=== PATIENT | female | born 2000 | race Caucasian/White ===

== ENCOUNTER 2024-11-22 21:50 | Emergency (ER) | payer OTHER, SELFPAY ==
[2024-11-22 21:51] VITALS: BP 110/65; PULSE 138; TEMP 36.4; O2SAT 99; BMI 17.8
--- NOTE | 2024-11-22 22:15 | ED.NAVMDI1 ---
HPI - Nausea/Vomiting/Diarrhea General Chief complaint: Nausea/Vomiting/Diarrhea Stated complaint: nausea, vomiting Time Seen by Provider: 11/22/24 21:52 Source: patient Mode of arrival: walk-in History of Present Illness HPI Narrative: 24-year-old female presents for nausea and vomiting. She apparently has issues with chronic nausea and has seen specialist but no specific diagnosis has been made. The nausea got much worse this morning and she has been vomiting. No hematemesis or fever. Her significant other answers most of the questions for her because she is so uncomfortable. Related Data Previous Rx's ?Medication ?Instructions ?Recorded ondansetron 4 mg disintegrating 4 mg PO Q6H PRN nausea and 11/22/24 tablet vomiting #20 tabs Allergies Allergy/AdvReac Type Severity Reaction Status Date / Time No Known Drug Allergies Allergy Verified 11/22/24 21:55 Review of Systems ROS Narrative A ten point review of systems is negative except as noted above. PFSH PFSH Social History Little interest or pleasure in doing things: not at all Feeling down, depressed, or hopeless: not at all Exam Narrative Exam Narrative: Nurses note and vital signs reviewed and patient is not hypoxic. General: The patient appears uncomfortable and Skin: Warm, dry, pallor noted. There is no rash noted. Head: Normocephalic, atraumatic Eye: Normal conjunctiva, no drainage Ears, Nose, Mouth, and Throat: oral mucosa is slightly dry. Nares patent. Cardiovascular: Regular Rate and Rhythm Respiratory: Patient is in no distress, no accessory muscle use, lungs are clear to auscultation, no wheezing, rales or rhonchi Back: non-tender GI: Soft and nondistended Musculoskeletal: The patient has no evidence of calf tenderness, no pitting edema, symmetrical pulses noted bilaterally Neurological: Awake and alert Psychiatric: Cooperative, appears anxious Constitutional Vital Signs, click to edit/add: Last Vital Signs Temp 97.6 F 11/22/24 21:51 Pulse 138 H 11/22/24 21:51 Resp 20 11/22/24 21:51 BP 110/65 11/22/24 21:51 Pulse Ox 99 11/22/24 21:51 O2 Del Method Room Air 11/22/24 21:51 Course Vital Signs Vital signs: Vital Signs Temperature 97.6 F 11/22/24 21:51 Pulse Rate 138 H 11/22/24 21:51 Respiratory Rate 20 11/22/24 21:51 Blood Pressure 110/65 11/22/24 21:51 Pulse Oximetry 99 11/22/24 21:51 Oxygen Delivery Method Room Air 11/22/24 21:51 Temperature 97.6 F 11/22/24 21:51 Pulse Rate 138 H 11/22/24 21:51 Respiratory Rate 20 11/22/24 21:51 Blood Pressure 110/65 11/22/24 21:51 Pulse Oximetry 99 11/22/24 21:51 Oxygen Delivery Method Room Air 11/22/24 21:51 MDM - Nausea/Vomiting/Diarrhea MDM Narrative Medical decision making narrative: CAT scan shows enterocolitis. She seems to be feeling improved and is drinking some liquids now after being given IV fluids and IV Zofran. Blood work nonspecific, WBC is 18,000. Treatment diagnosis and follow-up were discussed with the patient and her significant other. Differential Diagnosis Differential diagnosis: Likely food poisoning, gastroenteritis and dehydration Lab Data Attestation: I reviewed the patient's lab results. Labs: Lab Results 11/22/24 Range/Units 22:00 WBC 18.7 H (4.0-11.0) 10^3/uL RBC 4.39 (4.20-5.40) 10^6/uL Hgb 12.9 (12.0-16.0) g/dL Hct 38.4 (36.0-48.0) % MCV 87.5 (81.0-99.0) fL MCH 29.4 (26.7-34.0) pg MCHC 33.6 (29.9-35.2) g/dL RDW 12.5 (11.0-15.0) % Plt Count 332 (150-450) 10^3/uL MPV 10.6 (9.5-13.5) fL Neut % (Auto) 94.7 H (43.0-75.0) % Lymph % (Auto) 3.4 L (20.5-60.0) % [place] % (Auto) 1.3 L (1.7-12.0) % Eos % (Auto) 0.1 L (0.9-7.0) % Baso % (Auto) 0.1 L (0.2-2.0) % Neut # (Auto) 17.7 H (1.4-6.5) 10^3/uL Lymph # (Auto) 0.6 L (1.2-3.8) 10^3/uL [place] # (Auto) 0.2 L (0.3-0.8) 10^3/uL Eos # (Auto) 0.0 (0.0-0.7) 10^3/uL Baso # (Auto) 0.0 (0.0-0.1) 10^3/uL Abs Immat Gran (auto) 0.08 H (0.00-0.03) 10^3/uL Imm/Tot Granulo (auto) 0.4 (0.0-0.5) % Sodium 141 (136-145) mmol/L Potassium 3.1 L (3.5-5.1) mmol/L Chloride 104 (98-107) mmol/L Carbon Dioxide 25.7 (21.0-32.0) mmol/L Anion Gap 14.4 BUN 14.0 (7.0-18.0) mg/dL Creatinine 0.92 (0.55-1.02) mg/dL Est GFR ( Amer) >60 (>=60 mL/min/1.73m^2) Est GFR (Non-Af Amer) >60 (>=60 mL/min/1.73m^2) BUN/Creatinine Ratio 15.2 Glucose 186 H (74-106) mg/dL Calcium 8.8 (8.5-10.1) mg/dL Serum HCG, Qual Negative (NEGATIVE) Imaging Data CT scan - abdomen: Radiologist's impression: ITS Impressions Abdomen/Pelvis CT 11/22/24 22:29 IMPRESSION: 1. Normal appendix. No inflammatory changes within the abdomen or the pelvis. 2. Scattered air-fluid levels present within prominent nondilated small and large bowel which may be secondary to an underlying mild enterocolitis. Electronically authenticated by: PATY PINEDA Date: 11/22/2024 23:35 Discharge Plan Discharge Chief Complaint: Nausea/Vomiting/Diarrhea Clinical Impression: Enterocolitis Patient Disposition: Home, Self-Care Time of Disposition Decision: 23:49 Condition: Good Mode of Transportation: Private Vehicle Prescriptions / Home Meds: New ondansetron 4 mg tablet,disintegrating 4 mg PO Q6H PRN (Reason: nausea and vomiting) Qty: 20 0RF Print Language: Ukrainian Instructions: Colitis (ED), Enteritis (ED) Referrals: MICHAEL CACERES [Primary Care Provider] - 1 week
[2024-11-22] MEDS: ONDANSETRON PF 4 MG/2 ML VIAL IV (22:19)
[2024-11-22] MEDS: 0.9 % SODIUM CHLORIDE 1,000 ML 1000 ML IV (22:19)
[2024-11-22 22:20] LABS: Basophils Percent Auto 0.1 % (0.2-2.0); Eosinophils Percent Auto 0.1 % (0.9-7.0); Hematocrit 38.4 % (36.0-48.0); Hemoglobin 12.9 g/dL (12.0-16.0); Immature Granulocytes Abs Auto 0.08 10^3/uL (0.00-0.03); Immature Granulocytes Pct Auto 0.4 % (0.0-0.5); Lymphocytes Absolute Auto 0.6 10^3/uL (1.2-3.8); Lymphocytes Percent Auto 3.4 % (20.5-60.0); Mean Corpuscular HGB Conc 33.6 g/dL (29.9-35.2); Mean Corpuscular Hemoglobin 29.4 pg (26.7-34.0); Mean Corpuscular Volume 87.5 fL (81.0-99.0); Mean Platelet Volume 10.6 fL (9.5-13.5); Monocytes Absolute Auto 0.2 10^3/uL (0.3-0.8); Monocytes Percent Auto 1.3 % (1.7-12.0); Neutrophils Absolute Auto 17.7 10^3/uL (1.4-6.5); Neutrophils Percent Auto 94.7 % (43.0-75.0); Platelet Count 332 10^3/uL (150-450); Red Blood Count 4.39 10^6/uL (4.20-5.40); Red Cell Distribution Width 12.5 % (11.0-15.0); White Blood Count 18.7 10^3/uL (4.0-11.0)
[2024-11-22 22:25] LABS: HCG Qualitative NEGATIVE (NEGATIVE); Internal Control Within Normal Limits
[2024-11-22 22:26] LABS: Anion Gap 14.4; BUN Creatinine Ratio 15.2; Calcium 8.8 mg/dL (8.5-10.1); Carbon Dioxide 25.7 mmol/L (21.0-32.0); Chloride 104 mmol/L (98-107); Estimated GFR (African America >60 (>=60 mL/min/1.73m^2); Estimated GFR (Non-African Ame >60 (>=60 mL/min/1.73m^2); Glucose 186 mg/dL (74-106); Potassium 3.1 mmol/L (3.5-5.1); Sodium 141 mmol/L (136-145)
--- NOTE | 2024-11-22 22:29 | CT_ITS ---
The [address] [address] Patient Name: ELISEO MURCIA MRN: [id number] date: 2000 Sex: F Assigned Patient Location: ER Current Patient Location: ER Accession/Order Number: [id number] Exam Date: 11/22/2024 22:45 Report Date: 11/22/2024 23:35 At the request of: TED VARMA Procedure: CT abdomen pelvis w con EXAM: CT abdomen pelvis w con HISTORY: Vomiting, WBC 18,000. COMPARISON: None. TECHNIQUE: Enhanced helical acquisition obtained through the abdomen and the pelvis. Dose reduction techniques were achieved by using automated exposure control and/or adjustment of mA and/or kV according to patient size and/or use of iterative reconstruction technique. FINDINGS: The visualized lung bases and the pleural spaces are clear. Unremarkable gallbladder. No significant biliary ductal dilatation. The liver, spleen, pancreas, adrenal glands and the kidneys are unremarkable. No enlarged lymph nodes within the abdomen or the pelvis. Normal appendix. IUD is present. No ascites or focal intraperitoneal fluid collections. Moderate stool burden. Scattered air-fluid levels within small and large bowel which may be secondary to an underlying mild enterocolitis. CT/CT abdomen pelvis w con IMPRESSION: 1. Normal appendix. No inflammatory changes within the abdomen or the pelvis. 2. Scattered air-fluid levels present within prominent nondilated small and large bowel which may be secondary to an underlying mild enterocolitis. Electronically authenticated by: PATY PINEDA Date: 11/22/2024 23:35
[2024-11-23 00:10] VITALS: BP 101/49; PULSE 117; O2SAT 97
== END 2024-11-23 00:10 | disposition home or self-care (01) ==
PROVIDERS: Emergency Provider Emergency Medicine; PCP Nurse Practitioner
DX: K52.9 Noninfective gastroenteritis and colitis, unspecified (principal)
CPT/HCPCS: 36415; 74177; 80048; 84703; 85025; 96361; 96374; 99285; J2405; Q9967

== ENCOUNTER 2025-03-01 17:02 | Emergency (ER) | payer OTHER, SELFPAY ==
[2025-03-01 17:12] VITALS: BP 132/64; PULSE 96; TEMP 36.8; O2SAT 100; BMI 17.8
--- OUTSIDE RECORDS SUMMARY | 2025-03-01 17:13 | XMS_ITS | CCD ---
Author Organization [facility] Care Team Providers Care Sleeve Separator Name Role Phone FABIEN BUSTOS JR Unavailable Unavailable FABIEN BUSTOS JR Unavailable Unavailable FABIEN BUSTOS JR Unavailable Unavailable FABIEN BUSTOS JR Unavailable Unavailable FABIEN BUSTOS JR Unavailable Unavailable Fabien Reyes Primary Care Provider FABIEN REYES JR Primary Care Unavailabl e Unknown, Referring Provider Unavailable Unav ailable Unavailable Unavailable SARAN GOMEZ Primary Care Physician [phone] Angeline Durbin Unavailable Zak Lorenz Unavailable Tammi Pulido Primary Care Physician [phone] Unallocated, [place] Provider Primary Care Provider FLAVIA WU Attending Unavailable AVERY MCLAIN Attending Unavailable OLIVA FIGUEROA Attending Unavailable NON STAFF Primary Care Provider Unavailabl e DO Thien Olea Emergency Provider NON STAFF Primary Care Unavailable Thien Olea Attending Unavailable Thien Olea Admitting Unavailable Nicki Anglin Admitting Unavailable Nicki Anglin Attending Unavailable Nicki Anglin Attending Unavailable GABE ALBARRAN Attending Unavailabl e Tammi Pulido Attending Unavailable Tammi Pulido Attending Unavailable Tammi Pulido Attending Unavailable Tammi Pulido Attending Unavailable Tammi Pulido Attending Unavailable Brigette Murcia Attending Unavailable Brigette Murcia Attending Unavailable Unallocated , Noms Provider Primary Care Provi lexus Ashok, PILOT CONTROL OPERATOR Tammi Herr Attending Unavailable Ashok, PILOT CONTROL OPERATOR Tammi Herr Admitting Unavailable Ashok, Tammi Herr Attending Unavailable Ashok, Tammi Herr Attending Unavailable Ashok, Tammi L Attending Unavailable Ashok, Tammi L Attending Unavailable Ashok, Tammi L Admitting Unavailable GABE ALBARRAN Attending Unavailabl e GABE ALBARRAN Attending Unavailabl e Allergies Allergy Classification Reported Allergen(s) Allergy Type Date of Onset Reaction(s) Facility (5 sources) Lactase Drug Allergy GI intolerance [facility] Medications Current Medications Medication Drug Class(es) Dates Sig (Normalized) Sig (Original) albuterol 0.83 mg/ml inhalation solution (7 sources) beta2-Adrenergic Agonist Start: 08-27-2024 take 2.5 mg by inhalation every six hours for wheezing albuterol 0.083% Inh Ingrid 3 mL 2.5 mg, 3 mL, Inhalation, q6hr for wheezing, 25 EA, Refill(s) 0 Start Date: 08/27/24 Status: Ordered Quantity: 25.0 Unit: EA Repeat number: 1 amoxicillin 875 mg oral tablet (2 sources) Penicillin-class Antibacterial Start: 09-14-2024 End: 09-19-2024 take 1 tablet by mouth twice daily amoxicillin 875 mg Tab 875 mg = 1 tab(s), Oral, BID, X 5 day(s), # 10 tab(s), Refills(s) 0, Pharmacy: [facility]/pharmacy #[id number], 165.5, cm, 09/14/24 12:45:00 EST, Height/Length Dosing, 49.9, kg, 09/14/24 12:45:00 EST, Weight Dosing Start Date: 09/14/24 Stop Date: 09/19/24 Status: Ordered azithromycin 250 mg oral tablet (2 sources) Macrolide Antimicrobial Start: 05-16-2024 End: 05-21-2024 Zithromax 250 mg Tab = 1 packet(s), Oral, As Directed, as directed on package labeling, X 5 day(s), # 6 tab(s), Refills(s) 0, [id number] 165.5, cm, 05/16/24 10:46:00 EDT, Height/Length Dosing, 50, kg, 05/16/24 10:46:00 EDT, Weight Dosing Start Date: 05/16/24 Stop Date: 05/21/24 Status: Ordered Start: 10-20-2023 End: 10-25-2023 azithromycin 250 mg Tab = 1 packet(s), Oral, As Directed, as directed on package labeling, X 5 day(s), # 6 tab(s), Refills(s) 0, Pharmacy: [facility]/pharmacy #[id number], 167, cm, 10/20/23 10:18:00 EST, Height/Length Dosing, 46.9, kg, 10/20/23 10:18:00 EST, Weight Dosing Start Date: 10/20/23 Stop Date: 10/25/23 Status: Ordered benzonatate 200 mg oral capsule (1 source) Non-narcotic Antitussive Start: 10-20-2023 End: 10-27-2023 take 1 capsule by mouth three times daily benzonatate 200 mg oral capsule 200 mg = 1 cap(s), Oral, TID, X 7 day(s), # 21 cap(s), Refills(s) 0, [id number] 167, cm, 10/20/23 10:18:00 EST, Height/Length Dosing, 46.9, kg, 10/20/23 10:18:00 EST, Weight Dosing Start Date: 10/20/23 Stop Date: 10/27/23 Status: Ordered docusate sodium 100 mg oral capsule (1 source) Start: 08-24-2019 End: 09-07-2019 take 1 capsule by mouth twice daily docusate sodium (COLACE) 100 MG capsule Take 1 capsule by mouth 2 times daily for 14 days 28 capsule 0 08/24/2019 09/07/2019 Active doxycycline monohydrate 50 mg oral tablet (2 sources) Tetracycline-class Drug Start: 06-12-2024 take 1 tablet by mouth in the morning doxycycline (Adoxa) 50 MG tablet Indications: Acne vulgaris Take 1 tablet (50 mg) by mouth in the morning and 1 tablet (50 mg) before bedtime. 60 tablet 11 06/12/2024 Active loratadine 10 mg oral tablet (2 sources) Start: 07-06-2023 take 1 tablet by mouth every twenty-four hours Claritin 10 MG 1 tablet Orally Once a day for 30 days Jun, Active methylPREDNISolone 4 mg oral tablet (4 sources) Corticosteroid Start: 05-16-2024 End: 05-22-2024 Medrol 4 mg Tab = 1 packet(s), Oral, As Directed, as directed on package labeling, X 6 day(s), # 21 tab(s), Refills(s) 0, Pharmacy: [facility]/pharmacy #[id number], 165.5, cm, 05/16/24 10:46:00 EDT, Height/Length Dosing, 50, kg, 05/16/24 10:46:00 EDT, Weight Dosing Start Date: 05/16/24 Stop Date: 05/22/24 Status: Ordered Start: 10-20-2023 End: 10-26-2023 Medrol 4 mg Tab = 1 packet(s ), Oral, As Directed, as directed on package labeling, X 6 day(s), # 21 tab(s), Refills(s) 0, Pharmacy: [facility]/pharmacy #[id number], 167, cm, 10/20/23 10:18:00 EST, Height/Length Dosing, 46.9, kg, 10/20/23 10:18:00 EST, Weight Dosing Start Date: 10/20/23 Stop Date: 10/26/23 Status: Ordered Start: 07-06-2023 Medrol (Kwaku) 4 MG as directed Orally for daily dose take half with breakfast half with dinner for 6 days Jun, Active nitrofurantoin, macrocrystals 25 mg / nitrofurantoin, monohydrate 75 mg oral capsule (1 source) Nitrofuran Antibacterial Start: 08-24-2019 End: 08-31-2019 take 1 capsule by mouth twice daily nitrofurantoin, macrocrystal-monohydrate, (MACROBID) 100 MG capsule Take 1 capsule by mouth 2 times daily for 7 days 14 capsule 0 08/24/2019 08/31/2019 Active omeprazole 40 mg delayed release oral capsule (4 sources) Proton Pump Inhibitor Start: 08-24-2023 take 1 capsule by mouth once daily omeprazole 40 mg Cap-DR 40 mg = 1 cap(s), Oral, Daily, # 90 cap(s), Refills(s) 3, Pharmacy: [facility]/pharmacy #[id number], 167, cm, 08/24/23 9:42:00 EDT, Height/Length Dosing, 48.7, kg, 08/24/23 9:42:00 EDT, Weight Dosing Start Date: 08/24/23 Status: Ordered Start: 07-27-2023 take 1 capsule by [facility] once daily omeprazole 40 mg Cap-DR 40 mg = 1 cap(s), Oral, Daily, # 30 cap(s), Refills(s) 0, Pharmacy: [facility]/pharmacy #[id number], 167, cm, 07/27/23 10:36:00 EDT, Height/Length Dosing, 47.2, kg, 07/27/23 10:36:00 EDT, Weight Dosing Start Date: 07/27/23 Status: Ordered Start: 02-23-2022 take 1 capsule by [facility] once daily Omeprazole 20 MG Oral Capsule Delayed Release TAKE 1 CAPSULE BY MOUTH EVERY DAY Quantity: 30 Refills: 2 Ordered: 24-Mar-2022 Ashly JOHNSTONNDiamondTEXTILE CONSERVATORSarah Start : 23-Feb-2022 Active ondansetron 4 mg disintegrating oral tablet (14 sources) Serotonin-3 Receptor Antagonist Start: 11-05-2024 take 1 tablet by mouth three times daily as needed for nausea and vomiting ondansetron 4 mg Dis Tab See Instructions, DISSOLVE 1 TABLET IN MOUTH 3 TIMES A DAY NEEDED FOR NAUSEA AND VOMITING, # 10 tab(s), Refills(s) 1, Pharmacy: [facility] STORE [id number], 165.5, cm, 09/14/24 12:45:00 EST, Height/Length Dosing, 49.9, kg, 09/14/24 12:45:00 EST, Weight Dosing Start Date: 11/05/24 Status: Ordered Quantity: 10.0 Unit: tab(s) Repeat number: 1 Start: 08-08-2024 take 1 tablet by [facility] three times daily as needed for nausea and vomiting ondansetron 4 mg Dis Tab See Instructions, DISSOLVE 1 TABLET IN MOUTH 3 TIMES A DAY NEEDED FOR NAUSEA AND VOMITING, # 10 tab(s), Refills(s) 1, Pharmacy: [facility] STORE [id number], 165.5, cm, 05/16/24 10:46:00 EDT, Height/Length Dosing, 50, kg, 05/16/24 10:46:00 EDT, Weight Dosing Start Date: 08/08/24 Status: Ordered Start: 10-20-2023 take 1 tablet by maryjane th every six hours as needed for nausea ondansetron 4 mg Tab 4 mg = 1 tab(s), Oral, q6hr, PRN Nausea/Vomiting, # 12 tab(s), Refills(s) 1, Pharmacy: [facility]/pharmacy #[id number], 167, cm, 10/20/23 10:18:00 EST, Height/Length Dosing, 46.9, kg, 10/20/23 10:18:00 EST, Weight Dosing Start Date: 11/17/23 Status: Ordered polyethylene glycol 3350 07571 mg powder for oral solution (1 source) Osmotic Laxative Start: 08-24-2019 End: 09-23-2019 take 17 g by mouth once daily polyethylene glycol (MIRALAX) powder Take 17 g by mouth daily 510 g 0 08/24/2019 09/23/2019 Active promethazine hydrochloride 1.25 mg/ml oral solution (1 source) Phenothiazine Start: 03-07-2023 take 6.25 mg by mouth every six hours as needed for nausea promethazine 6.25 mg/5 mL Oral Syrup 6.25 mg = 5 mL, Oral, q6hr, PRN for nausea/vomiting, # 120 mL, Refills(s) 0 Start Date: 03/07/23 Status: Ordered 3 ml sodium chloride 9 mg/ml injection (1 source) Start: 08-24-2019 sodium chloride flush 0.9 % injection 10 mL tretinoin 0.25 mg/ml topical cream (2 sources) Retinoid Start: 06-12-2024 tretinoin (Retin-A) 0.025 % cream Indications: Acne vulgaris Apply thin layer to face at bedtime 45 g 11 06/12/2024 Active 24 hr venlafaxine 37.5 mg extended release oral capsule (20 sources) Serotonin and Norepinephrine Reuptake Inhibitor Start: 01-21-2025 take 1 capsule by mouth once daily venlafaxine 37.5 mg Cap-ER See Instructions, TAKE 1 CAPSULE BY MOUTH EVERY DAY, # 90 cap(s), Refills(s) 0, Pharmacy: [facility] STORE [id number], 165, cm, 11/26/24 12:35:00 EST, Height/Length Dosing, 47.8, kg, 11/26/24 12:35:00 EST, Weight Dosing Start Date: 01/21/25 Status: Ordered Quantity: 90.0 Unit: cap(s) Repeat number: 1 Start: 10-25-2024 take 1 capsule by mo ut once daily venlafaxine 37.5 mg Cap-ER See Instructions, TAKE 1 CAPSULE BY MOUTH EVERY DAY, # 90 cap(s), Refills(s) 0, Pharmacy: [facility] ST[facility] [id number], 165.5, cm, 09/14/24 12:45:00 EST, Height/Length Dosing, 49.9, kg, 09/14/24 12:45:00 EST, Weight Dosing Start Date: 10/25/24 Status: Ordered Start: 07-25-2024 take 37.5 mg by mout once daily Venlafaxine Active 37.5 MG PO Daily August 15, 2024 12:00am Start: 07-22-2021 take 1 capsule by [facility] once daily Effexor XR 37.5 mg Cap-ER 37.5 mg = 1 cap(s), Oral, Daily, # 90 cap(s), Refills(s) 0, [id number] 167, cm, 01/04/24 8:51:00 EDT, Height/Length Dosing, 50, kg, 01/04/24 8:51:00 EDT, Weight Dosing Start Date: 04/27/24 Status: Ordered take 1 tablet by [facility] once daily at mealtime Effexor 50 MG 1 tablet with food Orally Once a day Active Effexor 37.5 MG TABS Quantity: 0 Refills: 0 Ordered: 23-Feb-2022 DO Active Zofran ODT 4 mg Tab-Dis (8 sources) Start: 01-18-2025 take 1 tablet by mouth every eight hours as needed for nausea Zofran ODT 4 mg Tab-Dis 4 mg = 1 tab(s), Oral, q8hr, PRN Nausea/Vomiting, # 30 tab(s), Refills(s) 1, Pharmacy: [facility]/pharmacy #[id number], 165, cm, 11/26/24 12:35:00 EST, Height/Length Dosing, 47.8, kg, 11/26/24 12:35:00 EST, Weight Dosing Start Date: 01/18/25 Status: Ordered Quantity: 30.0 Unit: tab(s) Repeat number: 2 Indication: Nausea Start: 11-26-2024 take 1 tablet by maryjane th every eight hours as needed for nausea Zofran ODT 4 mg Tab-Dis 4 mg = 1 tab(s), Oral, q8hr, PRN Nausea/Vomiting, # 30 tab(s), Refills(s) 1, Pharmacy: [facility]/pharmacy #[id number], 165, cm, 11/26/24 12:35:00 EST, Height/Length Dosing, 47.8, kg, 11/26/24 12:35:00 EST, Weight Dosing Start Date: 11/26/24 Status: Ordered Start: 04-27-2024 take 1 tablet by maryjane th three times daily as needed for nausea Zofran ODT 4 mg Tab-Dis 4 mg = 1 tab(s), Oral, TID, PRN Nausea/Vomiting, # 10 tab(s), Refills(s) 1, Pharmacy: [facility]/pharmacy #[id number], 167, cm, 01/04/24 8:51:00 EDT, Height/Length Dosing, 50, kg, 01/04/24 8:51:00 EDT, Weight Dosing Start Date: 04/27/24 Status: Ordered Start: 08-24-2023 take 1 tablet by maryjane th three times daily as needed for nausea Zofran ODT 4 mg Tab-Dis 4 mg = 1 tab(s), Oral, TID, PRN Nausea/Vomiting, # 10 tab(s), Refills(s) 1, Pharmacy: [facility]/pharmacy #[id number], 167, cm, 08/24/23 16:01:00 EDT, Height/Length Dosing, 47, kg, 08/24/23 16:01:00 EDT, Weight Dosing Start Date: 08/24/23 Status: Ordered Completed/Discontinued Medications Medication Drug Class(es) Dates Sig (Normalized) Sig (Original) hydrOXYzine hydrochloride 25 mg oral tablet (1 source) Antihistamine Start: 03-07-2023 take 8 tablets by mouth once daily as needed hydrOXYzine hydrochloride 25 mg Tab 25 mg = 1 tab(s), Oral, QID, PRN Nausea, Can take up to 2 tabs in a single dose. Do not exceed 8 tabs per day., # 120 tab(s), Refills(s) 1, Pharmacy: [facility]/pharmacy #[id number], 167, cm, 03/07/23 13:34:00 EDT, Height/Length Dosing, 48.1, kg, 03/07/23 13:43:00... Start Date: 03/07/23 Status: Ordered iohexol (OMNIPAQUE 240) injection 50 mL (1 source) Start: 08-24-2019 End: 08-24-2019 iohexol (OMNIPAQUE 240) injection 50 mL Iopamidol (1 source) Radiographic Contrast Agent Start: 08-24-2019 End: 08-24-2019 iopamidol (ISOVUE-370) 76 % injection 110 mL linaclotide 0.072 mg oral capsule (2 sources) Guanylate Cyclase-C Agonist Start: 02-23-2022 take 1 capsule by mouth once daily Linzess 72 MCG Oral Capsule TAKE 1 CAPSULE Daily Quantity: 90 Refills: 3 Ordered: 23-Feb-2022 Pepple RECOVERY MANAGER-TEXTILE CONSERVATOR, Sarah Start : 23-Feb-2022 Active Prior auth, prior failed attempts of benefiber and Miralax, IBS-C oseltamivir 75 mg oral capsule (2 sources) Neuraminidase Inhibitor Start: 11-29-2023 End: 12-04-2023 take 1 capsule by mouth in the morning oseltamivir (Tamiflu) 75 MG capsule Indications: Influenza A Take 1 capsule (75 mg) by mouth in the morning and 1 capsule (75 mg) before bedtime. Do all this for 5 days. 10 capsule 0 11/29/2023 12/04/2023 Problems Active Problems Problem Classification Problem Date Documented Da te Episodic/Chronic Abdominal pain (20 sources) Unspecified abdominal pain; Translations: [Abdominal pain] Onset: 8 07-27-2023 Episodic Anxiety disorders (1 source) Anxiety disorder; Translations: [Anxiety disorder, unspecified] Onset: Chronic Chronic obstructive pulmonary disease and bronchiectasis (10 sources) Bronchitis 10-20-2023 Episodic Esophageal disorders (2 sources) Gastroesophageal reflux disease; Translations: [Esophageal reflux] Chronic Genitourinary symptoms and ill-defined conditions (1 source) Dysuria; Translations: [Dysuria] Episodic Influenza (2 sources) Influenza due to Influenza A virus; Translations: [Influenza due to other identified influenza virus with other respiratory manifestations] 11-29-2023 Episodic Malaise and fatigue (1 source) Fatigue 02-13-2025 Episodic Mood disorders (11 sources) Depression 08-24-2023 Chronic Nausea and vomiting (20 sources) Nausea; Translations: [Nausea] Onset: 3 Episodic Other gastrointestinal disorders (2 sources) Irritable bowel syndrome characterized by constipation; Translations: [Irritable bowel syndrome] Chronic Other gastrointestinal disorders (1 source) Constipation; Translations: [Constipation, unspecified constipation type] Episodic Other gastrointestinal disorders (1 source) Constipation, unspecified; Translations: [Constipation, unspecified] Onset: 3 Episodic Other gastrointestinal disorders (12 sources) Heartburn 07-27-2023 Episodic Other gastrointestinal disorders (12 sources) History of irritable bowel syndrome 07-27-2023 Episodic Other lower respiratory disease (1 source) Other forms of dyspnea; Translations: [Chronic dyspnea] 08-15-2024 Episodic Other lower respiratory disease (1 source) Shortness of breath; Translations: [Shortness of breath] Onset: 4 Episodic Other lower respiratory disease (7 sources) Dyspnea 08-27-2024 Episodic Other nutritional; endocrine; and metabolic disorders (15 sources) Body mass index less than 20; Translations: [Body mass index (BMI) 19.9 or less, adult] Onset: Episodic Other nutritional; endocrine; and metabolic disorders (12 sources) Underweight; Translations: [Underweight] Onset: 4 08-17-2023 Episodic Other nutritional; endocrine; and metabolic disorders (1 source) Loss of appetite 02-13-2025 Episodic Other upper respiratory disease (1 source) Seasonal allergy 02-13-2025 Chronic Other upper respiratory infections (10 sources) Sinusitis 10-20-2023 Chronic Other upper respiratory infections (6 sources) Acute pharyngitis, unspecified; Translations: [Acute sinusitis, unspecified] Onset: Episodic Otitis media and related conditions (10 sources) Otitis media; Translations: [Otitis media, unspecified, unspecified ear] Onset: 4 Episodic Suicide and intentional self-inflicted injury (1 source) Suicidal thoughts; Translations: [Suicidal ideations] Onset: 3 Episodic Unclassified (2 sources) Unknown / UNK(Unknown) Onset: 8 Unclassified (20 sources) Patient encounter status 12-21-2022 Past or Other Problems Problem Classification Problem Date Documented Da te Episodic/Chronic Other skin disorders (2 sources) Acne vulgaris; Translations: [Acne vulgaris] 06-12-2024 Episodic Unclassified (1 source) R10.9/R14.0/K22. 4/LINDEN OFF/DR Onset: 11-17-2017 Unclassified (1 source) Cough R05.9 Results Test Name Value Interpretation Reference Range Facility T3 Freeon 02-15-2025 Free T3 [Mass/Vol] 3.0 pg/mL Invalid Interpretation Code 2.0-4.4 [facility] Comment on above: Result Comment: Perf ormed at: [facility] [address] [id number] PhD Clementine Diego Performed By: #### 2 [id number] #### [facility] [address] [place] [address] Ambulatory Visit Summaryon 0 02-13-2025 Ambulatory Visit Summary Ambulatory Visit Summary TOO HANSA J :2000 Visit Date:02/13/2025 Ambulatory Visit Instructions Your Diagnosis Fatigue No appetite Underweight Seasonal allergies BMI less than 19,adult Non-smoker Your Care Team Attending Physician - Tammi Braun Primary Care Physician - Tammi Braun This Is Your Medications List albuterol (albuterol 0.083% Inh Ingrid 3 mL) ondansetron (ondansetron 4 mg Dis Tab) venlafaxine (venlafaxine 37.5 mg Cap-ER) Procedures Performed Surgery. Discharge Vitals Heart Rate (Peripheral) 98 Respiratory Rate 18 Blood Pressure 94/60 Height 165.0 cm Height 65 in Weight 48.8 kg Weight 107.585 lb BMI 17.92 Medications What How Much When Instructions Unchanged albuterol (albuterol 0.083% Inh Ingrid 3 mL) 3 Milliliter Inhalation Every 6 hours as needed for for wheezing Unchanged ondansetron (ondansetron 4 mg Dis Tab) See instructions DISSOLVE 1 TABLET IN MOUTH 3 TIMES A DAY NEEDED FOR NAUSEA AND VOMITING Unchanged venlafaxine (venlafaxine 37.5 mg Cap-ER) See instructions TAKE 1 CAPSULE BY MOUTH EVERY DAY Allergies No Known Allergies Problems Ongoing - Any problem that you are currently receiving treatment for. BMI less than 19,adult Bronchitis Chronic nausea Fatigue Heart burn History of IBS Left upper quadrant pain Nausea No appetite Otitis media Pelvic pain Pre-op exam Pre-op testing Seasonal allergies Shortness of breath Sinusitis Underweight Historical - Any problem that you are no longer receiving treatment for. Depression Patient Survey You may receive a survey via text or e-mail asking about your office visit. Please share your experience with us by completing your survey. We appreciate your feedback and thank you for choosing us for your care. Normal [facility] CBC w/ Auto Diffon 5 Basophils/100 WBC (Bld) 0.6 % Normal 0.0-2.0 [facility] Comment on above: Performed By: #### 2 [id number] #### [facility] [address] [place] [address] Basophils/Leukocytes Auto (Bld) [Pure # fraction] 0.0 E9/L Normal 0.0-0.2 [facility] Comment on above: Performed By: #### 2 [id number] #### [facility] [address] [place] [address] Eosinophils (Bld) [#/Vol] 0.1 E9/L Normal 0.0-0.5 [facility] Comment on above: Performed By: #### 2 [id number] #### [facility] [address] [place] [address] Eosinophils/100 WBC (Bld) 1.0 % Normal 0.0-8.0 [facility] Comment on above: Performed By: #### 2 [id number] #### [facility] [address] [place] [address] Erythrocyte distribution width (RBC) [Ratio] 14.0 % Normal 10.9-14.2 [facility] Comment on above: Performed By: #### 2 [id number] #### [facility] [address] [place] [address] Hematocrit (Bld) [Volume fraction] 39.9 % Normal 34.0-46.0 [facility] Comment on above: Performed By: #### 2 [id number] #### [facility] [address] [place] [address] Hemoglobin (Bld) [Mass/Vol] 13.3 g/dL Normal 12.0-16.0 [facility] Comment on above: Performed By: #### 2 [id number] #### [facility] [address] [place] [address] Lymphocytes (Bld) [#/Vol] 1.8 E9/L Normal 1.0-4.0 [facility] Comment on above: Performed By: #### 2 [id number] #### [facility] [address] [place] [address] Lymphocytes/100 WBC (Bld) 22.5 % Normal 14.0-50.0 [facility] Comment on above: Performed By: #### 2 [id number] #### [facility] [address] [place] [address] MCH (RBC) [Entitic mass] 29.7 pg Normal 27.0-34.0 [facility] Comment on above: Performed By: #### 2 [id number] #### [facility] [address] [place] [address] MCHC (RBC) [Mass/Vol] 33.3 g/dL Normal 31.4-36.0 [facility] Comment on above: Performed By: #### 2 [id number] #### [facility] [address] [place] [address] MCV (RBC) [Entitic vol] 89.2 fL Normal 80.0-100.0 [facility] Comment on above: Performed By: #### 2 [id number] #### [facility] [address] [place] [address] Monocytes (Bld) [#/Vol] 0.4 E9/L Normal 0.2-1.0 [facility] Comment on above: Performed By: #### 2 [id number] #### [facility] [address] [place] [address] Neutrophils (Bld) [#/Vol] 5.6 E9/L Normal 2.0-7.5 [facility] Comment on above: Performed By: #### 2 [id number] #### [facility] [address] [place] [address] Neutrophils/100 WBC (Bld) 70.4 % Normal 36.0-75.0 [facility] Comment on above: Performed By: #### 2 [id number] #### [facility] [address] [place] [address] Platelet mean volume (Bld) [Entitic vol] 9.4 fL Normal 6.4-10.8 [facility] Comment on above: Performed By: #### 2 [id number] #### [facility] [address] [place] [id number] Platelets (Bld) [#/Vol] 323.0 E9/L Normal 150.0-500. 0 [facility] Comment on above: Performed By: #### 2 [id number] #### [facility] [address] [place] [address] RBC (Bld) [#/Vol] 4.5 E12/L Normal 4.3-5.9 [facility] Comment on above: Performed By: #### 2 [id number] #### [facility] [address] [place] [address] WBC corrected for nucl RBC Auto (Bld) [#/Vol] 7.9 E9/L Normal 4.0-11.[address] [facility] [facility] Comment on above: Performed By: #### [id number] #### [facility] [address] [place] [id number] CHEMISTRYOrdered By: SYSTEM SYSTEM on 02-13-2025 25-hydroxyvitamin D3 [Mass/Vol] 13.8 ng/mL Low 30.0 - 100.0 ng/mL Remisol Chem Albumin [Mass/Vol] 4.2 g/dL Normal 3.3 - 5.0 gm/dL Remisol Chem Albumin/Globulin [Mass ratio] 1.4 {ratio} Normal 1.1 - 2.2 Remisol Chem ALP [Catalytic activity/Vol] 63 [iU]/d Normal 21 - 98 Int._Unit/ L Remisol Chem ALT No additional P-5'-P [Catalytic activity/Vol] 11 [iU]/d Normal 6 - 46 Int._Unit/ L Remisol Chem Anion gap [Moles/Vol] 11 mmol/L Normal 6 - 16 mEq/L Remisol Chem AST [Catalytic activity/Vol] 14 [iU]/d Normal 5 - 43 Int._Unit/ L Remisol Chem Bilirubin [Mass/Vol] 0.7 mg/dL Normal 0.0 - 1 .1 mg/dL Remisol Chem Calcium [Mass/Vol] 9.0 mg/dL Normal 8.9 - 11. 1 mg/dL Remisol Chem Chloride [Moles/Vol] 106 mmol/L Normal 101 - 1 11 mmol/L Remisol Chem CO2 [Moles/Vol] 26 mmol/L Normal 21 - 31 mmol/L Remisol Chem Cobalamin (Vitamin B12) [Mass/Vol] 465 pg/mL Normal 50 - 1500 pg/mL Remisol Chem Creatinine [Mass/Vol] 0.6 mg/dL Normal 0.5 - 1.3 mg/dL Remisol Chem eGFR 128 mL/min/1.73 m2 Normal >=59mL/mi n /1.73 m2 Remisol Chem Ferritin [Mass/Vol] 7 ng/mL Low 11 - 307 ng/mL Remisol Chem Free T4 [Mass/Vol] 0.77 ng/dL Normal 0.58 - 1.64 ng/dL Remisol Chem Globulin (S) [Mass/Vol] 2.9 g/dL Normal 1.4 - 4.0 gm/dL Remisol Chem Glucose [Mass/Vol] 69 mg/dL Normal 55 - 199 mg/dL Remisol Chem Iron [Mass/Vol] 116 ug/dL Normal 35 - 153 mcg/dL Remisol Chem Potassium [Moles/Vol] 4.1 mmol/L Normal 3.5 - 5.3 mmol/L Remisol Chem Protein [Mass/Vol] 7.1 g/dL Normal 6.0 - 7.8 gm/dL Remisol Chem Sodium [Moles/Vol] 139 mmol/L Normal 135 - 145 mmol/L Remisol Chem TSH Qn 1.91 m[IU]/L Normal 0.34 - 5.60 mcIU/mL Remisol Chem Urea nitrogen [Mass/Vol] 12 mg/dL Normal 5 - 21 mg/dL Remisol Chem Urea nitrogen/Creatinine [Mass ratio] 20 mg/mg Normal 10 - 20 Remisol Chem CMPon 02-13-2025 Albumin [Mass/Vol] 4.2 g/dL Normal 3.3-5.0 [facility] Comment on above: Order Comment: offic e called only got one sst, office to put cmp label on sst tube and place other labels in bag to share. [id number] 02/13/2025 10:04:13 EDT Performed By: #### 2 [id number] #### [facility] [address] [place] [address] Albumin/Globulin (S) [Mass conc ratio] 1.4 Normal 1.1-2.2 [facility] Comment on above: Order Comment: offic e called only got one sst, office to put cmp label on sst tube and place other labels in bag to share. [id number] 02/13/2025 10:04:13 EDT Performed By: #### 2 [id number] #### [facility] [address] [place] [address] ALP [Catalytic activity/Vol] 63 Int._Unit/L Normal 21-98 [facility] Comment on above: Order Comment: offic e called only got one sst, office to put cmp label on sst tube and place other labels in bag to share. [id number] 02/13/2025 10:04:13 EDT Performed By: #### 2 [id number] #### [facility] [address] [place] [address] ALT No additional P-5'-P [Catalytic activity/Vol] 11 Int._Unit/L Normal 6-46 [facility] Comment on above: Order Comment: offic e called only got one sst, office to put cmp label on sst tube and place other labels in bag to share. [id number] 02/13/2025 10:04:13 EDT Performed By: #### 2 [id number] #### [facility] [address] [place] [address] Anion gap [Moles/Vol] 11 mmol/L Normal 6-16 [facility] Comment on above: Order Comment: offic e called only got one sst, office to put cmp label on sst tube and place other labels in bag to share. [id number] 02/13/2025 10:04:13 EDT Performed By: #### 2 [id number] #### [facility] [address] [place] [address] AST [Catalytic activity/Vol] 14 Int._Unit/L Normal 5-43 [facility] Comment on above: Order Comment: offic e called only got one sst, office to put cmp label on sst tube and place other labels in bag to share. [id number] 02/13/2025 10:04:13 EDT Performed By: #### 2 [id number] #### [facility] [address] [place] [address] Bilirubin [Mass/Vol] 0.7 mg/dL Normal 0.0-1.1 [facility] Comment on above: Order Comment: offic e called only got one sst, office to put cmp label on sst tube and place other labels in bag to share. [id number] 02/13/2025 10:04:13 EDT Performed By: #### 2 [id number] #### [facility] [address] [place] [address] Calcium [Mass/Vol] 9.0 mg/dL Normal 8.9-11.1 [facility] Comment on above: Order Comment: offic e called only got one sst, office to put cmp label on sst tube and place other labels in bag to share. [id number] 02/13/2025 10:04:13 EDT Performed By: #### 2 [id number] #### [facility] [address] [place] [address] Chloride [Moles/Vol] 106 mmol/L Normal 101-111 [facility] Comment on above: Order Comment: offic e called only got one sst, office to put cmp label on sst tube and place other labels in bag to share. [id number] 02/13/2025 10:04:13 EDT Performed By: #### 2 [id number] #### [facility] [address] [place] [address] CO2 [Moles/Vol] 26 mmol/L Normal 21-[address] [facility] Comment on above: Order Comment: offic e called only got one sst, office to put cmp label on sst tube and place other labels in bag to share. [id number] 02/13/2025 10:04:13 EDT Performed By: #### 2 [id number] #### [facility] [address] [place] [address] Creatinine [Mass/Vol] 0.6 mg/dL Normal 0.5-1.3 [facility] Comment on above: Order Comment: offic e called only got one sst, office to put cmp label on sst tube and place other labels in bag to share. [id number] 02/13/2025 10:04:13 EDT Performed By: #### 2 [id number] #### [facility] [address] [place] [address] Globulin (S) [Mass/Vol] 2.9 g/dL Normal 1.4-4.0 [facility] Comment on above: Order Comment: offic e called only got one sst, office to put cmp label on sst tube and place other labels in bag to share. [id number] 02/13/2025 10:04:13 EDT Performed By: #### 2 [id number] #### [facility] [address] [place] [address] Glucose [Mass/Vol] 69 mg/dL Normal 55-199 [facility] Comment on above: Order Comment: offic e called only got one sst, office to put cmp label on sst tube and place other labels in bag to share. [id number] 02/13/2025 10:04:13 EDT Performed By: #### 2 [id number] #### [facility] [address] [place] [address] Potassium [Moles/Vol] 4.1 mmol/L Normal 3.5-5.3 [facility] Comment on above: Order Comment: offic e called only got one sst, office to put cmp label on sst tube and place other labels in bag to share. [id number] 02/13/2025 10:04:13 EDT Performed By: #### 2 [id number] #### [facility] [address] [place] [address] Protein [Mass/Vol] 7.1 g/dL Normal 6.0-7.8 [facility] Comment on above: Order Comment: offic e called only got one sst, office to put cmp label on sst tube and place other labels in bag to share. [id number] 02/13/2025 10:04:13 EDT Performed By: #### 2 [id number] #### [facility] [address] [place] [address] Sodium [Moles/Vol] 139 mmol/L Normal 135-145 [facility] Comment on above: Order Comment: offic e called only got one sst, office to put cmp label on sst tube and place other labels in bag to share. [id number] 02/13/2025 10:04:13 EDT Performed By: #### 2 [id number] #### [facility] [address] [place] [address] Urea nitrogen [Mass/Vol] 12 mg/dL Normal 5-21 [facility] Comment on above: Order Comment: offic e called only got one sst, office to put cmp label on sst tube and place other labels in bag to share. [id number] 02/13/2025 10:04:13 EDT Performed By: #### 2 [id number] #### [facility] [address] [place] [address] Urea nitrogen/Creatinine [Mass ratio] 20 No Units Normal 10-20 [facility] Comment on above: Order Comment: offic e called only got one sst, office to put cmp label on sst tube and place other labels in bag to share. [id number] 02/13/2025 10:04:13 EDT Performed By: #### 2 [id number] #### [facility] [address] [place] [address] Family Medicine Office/Clini c Noteon 02-13-2025 Family Medicine Office/Clinic Note Family Medicine Office/Clinic Note HPI Staff Hansa is a 24 year old female presenting for acute visit Onset: 2-3 months Pt c/o fatigue will sleep 12 hours a night and still feel tired, hard time opening her eye and getting up. concerned with nutritional deficiency has no appetite when eating she has been eating fruits/chicken/beef/veget aravind. Pt denies drinking any protein drinks or using protein powder. c/o of headaches when she wakes up lasting 1.5 hours and then comes back around 3:30-4pm last a few hours has been happening everyday. History of Present Illness pt present today c/o severe fatigue and nutritional deficiency. Review of Systems PHQ Score Initial Depression Screen Score: 0 SCORE Physical Exam Vitals & Measurements HR: 98(Peripheral) RR: 18 BP: 94/60 SpO2: 98% HT: 165.0 cm HT: 65 in WT: 48.8 kg WT: 107.585 lb BMI: 17.92 General: alert, no acute distress ENMT: oral mucosa moist, no pharyngeal erythema or exudate Cardiovascular: regular rate and rhythm, normal peripheral perfusion Respiratory: Lungs CTA, respirations non labored Extremities: no deformity, no trauma Neurological: oriented x 4, LOC appropriate for age, CN II-XII intact, motor strength equal & normal bilaterally, speech normal Assessment/Plan 1. Fatigue (R53.83: Other fatigue) pt c/o severe fatigue. will check labs today. discussed adding protein shakes daily. pt does have family history of diabetes. when attempting to draw labs her vein blew and she nearly passed out. became very pale and sweaty. she will return for a nurse visit to get the rest of the labs. encouraged her to drink plenty of water before she returns. will call her with those results. RTC 1 month Ordered: CBC w/ Auto Diff Comprehensive Metabolic Panel Ferritin Free T4 Iron Level T3 Free Thyroid Stimulating Hormone Vitamin B12 Level Vitamin D 25 Hydroxy 2. No appetite (R63.0: Anorexia) pt is no longer nauseated but just has no appetite. 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 she does not feel she was very helpful. Ordered: CBC w/ Auto Diff Comprehensive Metabolic Panel Ferritin Free T4 Iron Level T3 Free Thyroid Stimulating Hormone Vitamin B12 Level Vitamin D 25 Hydroxy 3. Underweight (R63.6: Underweight) pt is concerned that she has no appetite and can not gain weight. will check labs. encouraged small frequent meals. adding as much protein as possible. pt was provided a couple chocolate ensures to try. Ordered: CBC w/ Auto Diff Comprehensive Metabolic Panel Ferritin Free T4 Iron Level T3 Free Thyroid Stimulating Hormone Vitamin B12 Level Vitamin D 25 Hydroxy 4. Seasonal allergies (J30.2: Other seasonal allergic rhinitis) Kenalog injection given Ordered: CBC w/ Auto Diff Comprehensive Metabolic Panel Ferritin Free T4 Iron Level T3 Free Thyroid Stimulating Hormone Vitamin B12 Level Vitamin D 25 Hydroxy 5. BMI less than 19,adult (Z68.1: Body mass index [BMI] 19.9 or less, adult) BMI education Ordered: CBC w/ Auto Diff Comprehensive Metabolic Panel Ferritin Free T4 Iron Level T3 Free Thyroid Stimulating Hormone Vitamin B12 Level Vitamin D 25 Hydroxy 6. Non-smoker (Z78.9: Other specified health status) continue not smoking Ordered: CBC w/ Auto Diff Comprehensive Metabolic Panel Ferritin Free T4 Iron Level T3 Free Thyroid Stimulating Hormone Vitamin B12 Level Vitamin D 25 Hydroxy Orders: ondansetron, 4 mg = 1 tab(s), Oral, q8hr, PRN Nausea/Vomiting, # 30 tab(s), Refills(s) 1, Pharmacy: [facility]/pharmacy #[id number], 165, cm, 11/26/24 12:35:00 EST, Height/Length Dosing, 47.8, kg, 11/26/24 12:35:00 EST, Weight Dosing Follow-up No qualifying data available Problem List/Past Medical History Ongoing BMI less than 19,adult Bronchitis Chronic nausea Fatigue Heart burn History of IBS Left upper quadrant pain Nausea No appetite Otitis media Pelvic pain Pre-op exam Pre-op testing Seasonal allergies Shortness of breath Sinusitis Underweight Historical Depression Procedure/Surgical History Surgery. Medications albuterol 0.083% Inh Ingrid 3 mL, 2.5 mg= 3 mL, Inhalation, q6hr, PRN ondansetron 4 mg Dis Tab, See Instructions venlafaxine 37.5 mg Cap-ER, See Instructions Allergies No Known Allergies Social History Alcohol - Denies Alcohol Use, 07/22/2021 Never., 08/27/2024 Substance Abuse - Denies Substance Abuse, 07/22/2021 Never., 08/27/2024 Tobacco - No Risk, 12/21/2022 Never (less than 100 in lifetime) Tobacco Use:., 11/26/2024 Immunizations Vaccine Date Status meningococcal conjugate vaccine 06/06/2018 Recorded diphtheria/pertussis, acel/tetanus adult 05/28/2013 Recorded poliovirus vaccine, inactivated 05/28/2004 Recorded measles/mumps/rubella virus vaccine 05/28/2004 Recorded DTaP, unspecified formulation 05/28/2004 Recorded varicella virus vaccine 08/02/2001 Recorded DTaP, u (more content not included)... Normal [facility] Comment on above: Result Comment: Elec tronically Signed By: Tammi Braun\.br\Date and Time Signed: 02/13/25 10:05 EDT Ferritinon 02-13-2025 Ferritin [Mass/Vol] 7 ng/mL Low 11-307 [facility] Comment on above: Performed By: #### 2 [id number] #### [facility] [address] [place] [address] Free T4on 02-13-2025 Free T4 [Mass/Vol] 0.77 ng/dL Normal 0.58-1.64 [facility] Comment on above: Performed By: #### 2 [id number] #### [facility] [address] [place] [address] HEMATOLOGYOrdered By: SYSTEM SYSTEM on 02-13-2025 Basophils/100 WBC (Bld) 0.6 % Normal 0.0 - 2.0 % Remisol Heme Basophils/Leukocytes Auto (Bld) [Pure # fraction] 0.0 E9/L Normal 0.0 - 0.2 E9/L Remisol Heme Eosinophils (Bld) [#/Vol] 0.1 E9/L Normal 0.0 - 0.5 E9/L Remisol Heme Eosinophils/100 WBC (Bld) 1.0 % Normal 0.0 - 8.0 % Remisol Heme Erythrocyte distribution width (RBC) [Ratio] 14.0 % Normal 10.9 - 14.2 % Remisol Heme Hematocrit (Bld) [Volume fraction] 39.9 % Normal 34.0 - 46.0 % Remisol Heme Hemoglobin (Bld) [Mass/Vol] 13.3 g/dL Normal 12.0 - 16.0 gm/dL Remisol Heme Lymphocytes (Bld) [#/Vol] 1.8 E9/L Normal 1.0 - 4.0 E9/L Rem[facility] Heme Lymphocytes/100 WBC (Bld) 22.5 % Normal 14.0 - 50.0 % Remisol Heme MCH (RBC) [Entitic mass] 29.7 pg Normal 27.0 - 34.0 pg Remisol Heme MCHC (RBC) [Mass/Vol] 33.3 g/dL Normal 31.4 - 36.0 gm/dL Remisol Heme MCV (RBC) [Entitic vol] 89.2 fL Normal 80.0 - 100.0 fL Rem[facility] Heme Monocytes (Bld) [#/Vol] 0.4 E9/L Normal 0.2 - 1.0 E9/L Rem[facility] Heme Monocytes/100 WBC (Bld) 5.5 % Normal 4.0 - 14.0 % Rem[facility] Heme Neutrophils (Bld) [#/Vol] 5.6 E9/L Normal 2.0 - 7.5 E9/L Rem[facility] Heme Neutrophils/100 WBC (Bld) 70.4 % Normal 36.0 - 75.0 % [facility] Heme Platelet mean volume (Bld) [Entitic vol] 9.4 fL Normal 6.4 - 10.8 fL Remisol Heme Platelets (Bld) [#/Vol] 323.0 E9/L Normal 150.0 - 500.0 E9/L Rem[facility] Heme RBC (Bld) [#/Vol] 4.5 E12/L Normal 4.3 - 5.9 E12/L [facility] Heme WBC corrected for nucl RBC Auto (Bld) [#/Vol] 7.9 E9/L Normal 4.0 - 11.0 E9/L Rem[facility] Heme Ironon 02-13-2025 Iron [Mass/Vol] 116 microgram/dL Normal 35-153 [facility] Comment on above: Performed By: #### 2 [id number] #### [facility] [address] [place] [address] TSHon 02-13-2025 TSH Qn 1.91 m[IU]/L Normal 0.34-5.60 [facility] Comment on above: Performed By: #### 2 [id number] #### [facility] [address] [place] [address] Vit B12on 02-13-2025 Cobalamin (Vitamin B12) [Mass/Vol] 465 pg/mL Normal 50-1500 [facility] Comment on above: Performed By: #### 2 [id number] #### [facility] [address] [place] [address] Vitamin D 25 Hydroxyon 02-13 25-hydroxyvitamin D3 [Mass/Vol] 13.8 ng/mL Low 30.0-100.0 [facility] Comment on above: Performed By: #### 5 [id number] #### [facility] [address] [place] [address] eGFRon 02-13-2025 eGFR 128 mL/min/1.73 m2 Normal >=59 [facility] Comment on above: Performed By: #### 1 [id number] #### [facility] [address] [place] [address] Ambulatory Visit Summaryon 0 11-26-2024 Ambulatory Visit Summary Ambulatory Visit Summary HANSA MURCIA :2000 Visit Date:11/26/2024 Ambulatory Visit Instructions Your Diagnosis Nausea, Nausea Your Care Team Attending Physician - GERI MORA Primary Care Physician - Tammi Braun This Is Your Medications List albuterol (albuterol 0.083% Inh Ingrid 3 mL) ondansetron (Zofran ODT 4 mg Tab-Dis) ondansetron (ondansetron 4 mg Dis Tab) venlafaxine (venlafaxine 37.5 mg Cap-ER) Procedures Performed Surgery. Discharge Vitals Heart Rate (Peripheral) 76 Blood Pressure 108/68 Height 165 cm Height 65 in Weight 47.8 kg Weight 105.381 lb BMI 17.56 What to do next Scheduled Follow-Up Appointments Tuesday 8:40 AM EST With: Tammi Braun Where: [facility] [place] [address] [place] [address]- Medications What How Much When Why Instructions Changed ondansetron (ondansetron 4 mg Dis Tab) See instructions DISSOLVE 1 TABLET IN MOUTH 3 TIMES A DAY NEEDED FOR NAUSEA AND VOMITING Changed ondansetron (Zofran ODT 4 mg Tab-Dis) 1 Tablets By Mouth Every 8 hours as needed for Nausea/Vomiting Nausea Pickup at [facility]/pharmacy #[id number] Unchanged albuterol (albuterol 0.083% Inh Ingrid 3 mL) 3 Milliliter Inhalation Every 6 hours as needed for for wheezing Unchanged venlafaxine (venlafaxine 37.5 mg Cap-ER) See instructions TAKE 1 CAPSULE BY MOUTH EVERY DAY Pharmacy Information [facility]/pharmacy #[id number]: [address] [place], [place] [id number] [phone] Allergies No Known Allergies Problems Ongoing - Any problem that you are currently receiving treatment for. BMI less than 19,adult Bronchitis Chronic nausea Heart burn History of IBS Left upper quadrant pain Nausea Otitis media Pelvic pain Pre-op exam Pre-op testing Shortness of breath Sinusitis Underweight Historical - Any problem that you are no longer receiving treatment for. Depression Patient Survey You may receive a survey via text or e-mail asking about your office visit. Please share your experience with us by completing your survey. We appreciate your feedback and thank you for choosing us for your care. Normal [facility] Family Medicine Office/Clini c Noteon 11-26-2024 Family Medicine Office/Clinic Note Family Medicine Office/Clinic Note Chief Complaint ER f/u HPI Staff ER followup: Hospital:[facility] Visit date: 11/22/24 Symptoms the patient presented with:vomiting unable to hold anything down Testing Performed:CT Current concerns: pt states shes pretty light headed and dizzy History of Present Illness Hansa is a 24 year old female who presents for an acute visit. She was in the [place] ED on of last week for vomiting. She was dehydrated and unable to keep anything down. She got some fluids, and a CT of the abdomen showed mild enterocolitis. She was started on zofran and she is feeling somewhat better. She is back to work today. She is feeling a little dizzy. Her baseline BP runs low, and given she has not eaten a whole lot, I presume her blood sugars are a little low as well. She feels well enough to go back to work this afternoon. Review of Systems PHQ Score Initial Depression Screen Score: 0 SCORE Physical Exam Vitals & Measurements HR: 76(Peripheral) BP: 108/68 SpO2: 100% HT: 65 in HT: 165 cm WT: 47.8 kg WT: 105.381 lb BMI: 17.56 General: alert, no acute distress ENMT: TM's clear, oral mucosa moist, no pharyngeal erythema or exudate Cardiovascular: regular rate and rhythm, normal peripheral perfusion Respiratory: Lungs CTA, respirations non labored Extremities: no deformity, no trauma Neurological: oriented x 4, LOC appropriate for age, CN II-XII intact, motor strength equal & normal bilaterally, sensation equal & normal bilaterally, speech normal Assessment/Plan 1. Nausea, (R11.0: Nausea)Nausea refill zofran fu pcp in 1 week Ordered: ondansetron, 4 mg = 1 tab(s), Oral, q8hr, PRN Nausea/Vomiting, # 30 tab(s), Refills(s) 1, Pharmacy: [facility]/pharmacy #[id number], 165, cm, 11/26/24 12:35:00 EST, Height/Length Dosing, 47.8, kg, 11/26/24 12:35:00 EST, Weight Dosing Follow-up No qualifying data available Problem List/Past Medical History Ongoing BMI less than 19,adult Bronchitis Chronic nausea Heart burn History of IBS Left upper quadrant pain Nausea Otitis media Pelvic pain Pre-op exam Pre-op testing Shortness of breath Sinusitis Underweight Historical Depression Procedure/Surgical History Surgery. Medications albuterol 0.083% Inh Ingrid 3 mL, 2.5 mg= 3 mL, Inhalation, q6hr, PRN ondansetron 4 mg Dis Tab, See Instructions venlafaxine 37.5 mg Cap-ER, See Instructions Zofran ODT 4 mg Tab-Dis, 4 mg= 1 tab(s), Oral, q8hr, PRN, 1 refills Allergies No Known Allergies Social History Alcohol - Denies Alcohol Use, 07/22/2021 Never., 08/27/2024 Substance Abuse - Denies Substance Abuse, 07/22/2021 Never., 08/27/2024 Tobacco - No Risk, 12/21/2022 Never (less than 100 in lifetime) Tobacco Use:., 11/26/2024 Immunizations Vaccine Date Status meningococcal conjugate vaccine 06/06/2018 Recorded diphtheria/pertussis, acel/tetanus adult 05/28/2013 Recorded poliovirus vaccine, inactivated 05/28/2004 Recorded measles/mumps/rubella virus vaccine 05/28/2004 Recorded DTaP, unspecified formulation 05/28/2004 Recorded varicella virus vaccine 08/02/2001 Recorded DTaP, unspecified formulation 08/02/2001 Recorded poliovirus vaccine, inactivated 05/03/2001 Recorded measles/mumps/rubella virus vaccine 05/03/2001 Recorded DTaP, unspecified formulation 2000 Recorded poliovirus vaccine, inactivated 2000 Recorded DTaP, unspecified formulation 2000 Recorded poliovirus vaccine, inactivated 2000 Recorded DTaP, unspecified formulation 2000 Recorded [facility] Comment on above: Result Comment: Elec tronically Signed By: AVIS ESPINO, GERI\.br\Date and Time Signed: 11/26/24 13:40 EST Provider Letteron 11-26-2024 Provider Letter Provider Letter November 26, 2024 HANSA M[address]CIA [address] [place] [address] : 2000 To Whom It May Concern, Please excuse above patient from work. Date of Illness: From: 11/26/24 May Return to Work On: 11/26/24 Restrictions: none Comments: none Sincerely, Family Medicine [address] [place] [address] [facility] Ambulatory Visit Summaryon 1 11-14-2023 Ambulatory Visit Summary Ambulatory Visit Summary HANSA MURCIA :2000 Visit Date:09/14/2024 Ambulatory Visit Instructions Your Diagnosis Acute pharyngitis Acute otitis media, right Your Care Team Attending Physician - Derrek ESPINO, Carole Primary Care Physician - Tammi Braun This Is Your Medications List albuterol (albuterol 0.083% Inh Ingrid 3 mL) ondansetron (ondansetron 4 mg Dis Tab) venlafaxine (venlafaxine 37.5 mg Cap-ER) Procedures Performed Surgery. Discharge Vitals Temperature (Oral) 37 ???C Heart Rate (Peripheral) 99 Blood Pressure 110/60 Height 165.5 cm Height 65 in Weight 49.9 kg Weight 110.011 lb BMI 18.22 Medications What How Much When Instructions Unchanged albuterol (albuterol 0.083% Inh Ingrid 3 mL) 3 Milliliter Inhalation Every 6 hours as needed for for wheezing Unchanged ondansetron (ondansetron 4 mg Dis Tab) See instructions DISSOLVE 1 TABLET IN MOUTH 3 TIMES A DAY NEEDED FOR NAUSEA AND VOMITING Unchanged venlafaxine (venlafaxine 37.5 mg Cap-ER) See instructions TAKE 1 CAPSULE BY MOUTH EVERY DAY Allergies No Known Allergies Problems Ongoing - Any problem that you are currently receiving treatment for. BMI less than 19,adult Bronchitis Chronic nausea Heart burn History of IBS Left upper quadrant pain Nausea Otitis media Pelvic pain Pre-op exam Pre-op testing Shortness of breath Sinusitis Underweight Historical - Any problem that you are no longer receiving treatment for. Depression Patient Survey You may receive a survey via text or e-mail asking about your office visit. Please share your experience with us by completing your survey. We appreciate your feedback and thank you for choosing us for your care. Ron [facility] Family Medicine Office/Clini c Noteon 09-14-2024 Family Medicine Office/Clinic Note Family Medicine Office/Clinic Note Chief Complaint sore throat HPI Staff complaints of sore throat Onset: last night Characteristics: body aches, cough OTC tried: none History of Present Illness I have reviewed and verified the staff HPI to be accurate for this encounter. Portions of this record have been created with voice recognition software. Occasional wrong-word or ???[id number]??? substitutions may have occurred due to the inherent limitations of voice recognition software. 24-year-old female presents with complaints of sore throat and left ear congestion for the last couple of days. Patient reports that her had similar symptoms and was found to have an ear infection. She states she has sore throat she rates a 5 out of 10 that hurts with swallowing along with headache and nausea. She also reports decreased hearing out of her right ear with some mild discomfort. She denies any fever or chills. She denies any cough. She has not used any medications [id number] for her symptoms. Review of Systems PHQ Score Initial Depression Screen Score: 0 SCORE ROS negative unless otherwise stated in HPI. Physical Exam Vitals & Measurements T: 37 ???C(Oral) HR: 99(Peripheral) BP: 110/60 SpO2: 98% HT: 65 in HT: 165.5 cm WT: 49.9 kg WT: 110.011 lb BMI: 18.22 General: Well developed, well nourished, in no acute distress Eyes: not assessed Ears: No deformity or lesion of external ear. Right ear tympanic membrane intact with yellowish fluid noted behind the ear not bulging. Left ear with clear fluid tympanic membrane intact no bulging no erythema. Hearing grossly normal to conversational speech Nose: mild nasal mucosa inflammation and edema Mouth: Mucous membranes moist. Normal oropharynx, and posterior pharynx erythematous without lesions or exudates. Tongue normal Neck: no adenopathy Lungs: clear to auscultation throughout, no wheezing, no rales. No respiratory distress respiratory rate 16 Cardio: regular rate and rhythm, no murmur Abdomen: not assessed Musculoskeletal: not assessed Extremity: not assessed Neurologic: Grossly normal Skin: not assessed Mental Status: Alert and oriented x3. Normal mood and affect Assessment/Plan Based on history reporting headache nausea and sore throat we will get a rapid strep in the office today. Rapid strep was negative and we will send for strep screen culture for confirmation. Based on presentation with right ear having yellowish fluid noted behind the ear and ear discomfort we are going to treat for an acute otitis media with amoxicillin 875 mg twice daily x 5 days. I explained to patient that if her strep happens to come back positive we will need to extend her course of medication for a full 10 days of amoxicillin. Instructed patient to follow instructions on her current amoxicillin and we will let her know if there is any changes in her plan. Patient verbalized understanding and agreement with this plan. 1. Acute otitis media, right (H66.91: Otitis media, unspecified, right ear) Will treat with amoxicillin 875 mg twice daily x 5 days. Finish course. Fluids/rest, PRN tylenol/ibuprofen for pain and/or fever encouraged. Discussed other cold symptoms remain viral in nature- typical duration 7-14 days. May use [id number] multisymptom relief such as something for sinus congestion and sore throat per package instructions. Encouraged to follow up with PCP for recheck in about 5 days to ensure infection resolving, especially if symptoms worsening or fevers. Patient and/or parent verbalized understanding of treatment plan. Ordered: amoxicillin, 875 mg = 1 tab(s), Oral, BID, X 5 day(s), # 10 tab(s), Refills(s) 0, Pharmacy: [facility]/pharmacy #[id number], 165.5, cm, 09/14/24 12:45:00 EST, Height/Length Dosing, 49.9, kg, 09/14/24 12:45:00 EST, Weight Dosing 2. Acute pharyngitis (J02.9: Acute pharyngitis, unspecified) Rapid strep -. Given exam will send strep cx to confirm. No news is good news, if you do not hear from us, strep culture was Negative. If any GAS growth, will rx appropriate antibiotic and notify you. Discussed otherwise consistent with viral illness, typical duration 7-14 days. Fluids/rest, PRN tylenol/ibuprofen for pain and/or fever. May use salt water gargles and otc lozenges for pain. Fu with PCP if cx negative and not improving over next 3-5 days. Seek medical attention immediately for any increased difficulty swallowing, opening mouth, or difficulty managing oral secretions. Patient and/or parent verbalized understanding of tx plan. Ordered: amoxicillin, 875 mg = 1 tab(s), Oral, BID, X 5 day(s), # 10 tab(s), Refills(s) 0, Pharmacy: [facility]/pharmacy #[id number], 165.5, cm, 09/14/24 12:45:00 EST, Height/Length Dosing, 49.9, kg, 09/14/24 12:45:00 EST, Weight Dosing Rapid Strep POC [id number] Strep Screen Culture Follow-up With When Contact Information Tammi Braun, FAM, MED Additional Instructions: Patient Education Otitis Media, Adult, Sbhh-ev-Tres Pharyngi (more content not included)... Normal [facility] Comment on above: Result Comment: Elec tronically Signed By: Derrek ESPINO, Carole\.br\Date and Time Signed: 09/14/24 13:41 EST Provider Letteron 09-14-2024 Provider Letter Provider Letter September 14, 2024 [address]CIA [address] [place] [id number] : 2000 To Whom It May Concern, Please excuse above patient from work. Date of Illness: From: 09/14/2024 To: 09/15/2024 May Return to Work On:09/15/2024 Sincerely, [facility] [address] [place] [address], [place] [address] [facility] Ambulatory Visit Summaryon 1 10-27-2023 Ambulatory Visit Summary Ambulatory Visit Summary HANSA MURCIA :2000 Visit Date:08/27/2024 Ambulatory Visit Instructions Your Diagnosis Non-smoker Underweight with body mass index (BMI) less than 18.5 Body mass index [BMI] 19.9 or less, adult Your Care Team Attending Physician - Tammi Braun Primary Care Physician - Tammi Braun This Is Your Medications List albuterol (albuterol 0.083% Inh Ingrid 3 mL) ondansetron (ondansetron 4 mg Dis Tab) venlafaxine (venlafaxine 37.5 mg Cap-ER) Procedures Performed Surgery. Discharge Vitals Temperature (Temporal Artery) 36.6 ???C Heart Rate (Peripheral) 76 Respiratory Rate 20 Blood Pressure 112/68 Height 165.5 cm Height 65 in Weight 49.9 kg Weight 109.78 lb BMI 18.22 Medications What How Much When Instructions Unchanged albuterol (albuterol 0.083% Inh Ingrid 3 mL) 3 Milliliter Inhalation Every 6 hours as needed for for wheezing Unchanged ondansetron (ondansetron 4 mg Dis Tab) See instructions DISSOLVE 1 TABLET IN MOUTH 3 TIMES A DAY NEEDED FOR NAUSEA AND VOMITING Unchanged venlafaxine (venlafaxine 37.5 mg Cap-ER) See instructions TAKE 1 CAPSULE BY MOUTH EVERY DAY Allergies No Known Allergies Problems Ongoing - Any problem that you are currently receiving treatment for. BMI less than 19,adult Bronchitis Chronic nausea Heart burn History of IBS Left upper quadrant pain Nausea Otitis media Pelvic pain Pre-op exam Pre-op testing Sinusitis Underweight Historical - Any problem that you are no longer receiving treatment for. Depression Patient Survey You may receive a survey via text or e-mail asking about your office visit. Please share your experience with us by completing your survey. We appreciate your feedback and thank you for choosing us for your care. Normal [facility] Family Medicine Office/Clini c Noteon 08-27-2024 Family Medicine Office/Clinic Note Family Medicine Office/Clinic Note HPI Staff Pt presents today for ER follow up [place] [facility] [place]: [place]15 Symptoms the patient presented with: SOB & Chest pain Current concerns: Tx'd with albuterol they told her it was an asthma... she does feel the albuterol is helping her a lot Still has trouble breathing sometimes History of Present Illness pt presents today for ER follow up. for SOB and chest pain Review of Systems PHQ Score Initial Depression Screen Score: 0 SCORE Physical Exam Vitals & Measurements T: 36.6 ???C(Temporal Artery) HR: 76(Peripheral) RR: 20 BP: 112/68 SpO2: 98% HT: 65 in HT: 165.5 cm WT: 49.9 kg WT: 109.78 lb BMI: 18.22 General: alert, no acute distress ENMT: oral mucosa moist, no pharyngeal erythema or exudate Cardiovascular: regular rate and rhythm, normal peripheral perfusion Respiratory: Lungs CTA, respirations non labored Extremities: no deformity, no trauma Neurological: oriented x 4, LOC appropriate for age, CN II-XII intact, motor strength equal & normal bilaterally, speech normal Assessment/Plan 1. Shortness of breath (R06.02: Shortness of breath) pt went to ER with SOB and chest pain. pt denies chest pain. labs and chest x ray were normal. unable to obtain ER notes pt states they told me I have asthma. she is using albuterol inhaler. pt states she feels her allergies are flared up. she started taking harpal the other day. offered kenalog injection or medrol dose pack but she refused at this time. RTC as needed 2. Non-smoker (Z78.9: Other specified health status) continue not smoking 3. Underweight with body mass index (BMI) less than 18.5 (R63.6: Underweight) Body mass index [BMI] 19.9 or less, adult (Z68.1: Body mass index [BMI] 19.9 or less, adult) BMI education Follow-up No qualifying data available Problem List/Past Medical History Ongoing BMI less than 19,adult Bronchitis Chronic nausea Heart burn History of IBS Left upper quadrant pain Nausea Otitis media Pelvic pain Pre-op exam Pre-op testing Shortness of breath Sinusitis Underweight Historical Depression Procedure/Surgical History Surgery. Medications albuterol 0.083% Inh Ingrid 3 mL, 2.5 mg= 3 mL, Inhalation, q6hr, PRN ondansetron 4 mg Dis Tab, See Instructions venlafaxine 37.5 mg Cap-ER, See Instructions Allergies No Known Allergies Social History Alcohol - Denies Alcohol Use, 07/22/2021 Never., 08/27/2024 Substance Abuse - Denies Substance Abuse, 07/22/2021 Never., 08/27/2024 Tobacco - No Risk, 12/21/2022 Never (less than 100 in lifetime) Tobacco Use:., 08/27/2024 Immunizations Vaccine Date Status meningococcal conjugate vaccine 06/06/2018 Recorded diphtheria/pertussis, acel/tetanus adult 05/28/2013 Recorded poliovirus vaccine, inactivated 05/28/2004 Recorded measles/mumps/rubella virus vaccine 05/28/2004 Recorded DTaP, unspecified formulation 05/28/2004 Recorded varicella virus vaccine 08/02/2001 Recorded DTaP, unspecified formulation 08/02/2001 Recorded poliovirus vaccine, inactivated 05/03/2001 Recorded measles/mumps/rubella virus vaccine 05/03/2001 Recorded DTaP, unspecified formulation 2000 Recorded poliovirus vaccine, inactivated 2000 Recorded DTaP, unspecified formulation 2000 Recorded poliovirus vaccine, inactivated 2000 Recorded DTaP, unspecified formulation 2000 Recorded Normal [facility] Comment on above: Result Comment: Elec tronically Signed By: Ashok RIDLEY, Tammi Herr\.br\Date and Time Signed: 08/27/24 09:29 EST Automated basophil %Ordered By: Thien Olea on 08-15-2024 Basophils/100 WBC (Bld) 0.6 % Normal . [facility] Comment on above: Performed By: #### H S TROP, CK, BMP, DDIMER, CBC, BNP #### [address] Automated basophil countOrde red By: Thien Olea on 08-15-2024 Basophils (Bld) [#/Vol] 0.0 10*3/uL Normal 0.0-0.2 [facility] Comment on above: Result Comment: PERF ORMED BY: [place] [address] PATHOLOGIST CLINICAL SERVICES SPECIALIST SULTANA ROBBINS M.D. Performed By: #### H S TROP, CK, BMP, DDIMER, CBC, BNP #### [address] Automated blood monocyte cou ntOrdered By: Thien Olea on 08-15-2024 Monocytes (Bld) [#/Vol] 0.5 10*3/uL Normal 0.0-0.8 [facility] Comment on above: Performed By: #### H S TROP, CK, BMP, DDIMER, CBC, BNP #### [address] Automated eosinophil %Ordere d By: Thien Olea on 08-15-2024 Eosinophils/100 WBC (Bld) 1.0 % Normal . [facility] Comment on above: Performed By: #### H S TROP, CK, BMP, DDIMER, CBC, BNP #### [address] Automated eosinophil countOr dered By: Thien Olea on 08-15-2024 Eosinophils (Bld) [#/Vol] 0.1 10*3/uL Normal 0.0-0.45 [facility] Comment on above: Performed By: #### H S TROP, CK, BMP, DDIMER, CBC, BNP #### [address] Automated monocyte %Ordered By: Thien Olea on 08-15-2024 Monocytes/100 WBC (Bld) 8.1 % Normal . [facility] Comment on above: Performed By: #### H S TROP, CK, BMP, DDIMER, CBC, BNP #### [address] Automated neutrophil %Ordere d By: Thien Olea on 08-15-2024 Neutrophils/100 WBC (Bld) 56.6 % Normal . [facility] Comment on above: Performed By: #### H S TROP, CK, BMP, DDIMER, CBC, BNP #### [address] BNP ser/plasOrdered By: Fabiola Olea on 08-15-2024 Natriuretic peptide B (Bld) [Mass/Vol] 17.0 pg/mL Normal 5-100 [facility] Comment on above: Result Comment: PERF ORMED BY: [place] [address] PATHOLOGIST CLINICAL SERVICES SPECIALIST SULTANA ROBBINS M.D. Performed By: #### H S TROP, CK, BMP, DDIMER, CBC, BNP #### [address] Bacteria [Presence] in Urine by AutomatedOrdered By: Thien Olea on 08-15-2024 Bacteria Auto Ql (U) 1+ [HPF] High None Seen [facility] Basic Metabolic Panelon 07-25 Creatinine Clr Calc Pharmacy 98.01 Normal [facility] Comment on above: Result Comment: PERF ORMED BY: [place] [address] PATHOLOGIST CLINICAL SERVICES SPECIALIST SULTANA ROBBINS M.D. Performed By: #### H S TROP, CK, BMP, DDIMER, CBC, BNP #### [address] GFR/1.73 sq M.predicted MDRD (S/P/Bld) [Vol rate/Area] mL/min/{1.73_m2} Normal [facility] Comment on above: Performed By: #### H S TROP, CK, BMP, DDIMER, CBC, BNP #### [address] Bilirubin Test strip Ql (U)O rdered By: Thien Olea on 08-15-2024 Bilirubin Ql (U) Negative Negative [facility] Calcium [Mass/volume] in Ser um or PlasmaOrdered By: Thien Buenosebas on 08-15-2024 Calcium [Mass/Vol] 9.4 mg/dL Normal 8.6-10.3 [facility] Comment on above: Performed By: #### H S TROP, CK, BMP, DDIMER, CBC, BNP #### [address] Carbon dioxide, total [Moles /volume] in Serum or PlasmaOrdered By: Thien Emmie on 08-15-2024 CO2 [Moles/Vol] 26.5 mmol/L Normal 21.0-31.0 [facility] Comment on above: Performed By: #### H S TROP, CK, BMP, DDIMER, CBC, BNP #### [place] [address] [place] Chloride [Moles/volume] in S marcela or PlasmaOrdered By: Thien Emmie on 08-15-2024 Chloride [Moles/Vol] 107 mmol/L Normal 98-107 [facility] Comment on above: Performed By: #### H S TROP, CK, BMP, DDIMER, CBC, BNP #### [address] Color of Urine by AutoOrdere d By: Thiencheikh Olea on 08-15-2024 Color (U) Yellow Normal Yellow [facility] Comment on above: Order Comment: Name Collection Type:: Clean-Voided Midstream Performed By: #### C UU, ADDONUAPLUS, UHCG #### [address] Complete Blood Count Auto Di ffon 08-15-2024 Mean Corpuscular HGB Conc 33.8 g/dL Normal 32.0-35.0 [facility] Comment on above: Performed By: #### H S TROP, CK, BMP, DDIMER, CBC, BNP #### [place] [address] [place] Monocytes/100 WBC (Bld) 17.85 % Normal 0.00-20.00 [facility] Comment on above: Performed By: #### H S TROP, CK, BMP, DDIMER, CBC, BNP #### [address] NRBC% 0.2 /100{WBC} Normal 0-0.5 [facility] Comment on above: Performed By: #### H S TROP, CK, BMP, DDIMER, CBC, BNP #### [address] Creatine kinase [Enzymatic a ctivity/volume] in Serum or PlasmaOrdered By: Thien Olea on 08-15-2024 CK [Catalytic activity/Vol] 52 U/L Normal 30-223 [facility] Comment on above: Performed By: #### H S TROP, CK, BMP, DDIMER, CBC, BNP #### [address] Creatinine [Mass/volume] in Serum or PlasmaOrdered By: Thien Olea on 08-15-2024 Creatinine [Mass/Vol] 0.70 mg/dL Normal 0.60-1.20 [facility] Comment on above: Performed By: #### H S TROP, CK, BMP, DDIMER, CBC, BNP #### [address] D-Dimer High Sensitivityon 1 D-Dimer High Sensitivity < 200 Normal 0-243 [facility] Comment on above: Result Comment: The reference range for D-dimer is <243 ng/mL D-dimer units. D-dimer results must be used in conjunction with a clinical pretest probability (PTP) assessment model for deep vein thrombosis (DVT) and pulmonary embolism (PE). Results <230 ng/mL d-dimer units can be used as a negative predictor in patients with low or moderate probability for DVT/PE. Results above the exclusion threshold of 230 ng/ml D-dimer units for DVT/PE may indicate the need for further diagnostic testing. D-Dimer can be increased in hospitalized patients due to co-morbid conditions. A hematocrit value greater than 55% may lead to inaccurate results in coagulation testing. Patients having hematocrit values >55% require a special collection tube for coagulation studies. Please contact the laboratory at [phone] for redraw instructions. PERFORMED BY: [place] [address] PATHOLOGIST CLINICAL SERVICES SPECIALIST SULTANA ROBBINS M.D. Performed By: #### H S TROP, CK, BMP, DDIMER, CBC, BNP #### [place] [address] [place] Dipstick and Microscopicon 1 Bacteria,Urine 1+ High None Seen [facility] Comment on above: Order Comment: Name Collection Type:: Clean-Voided Midstream Performed By: #### C UU, ADDONUAPLUS, UHCG #### [place] [address] [place] Bilirubin,Urine Negative Normal Negative [facility] Comment on above: Order Comment: Name Collection Type:: Clean-Voided Midstream Performed By: #### C UU, ADDONUAPLUS, UHCG #### [place] [address] [place] Glucose Ql (U) Normal Normal Normal [facility] Comment on above: Order Comment: Name Collection Type:: Clean-Voided Midstream Performed By: #### C UU, ADDONUAPLUS, UHCG #### [place] [address] [place] Hyaline Casts,Urine None Normal 0-8 [facility] Comment on above: Order Comment: Name Collection Type:: Clean-Voided Midstream Performed By: #### C UU, ADDONUAPLUS, UHCG #### [place] [address] [place] Mucus,Urine 4+ Critically abnormal [facility] Comment on above: Order Comment: Name Collection Type:: Clean-Voided Midstream Performed By: #### C UU, ADDONUAPLUS, UHCG #### [place] [address] [place] Nitrite,Urine Negative Normal Negative [facility] Comment on above: Order Comment: Name Collection Type:: Clean-Voided Midstream Performed By: #### C UU, ADDONUAPLUS, UHCG #### [address] Occult Blood,Urine Negative Normal Negative [facility] Comment on above: Order Comment: Name Collection Type:: Clean-Voided Midstream Performed By: #### C UU, ADDONUAPLUS, UHCG #### [address] Protein,Urine Trace High Negative [facility] Comment on above: Order Comment: Name Collection Type:: Clean-Voided Midstream Performed By: #### C UU, ADDONUAPLUS, UHCG #### [address] RBC,Urine 1-2 Normal 0-4 [facility] Comment on above: Order Comment: Name Collection Type:: Clean-Voided Midstream Performed By: #### C UU, ADDONUAPLUS, UHCG #### [address] Specificy [place],Urine 1.031 High 1.001-1.03 0 [facility] Comment on above: Order Comment: Name Collection Type:: Clean-Voided Midstream Performed By: #### C UU, ADDONUAPLUS, UHCG #### [place] [address] [place] Squamous Epithelial Cell,Urine 5-9 High 0-2 [facility] Comment on above: Order Comment: Name Collection Type:: Clean-Voided Midstream Performed By: #### C UU, ADDONUAPLUS, UHCG #### [place] [address] [place] Urobilinogen,Urine Normal Normal Normal [facility] Comment on above: Order Comment: Name Collection Type:: Clean-Voided Midstream Performed By: #### C UU, ADDONUAPLUS, UHCG #### [place] [address] [place] WBC,Urine 10-19 High 0-4 [facility] Comment on above: Order Comment: Name Collection Type:: Clean-Voided Midstream Performed By: #### C UVERONIQUE Yepez, CG #### [facility] [address] ECG 12 lead ECGon 08-15-2024 ECG 12 lead ECG [facility] [place] [address] [place] [address] Electrocardiograph Report Signed Patient: Hansa Murcia MR#: [id number] 4 : 2000 Acct:[id number] Age/Sex: 24 / F ADM Date: 08/15/24 Loc: ER Room: Type: [facility] ER Attending Dr: Ordering Provider: Thien Olea DO Date of Service: 08/15/24 ECG/ECG 12 lead ECG: Shortness of Breath/Dyspnea Copies to: Test Reason : Blood Pressure : 114/58 mmHG Vent. Rate : 80 BPM Atrial Rate : 80 BPM P-R Int : 114 ms QRS Dur : 78 ms QT Int : 376 ms P-R-T Axes : 55 75 63 degrees QTcB Int : 433 ms Normal sinus rhythm Normal ECG No previous ECGs available Confirmed by THIEN OLEA DO ([id number]) on 08/15/2024 7:17:15 PM Referred By: Electronically Signed By: THIEN OLEA DO Transcribed By: MUS Signed By Thien Olea DO 1916 Normal [facility] Epithelial cells.squamous [# /area] in Urine sediment by Automated countOrdered By: Thien Olea on 08-15-2024 Epithelial cells.squamous Auto (Urine sed) [#/Area] 5-9 [HPF] High 0-2 [facility] Erythrocyte distribution wid th [Ratio] by Automated countOrdered By: Thien Olea on 08-15-2024 Erythrocyte distribution width (RBC) [Ratio] 13.5 % Normal 11.9-15.3 [facility] Comment on above: Performed By: #### H S TROP, CK, BMP, DDIMER, CBC, BNP #### [facility] [address] [place], [place] [id number] [facility] Erythrocytes [#/area] in Uri ne sediment by Automated countOrdered By: Thien Olea on 08-15-2024 RBC Auto (Urine sed) [#/Area] 1-2 [HPF] 0-4 [facility] Erythrocytes [#/volume] in B lood by Automated countOrdered By: Thien Olea on 08-15-2024 RBC (Bld) [#/Vol] 4.63 10*6/uL Normal 3.60-5.00 [facility] Comment on above: Performed By: #### H S TROP, CK, BMP, DDIMER, CBC, BNP #### [facility] [address] [place] [id number] [facility] Fibrin D-dimer [Presence] in Platelet poor plasma by Latex agglutinationOrdered By: Thien Olea on 08-15-2024 Fibrin D-dimer LA Ql (PPP) < 200 ng/mL 0-243 [facility] Comment on above: The reference range for D-dimer is <243 ng/mL D-dimer units.D-dimer results must be used in conjunction with a clinicalpretest probability (PTP) assessment model for deep veinthrombosis (DVT) and pulmonary embolism (PE). Results <230ng/mL d-dimer units can be used as a negative predictor inpatients with low or moderate probability for DVT/PE.Results above the exclusion threshold of 230 ng/ml D-dimerunits for DVT/PE may indicate the need for furtherdiagnostic testing.D-Dimer can be increased in hospitalized patients due toco-morbid conditions.A hematocrit value greater than 55% may lead to inaccurate results in coagulation testing. Patients having hematocrit values >55% require a special collection tube for coagulation studies. Please contact the laboratory at [phone] for redraw instructions. Glucose [Mass/volume] in Ser um or PlasmaOrdered By: Thien Olea on 08-15-2024 Glucose [Mass/Vol] 84 mg/dL Normal 70-100 [facility] Comment on above: ADA recommended refe rence rangeRandom Glucose Reference Range is dependent on time and content of last meal. Glucose of more than 200 mg/dL in a nonstressed, ambulatory subject supports the diagnosis of Diabetes Mellitus. Result Comment: [place] Glucose Reference Range is dependent on time and content of last meal. Glucose of more than 200 mg/dL in a nonstressed, ambulatory subject supports the diagnosis of Diabetes Mellitus. ADA recommended reference range Performed By: #### H S TROP, CK, BMP, DDIMER, CBC, BNP #### [address] Glucose [Mass/volume] in Uri ne by Test stripOrdered By: Thien Olea on 08-15-2024 Glucose Test strip (U) [Mass/Vol] Normal mg/dL Normal [facility] HCG ( test) [place].rapi d Ql (U)Ordered By: Thien Olea on 08-15-2024 HCG ( test) Ql (U) Negative [facility] HCG,Urineon 08-15-2024 Beta HCG ( test) Ql (U) Negative Normal [facility] Comment on above: Order Comment: Name Collection Type:: Clean-Voided Midstream Result Comment: PERF ORMED BY: [place] [address] PATHOLOGIST CLINICAL SERVICES SPECIALIST SULTANA ROBBINS M.D. Performed By: #### C VERONIQUE GRACE, [facility] #### [address] Hematocrit [Volume Fraction] of Blood by Automated countOrdered By: Thien Olea on 08-15-2024 Hematocrit (Bld) [Volume fraction] 40.6 % Normal 34.0-46.4 [facility] Comment on above: Performed By: #### H S TROP, CK, BMP, DDIMER, CBC, BNP #### [address] Hemoglobin Test strip Ql (U) Ordered By: Thien Olea on 08-15-2024 Hemoglobin Ql (U) Negative Negative [facility] Hemoglobin [Mass/volume] in BloodOrdered By: Thien Olea on 08-15-2024 Hemoglobin (Bld) [Mass/Vol] 13.7 g/dL Normal 11.8-15.4 [facility] Comment on above: Performed By: #### H S TROP, CK, BMP, DDIMER, CBC, BNP #### [facility] [address] [place] [address] [place] Hyaline casts [#/area] in Ur ine sediment by Automated countOrdered By: Thien Olea on 08-15-2024 Hyaline casts Auto (Urine sed) [#/Area] None [LPF] 0-8 [facility] Ketones [Presence] in Urine by Test stripOrdered By: Thien Olea on 08-15-2024 Ketones Ql (U) Negative Normal Negative [facility] Comment on above: Order Comment: Name Collection Type:: Clean-Voided Midstream Performed By: #### C UU, ADDONUAPLUS, UHCG #### [facility] [address] Leukocyte esterase [Presence ] in Urine by Test stripOrdered By: Thien Olea on 08-15-2024 Leukocyte esterase Test strip Ql (U) 4+ High Negative [facility] Comment on above: Order Comment: Name Collection Type:: Clean-Voided Midstream Performed By: #### C UU, ADDONUAPLUS, UHCG #### [facility] [address] [place] [address] [place] Leukocytes [#/area] in Urine sediment by Automated countOrdered By: Thien Olea on 08-15-2024 WBC Auto (Urine sed) [#/Area] 10-19 [HPF] High 0-4 [facility] Leukocytes [#/volume] correc ten for nucleated erythrocytes in Blood by Automated counOrdered By: Thien Olea on 08-15-2024 WBC corrected for nucl RBC Auto (Bld) [#/Vol] 5.8 10*3/uL 3.8-11.6 [facility] Leukocytes [#/volume] in Blo od by Automated countOrdered By: Thien Olea on 08-15-2024 WBC (Bld) [#/Vol] 5.8 10*3/uL Normal 3.8-11.6 [facility] Comment on above: Performed By: #### H S TROP, CK, BMP, DDIMER, CBC, BNP #### [facility] [address] Lymphocytes [#/volume] in Bl ood by Automated countOrdered By: Thien Olea on 08-15-2024 Lymphocytes (Bld) [#/Vol] 2.0 10*3/uL Normal 1.00-4.8 [facility] Comment on above: Performed By: #### H S TROP, CK, BMP, DDIMER, CBC, BNP #### [facility] [address] [place] [address] Lymphocytes/100 leukocytes i n Blood by Automated countOrdered By: Thien Olea on 08-15-2024 Lymphocytes/100 WBC (Bld) 33.7 % Normal . [facility] Comment on above: Performed By: #### H S TROP, CK, BMP, DDIMER, CBC, BNP #### [address] MCH [Entitic mass] by Automa ten countOrdered By: Thien Olea on 08-15-2024 MCH (RBC) [Entitic mass] 29.6 pg Normal 24.7-34.3 [facility] Comment on above: Performed By: #### H S TROP, CK, BMP, DDIMER, CBC, BNP #### [address] MCHC Auto (RBC) [Mass/Vol]Or dered By: Thien Olea on 08-15-2024 MCHC (RBC) [Mass/Vol] 33.8 g/dL 32.0-35.0 [facility] MCV [Entitic volume] by Auto mated countOrdered By: Thien Olea on 08-15-2024 MCV (RBC) [Entitic vol] 87.6 fL Normal 80-100 [facility] Comment on above: Performed By: #### H S TROP, CK, BMP, DDIMER, CBC, BNP #### [address] Monocyte distribution width [Entitic volume] in Blood by AutomatedOrdered By: Thien Olea on 08-15-2024 Monocyte distribution width Auto (Bld) [Entitic vol] 17.85 % 0.00-20.00 [facility] Mucus [Presence] in Urine by AutomatedOrdered By: Thien Emmie on 08-15-2024 Mucus Auto Ql (U) 4+ [LPF] Abnormal [facility] Neutrophils [#/volume] in Bl ood by Automated countOrdered By: Thien Olea on 08-15-2024 Neutrophils (Bld) [#/Vol] 3.3 10*3/uL Normal 1.8-7.7 [facility] Comment on above: Performed By: #### H S TROP, CK, BMP, DDIMER, CBC, BNP #### [facility] [address] Nitrite Test strip Ql (U)Ord ered By: Thien Olea on 08-15-2024 Nitrite Ql (U) Negative Negative [facility] No Panel InformationOrdered By: Thien Olea on 08-15-2024 Estimated GFR (CKD-EPI) > 60.0 mL/Min [facility] Creatinine Clearance (Chem 98.01 [facility] Nucleated erythrocytes [Pres ence] in Blood by Automated countOrdered By: Thien Olea on 08-15-2024 Nucleated RBC Auto Ql (Bld) 0.2 /100{WBC} 0-0.5 [facility] Platelet mean volume [Entiti c volume] in Blood by Automated countOrdered By: Thien lOea on 08-15-2024 Platelet mean volume (Bld) [Entitic vol] 8.7 fL Normal 6.3-10.7 [facility] Comment on above: Performed By: #### H S TROP, CK, BMP, DDIMER, CBC, BNP #### [facility] [address] [place] [address] [place] Platelets [#/volume] in Bloo d by Automated countOrdered By: Thien Olea on 08-15-2024 Platelets (Bld) [#/Vol] 256 10*3/uL Normal 150-450 [facility] Comment on above: Performed By: #### H S TROP, CK, BMP, DDIMER, CBC, BNP #### [facility] [address] [place] [address] [place] Potassium [Moles/volume] in Serum or PlasmaOrdered By: Thien Buenosebas on 08-15-2024 Potassium [Moles/Vol] 3.7 mmol/L Normal 3.5-5.1 [facility] Comment on above: Performed By: #### H S TROP, CK, BMP, DDIMER, CBC, BNP #### [address] Protein Test strip (U) [Mass /Vol]Ordered By: Thien Buenosebas on 08-15-2024 Protein (U) [Mass/Vol] Trace mg/dL High Negative [facility] Serum or plasma anion gap de terminationOrdered By: Thien Buenosebas on 08-15-2024 Anion gap [Moles/Vol] 8.2 mmol/L Normal 6.0-15.0 [facility] Comment on above: Performed By: #### H S TROP, CK, BMP, DDIMER, CBC, BNP #### [address] Sodium [Moles/volume] in Ser um or PlasmaOrdered By: Thien Buenosebas on 08-15-2024 Sodium [Moles/Vol] 138 mmol/L Normal 136-145 [facility] Comment on above: Performed By: #### H S TROP, CK, BMP, DDIMER, CBC, BNP #### [address] Specific gravity Test strip (U) [Rel density]Ordered By: Thien Buenosebas on 08-15-2024 Specific gravity (U) [Rel density] 1.031 High 1.001-1.03 0 [facility] Troponin I High Sensitivityo n 08-15-2024 Troponin I High Sensitivity < 2.3 Normal 0.0-15.0 [facility] Comment on above: Result Comment: PERF ORMED BY: [place] [address] PATHOLOGIST CLINICAL SERVICES SPECIALIST SULTANA ROBBINS M.D. Performed By: #### H S TROP, CK, BMP, DDIMER, CBC, BNP #### [address] Troponin I.cardiac [Mass/vol ume] in Serum or Plasma by Detection limit <= 0.01 ng/Ordered By: Thien Olea on 08-15-2024 Troponin I.cardiac DL <= 0.01 ng/mL [Mass/Vol] < 2.3 pg/mL 0.0-15.0 [facility] Urea nitrogen [Mass/volume] in Serum or PlasmaOrdered By: Thien Olea on 08-15-2024 Urea nitrogen [Mass/Vol] 15 mg/dL Normal - [facility] Comment on above: Performed By: #### H S TROP, CK, BMP, DDIMER, CBC, BNP #### [address] Urine Cultureon 08-15-2024 Bacteria identified Cx Nom (U) <9,000 colonies/ml mixed bacterial skin contaminants 2 Days PERFORMED BY: [place] [address] PATHOLOGIST CLINICAL SERVICES SPECIALIST SULTANA ROBBINS M.D. Normal [facility] Comment on above: Performed By: #### C UUVERONIQUE UHCG #### [address] Urine appearanceOrdered By: Thien Olea on 08-15-2024 Appearance (U) Clear Normal Clear [facility] Comment on above: Order Comment: Name Collection Type:: Clean-Voided Midstream Performed By: #### C UUCANDELARIAONUAPLUS UHCG #### [address] Urobilinogen Test strip (U) [Mass/Vol]Ordered By: Thien Olea on 08-15-2024 Urobilinogen (U) [Mass/Vol] Normal mg/dL Normal [facility] XR chest 2V*on 08-15-2024 XR chest 2V* [facility] [place] [address] [place] [address] XRay Report Signed Patient: Hansa Murcia MR#: [id number] 4 : 2000 Acct:[id number] Age/Sex: 24 / F ADM Date: 08/15/24 Loc: ER Room: Type: [facility] ER Attending Dr: Copies to: hTien Olea DO Ordering Provider: Thien Olea DO Date of Service: 08/15/24 XR/XR chest 2V*: Shortness of Breath/Dyspnea XR chest 2V* 08/15/2024 12:06 PM SIGNS AND SYMPTOMS: Shortness breath, chest pain PROTOCOL: Frontal and lateral radiographs of the chest COMPARISON: None FINDINGS: The trachea is midline. The heart and mediastinal structures are within normal limits. The lung parenchyma is clear. The bony thorax is intact. XR/XR chest 2V* IMPRESSION: No acute cardiopulmonary pathology. Impression dictated by: Beny Wakefield M.D.08/15/2024 12:08 PM Dictation Location: [place] [address] Transcribed By: [facility] 08/15/24 1208 Dictated By: Beny Wakefield II, MD 08/15/24 1207 Signed By: 08/15/24 1208 Normal [facility] pH of Urine by Test stripOrd ered By: Thien Olea on 08-15-2024 pH (U) 6.0 [pH] Normal 5.0-9.0 [facility] Comment on above: Order Comment: Name Collection Type:: Clean-Voided Midstream Performed By: #### C UU, ADDONUAPLUS, [facility] #### [address] Ambulatory Visit Summaryon 0 05-16-2024 Ambulatory Visit Summary Ambulatory Visit Summary ARNULFO HANSA Bruce :2000 Visit Date:05/16/2024 Ambulatory Visit Instructions Your Diagnosis Otitis media Your Care Team Attending Physician - GERI MORA Primary Care Physician - Tammi Braun This Is Your Medications List azithromycin (Zithromax 250 mg Tab) methylPREDNISolone (Medrol 4 mg Tab) ondansetron (Zofran ODT 4 mg Tab-Dis) venlafaxine (Effexor XR 37.5 mg Cap-ER) Procedures Performed Surgery. Discharge Vitals Heart Rate (Peripheral) 89 Respiratory Rate 16 Blood Pressure 108/62 Height 165.5 cm Height 65 in Weight 50.0 kg Weight 110 lb BMI 18.25 Medications What How Much When Why Instructions New azithromycin (Zithromax 250 mg Tab) 1 Packets By Mouth As Directed Otitis media Duration: 5 Days as directed on package labeling Pickup at [facility]/pharmacy #[id number] New methylPREDNISolone (Medrol 4 mg Tab) 1 Packets By Mouth As Directed Otitis media Duration: 6 Days as directed on package labeling Pickup at [facility]/pharmacy #[id number] Unchanged ondansetron (Zofran ODT 4 mg Tab-Dis) 1 Tablets By Mouth 3 times a day as needed for Nausea/Vomiting Chronic nausea Unchanged venlafaxine (Effexor XR 37.5 mg Cap-ER) 1 Capsules By Mouth Every day Pharmacy Information [facility]/pharmacy #[id number]: [address], [place] [id number] [phone] Allergies No Known Allergies Problems Ongoing - Any problem that you are currently receiving treatment for. BMI less than 19,adult Bronchitis Chronic nausea Heart burn History of IBS Left upper quadrant pain Nausea Pelvic pain Pre-op exam Pre-op testing Sinusitis Underweight Historical - Any problem that you are no longer receiving treatment for. Depression Patient Survey You may receive a survey via text or e-mail asking about your office visit. Please share your experience with us by completing your survey. We appreciate your feedback and thank you for choosing us for your care. Normal [facility] Family Medicine Office/Clini c Noteon 05-16-2024 Family Medicine Office/Clinic Note Family Medicine Office/Clinic Note HPI Staff Hansa Arredondo 24 presents today for acute visit for pain in both ears complaints of _ Onset: 1 weeks Characteristics: ringing, slight burning dull aching pain comes and goes OTC tried: none History of Present Illness Hansa is a 24 year old female who presents with acute ear pain and pressure. She reports she has a history of multiple ear infections as a child but never had tubes. She generally sees Tammi Wen in [place] as her PCP, but was unable to get into her today. She reports the ear pain is causing a migraine. She reports her ears feel full, plugged, and she's experiencing intermittent pound in her ears. Reports the pain is as high as a 6/10 at the worst. Staff HPI reviewed and accurate. Review of Systems PHQ Score Initial Depression Screen Score: 0 SCORE Physical Exam Vitals & Measurements HR: 89(Peripheral) RR: 16 BP: 108/62 SpO2: 98% HT: 65 in HT: 165.5 cm WT: 50.0 kg WT: 110 lb BMI: 18.25 TM's: bulging, erythematous, L>R Throat: slightly erythematous No lymphadenopathy Assessment/Plan 1. Otitis media, (H66.90: Otitis media, unspecified, unspecified ear)Otitis media Z-pack and medrol as prescribed Instructed to take a decongestant FU w/ PCP Ordered: azithromycin, = 1 packet(s), Oral, As Directed, as directed on package labeling, X 5 day(s), # 6 tab(s), Refills(s) 0, Pharmacy: [facility]/pharmacy #[id number], 165.5, cm, 05/16/24 10:46:00 EDT, Height/Length Dosing, 50, kg, 05/16/24 10:46:00 EDT, Weight Dosing methylPREDNISolone, = 1 packet(s), Oral, As Directed, as directed on package labeling, X 6 day(s), # 21 tab(s), Refills(s) 0, Pharmacy: [facility]/pharmacy #[id number], 165.5, cm, 05/16/24 10:46:00 EDT, Height/Length Dosing, 50, kg, 05/16/24 10:46:00 EDT, Weight Dosing 2. BMI less than 19,adult (Z68.1: Body mass index [BMI] 19.9 or less, adult) Continue to monitor 3. Underweight (R63.6: Underweight) Continue to monitor Follow-up No qualifying data available Problem List/Past Medical History Ongoing BMI less than 19,adult Bronchitis Chronic nausea Heart burn History of IBS Left upper quadrant pain Nausea Otitis media Pelvic pain Pre-op exam Pre-op testing Sinusitis Underweight Historical Depression Procedure/Surgical History Surgery. Medications Effexor XR 37.5 mg Cap-ER, 37.5 mg= 1 cap(s), Oral, Daily Medrol 4 mg Tab, 1 packet(s), Oral, As Directed Zithromax 250 mg Tab, 1 packet(s), Oral, As Directed Zofran ODT 4 mg Tab-Dis, 4 mg= 1 tab(s), Oral, TID, PRN, 1 refills Allergies No Known Allergies Social History Alcohol - Denies Alcohol Use, 07/22/2021 Substance Abuse - Denies Substance Abuse, 07/22/2021 Tobacco - No Risk, 12/21/2022 Never (less than 100 in lifetime) Tobacco Use:. Never Smokeless Tobacco Use:. Household tobacco concerns: No., 05/16/2024 Immunizations Vaccine Date Status meningococcal conjugate vaccine 06/06/2018 Recorded diphtheria/pertussis, acel/tetanus adult 05/28/2013 Recorded poliovirus vaccine, inactivated 05/28/2004 Recorded measles/mumps/rubella virus vaccine 05/28/2004 Recorded DTaP, unspecified formulation 05/28/2004 Recorded varicella virus vaccine 08/02/2001 Recorded DTaP, unspecified formulation 08/02/2001 Recorded poliovirus vaccine, inactivated 05/03/2001 Recorded measles/mumps/rubella virus vaccine 05/03/2001 Recorded DTaP, unspecified formulation 2000 Recorded poliovirus vaccine, inactivated 2000 Recorded DTaP, unspecified formulation 2000 Recorded poliovirus vaccine, inactivated 2000 Recorded DTaP, unspecified formulation 2000 Recorded Normal [facility] Comment on above: Result Comment: Elec tronically Signed By: AVIS ESPINO, GERI\.br\Date and Time Signed: 05/16/24 11:04 EDT Ambulatory Visit Summaryon 0 01-04-2024 Ambulatory Visit Summary ARNULFO HANSA Barrera :2000 Visit Date:01/04/2024 Ambulatory Visit Instructions Your Diagnosis Depression BMI less than 19,adult Your Care Team Attending Physician - Tammi Braun Primary Care Physician - Tammi Braun This Is Your Medications List ondansetron (Zofran ODT 4 mg Tab-Dis) venlafaxine (Effexor XR 37.5 mg Cap-ER) Procedures Performed Surgery. Discharge Vitals Heart Rate (Peripheral) 68 Respiratory Rate 18 Blood Pressure 98/74 Height 167.0 cm Height 66 in Weight 50.0 kg Weight 110 lb BMI 17.93 Medications What How Much When Why Instructions Unchanged ondansetron (Zofran ODT 4 mg Tab-Dis) 1 Tablets By Mouth 3 times a day as needed for Nausea/Vomiting Chronic nausea Unchanged venlafaxine (Effexor XR 37.5 mg Cap-ER) 1 Capsules By Mouth Every day Allergies No Known Allergies Problems Ongoing - Any problem that you are currently receiving treatment for. BMI less than 19,adult Bronchitis Chronic nausea Heart burn History of IBS Left upper quadrant pain Nausea Pelvic pain Pre-op exam Pre-op testing Sinusitis Underweight Historical - Any problem that you are no longer receiving treatment for. Depression Patient Survey You may receive a survey via text or e-mail asking about your office visit. Please share your experience with us by completing your survey. We appreciate your feedback and thank you for choosing us for your care. 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 History of Present Illness pt presents today for depression. was being seen by psych at [facility] but has since graduated and just needs someone to refill meds Review of Systems PHQ Score Initial Depression Screen Score: 0 SCORE Physical Exam Vitals & Measurements HR: 68(Peripheral) RR: 18 BP: 98/74 SpO2: 99% HT: 66 in HT: 167.0 cm WT: 50.0 kg WT: 110 lb BMI: 17.93 General: alert, no acute distress ENMT: oral mucosa moist, no pharyngeal erythema or exudate Cardiovascular: regular rate and rhythm, normal peripheral perfusion Respiratory: Lungs CTA, respirations non labored Extremities: no deformity, no trauma Neurological: oriented x 4, LOC appropriate for age, CN II-XII intact, motor strength equal & normal bilaterally, speech normal Assessment/Plan 1. Depression (F32.A: Depression, unspecified) PHQ-9 is 4. pt is doing well. does not need refills at this time. pt is also requesting she have her head checked for lice. 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 she is free of lice and knits. RTC as needed Orders: ondansetron, 4 mg = 1 tab(s), Oral, q6hr, PRN Nausea/Vomiting, # 12 tab(s), Refills(s) 1, Pharmacy: [facility]/pharmacy #[id number], 167, cm, 10/20/23 10:18:00 EST, Height/Length Dosing, 46.9, kg, 10/20/23 10:18:00 EST, Weight Dosing Follow-up No qualifying data available Problem List/Past Medical History Ongoing BMI less than 19,adult Bronchitis Chronic nausea Heart burn History of IBS Left upper quadrant pain Nausea Pelvic pain Pre-op exam Pre-op testing Sinusitis Underweight Historical Depression Procedure/Surgical History Surgery. Medications Effexor XR 37.5 mg Cap-ER, 37.5 mg= 1 cap(s), Oral, Daily Zofran ODT 4 mg Tab-Dis, 4 mg= 1 tab(s), Oral, TID, PRN, 1 refills Allergies No Known Allergies Social History Alcohol - Denies Alcohol Use, 07/22/2021 Substance Abuse - Denies Substance Abuse, 07/22/2021 Tobacco - No Risk, 12/21/2022 Never (less than 100 in lifetime) Tobacco Use:. Never Smokeless Tobacco Use:. Cigarettes, Household tobacco concerns: No., 01/04/2024 Immunizations Vaccine Date Status meningococcal conjugate vaccine 06/06/2018 Recorded diphtheria/pertussis, acel/tetanus adult 05/28/2013 Recorded poliovirus vaccine, inactivated 05/28/2004 Recorded measles/mumps/rubella virus vaccine 05/28/2004 Recorded DTaP, unspecified formulation 05/28/2004 Recorded varicella virus vaccine 08/02/2001 Recorded DTaP, unspecified formulation 08/02/2001 Recorded poliovirus vaccine, inactivated 05/03/2001 Recorded measles/mumps/rubella virus vaccine 05/03/2001 Recorded DTaP, unspecified formulation 2000 Recorded poliovirus vaccine, inactivated 2000 Recorded DTaP, unspecified formulation 2000 Recorded poliovirus vaccine, inactivated 2000 Recorded DTaP, unspecified formulation 2000 Recorded Normal [facility] Comment on above: Result Comment: Elec tronically Signed By: Tammi Braun\.br\Date and Time Signed: 01/04/24 09:05 EDT Laboratory - Microbiology an d Antimicrobial susceptibilityon 11-29-2023 SARS-CoV-2 (COVID-19) RNA MICHELLE+probe Ql (Unsp spec) Negative [facility] No Panel Informationon 11-29 FLU A Positive [facility] FLU B Negative [facility] Interpretation and review of laboratory results Abnormal [facility] S. pyogenes DNA MICHELLE+probe No m (Unsp spec)on 11-29-2023 Interpretation and review of laboratory results Normal [facility] RESULT Negative [facility] Ambulatory Visit Summaryon 1 12-21-2022 Ambulatory Visit Summary HANSA ARREDONDO :2000 Visit Date:10/20/2023 Ambulatory Visit Instructions Your Diagnosis Bronchitis Cough Sinusitis BMI less than 19,adult Nonsmoker Your Care Team Attending Physician - Tammi Braun Primary Care Physician - Tammi Braun This Is Your Medications List azithromycin (azithromycin 250 mg Tab) benzonatate (benzonatate 200 mg oral capsule) methylPREDNISolone (Medrol 4 mg Tab) ondansetron (Zofran ODT 4 mg Tab-Dis) ondansetron (ondansetron 4 mg Tab) venlafaxine (Effexor XR 37.5 mg Cap-ER) Procedures Performed Surgery. Discharge Vitals Temperature (Temporal Artery) 36.7 ?C Heart Rate (Peripheral) 100 Respiratory Rate 20 Blood Pressure 96/60 Height 167 cm Height 66 in Weight 46.9 kg Weight 103.18 lb BMI 16.82 Medications What How Much When Why Instructions New azithromycin (azithromycin 250 mg Tab) 1 Packets By Mouth As Directed BMI less than 19,adult Nonsmoker Duration: 5 Days as directed on package labeling Pickup at [facility]/pharmacy #[id number] New benzonatate (benzonatate 200 mg oral capsule) 1 Capsules By Mouth 3 times a day BMI less than 19,adult Nonsmoker Duration: 7 Days Pickup at [facility]/pharmacy #[id number] New methylPREDNISolone (Medrol 4 mg Tab) 1 Packets By Mouth As Directed BMI less than 19,adult Nonsmoker Duration: 6 Days as directed on package labeling Pickup at [facility]/pharmacy #[id number] Changed ondansetron (ondansetron 4 mg Tab) 1 Tablets By Mouth Every 6 hours as needed for Nausea/Vomiting BMI less than 19,adult Nonsmoker Pickup at [facility]/pharmacy #6103 Changed ondansetron (Zofran ODT 4 mg Tab-Dis) 1 Tablets By Mouth 3 times a day as needed for Nausea/Vomiting Chronic nausea Unchanged venlafaxine (Effexor XR 37.5 mg Cap-ER) 1 Capsules By Mouth Every day Pharmacy Information [facility]/pharmacy #[id number]: [address] [place], [place] [id number] [phone] Allergies No Known Allergies Problems Ongoing - Any problem that you are currently receiving treatment for. BMI less than 19,adult Bronchitis Chronic nausea Heart burn History of IBS Left upper quadrant pain Nausea Pelvic pain Pre-op exam Pre-op testing Sinusitis Underweight Historical - Any problem that you are no longer receiving treatment for. Depression Patient Survey You may receive a survey via text or e-mail asking about your office visit. Please share your experience with us by completing your survey. We appreciate your feedback and thank you for choosing us for your care. Normal [facility] Family Medicine Office/Clini c Noteon 10-20-2023 Family Medicine Office/Clinic Note HPI Staff Hansa is a 23 year old female presenting for sick visit Acute: URI ddn't covid test self _Respiratory C/O: Duration: Ave live Body aches: yes Chest congestion: yes Chills: yes Cough: yes sore throat: yes Ear complaints: yes Eye itching/watering: yes Fever: no unsure Headache: yes Nasal congestion: yes Nasal discharge: no Poor appetite: yes Reduced activity: yes Sinus pain/pressure: yes Sneezing: no Sputum production: yes very little and it's clear Wheezing: no Ill contacts: yes few weeks ago faye had strep Remedies tried: tylenol extra strength _ _ History of Present Illness pt presents today with cough, congestion nausea, sore throat Review of Systems PHQ Score Initial Depression Screen Score: 1 SCORE ROS - Provider Constitutional: no fever, no chills, no sweats, no fatigue Respiratory: no shortness of breath, yes cough, no orthopnea, no wheezing. congsetion, sore throat Cardiovascular: no chest pain, no palpitations, no edema. Neurologic: no headache, no dizziness, no numbness, no weakness. Physical Exam Vitals & Measurements T: 36.7 ?C(Temporal Artery) HR: 100(Peripheral) RR: 20 BP: 96/60 SpO2: 99% HT: 66 in HT: 167 cm WT: 46.9 kg WT: 103.18 lb BMI: 16.82 General: alert, no acute distress ENMT: oral mucosa moist, yes pharyngeal erythema or e no xudate, YOVANI TM red ad moderate amount clear fluid Cardiovascular: regular rate and rhythm, normal peripheral perfusion Respiratory: Lungs CTA, respirations non labored Extremities: no deformity, no trauma Neurological: oriented x 4, LOC appropriate for age, CN II-XII intact, motor strength equal & normal bilaterally, speech normal Assessment/Plan 1. Bronchitis (J40: Bronchitis, not specified as acute or chronic) pt presents today with cough, congestion, sore throat nausea. will treat with z kwaku, medrol and tessalon pearls. zofran given for nausea as well. RTC as needed. covid and influenza negative in office today 2. Cough (R05.9: Cough, unspecified) see above Ordered: Influenza Type A&B POC 93753 Rapid COVID POC 84935 3. Sinusitis (J32.9: Chronic sinusitis, unspecified) sinus pressure, nasal congestion 4. BMI less than 19,adult (Z68.1: Body mass index [BMI] 19.9 or less, adult) discussed eating small frequent meals and stying hydrated Ordered: azithromycin, = 1 packet(s), Oral, As Directed, as directed on package labeling, X 5 day(s), # 6 tab(s), Refills(s) 0, Pharmacy: [facility]/pharmacy #[id number], 167, cm, 10/20/23 10:18:00 EST, Height/Length Dosing, 46.9, kg, 10/20/23 10:18:00 EST, Weight Dosing benzonatate, 200 mg = 1 cap(s), Oral, TID, X 7 day(s), # 21 cap(s), Refills(s) 0, Pharmacy: [facility]/pharmacy #[id number], 167, cm, 10/20/23 10:18:00 EST, Height/Length Dosing, 46.9, kg, 10/20/23 10:18:00 EST, Weight Dosing methylPREDNISolone, = 1 packet(s), Oral, As Directed, as directed on package labeling, X 6 day(s), # 21 tab(s), Refills(s) 0, [id number] 167, cm, 10/20/23 10:18:00 EST, Height/Length Dosing, 46.9, kg, 10/20/23 10:18:00 EST, Weight Dosing ondansetron, 4 mg = 1 tab(s), Oral, q6hr, PRN Nausea/Vomiting, # 12 tab(s), Refills(s) 0, Pharmacy: [facility] #[id number], 167, cm, 10/20/23 10:18:00 EST, Height/Length Dosing, 46.9, kg, 10/20/23 10:18:00 EST, Weight Dosing 5. Nonsmoker (Z78.9: Other specified health status) continue not smoking Ordered: azithromycin, = 1 packet(s), Oral, As Directed, as directed on package labeling, X 5 day(s), # 6 tab(s), Refills(s) 0, Pharmacy: [facility] #[id number], 167, cm, 10/20/23 10:18:00 EST, Height/Length Dosing, 46.9, kg, 10/20/23 10:18:00 EST, Weight Dosing benzonatate, 200 mg = 1 cap(s), Oral, TID, X 7 day(s), # 21 cap(s), Refills(s) 0, Pharmacy: [facility] #[id number], 167, cm, 10/20/23 10:18:00 EST, Height/Length Dosing, 46.9, kg, 10/20/23 10:18:00 EST, Weight Dosing methylPREDNISolone, = 1 packet(s), Oral, As Directed, as directed on package labeling, X 6 day(s), # 21 tab(s), Refills(s) 0, [id number] 167, cm, 10/20/23 10:18:00 EST, Height/Length Dosing, 46.9, kg, 10/20/23 10:18:00 EST, Weight Dosing ondansetron, 4 mg = 1 tab(s), Oral, q6hr, PRN Nausea/Vomiting, # 12 tab(s), Refills(s) 0, Pharmacy: [facility] #[id number], 167, cm, 10/20/23 10:18:00 EST, Height/Length Dosing, 46.9, kg, 10/20/23 10:18:00 EST, Weight Dosing Follow-up No qualifying data available Problem List/Past Medical History Ongoing BMI less than 19,adult Bronchitis Chronic nausea Heart burn History of IBS Left upper quadrant pain Nausea Pelvic pain Pre-op exam Pre-op testing Sinusitis Underweight Historical Depression Procedure/Surgical History Surgery. Medications azithromycin 250 mg Tab, 1 packet(s), Oral, As Directed benzonatate 200 mg oral capsule, 200 mg= 1 cap(s), Oral, TID Effexor XR 37.5 mg Cap-ER, 37.5 mg= 1 cap(s), Oral, Daily Medrol 4 mg Tab, 1 packet(s), Oral, As Directed ondansetron 4 mg Tab, 4 mg= 1 tab(s), Oral, q6hr, PRN (more content not included)... Normal [facility] Comment on above: Result Comment: Elec tronically Signed By: Tammi Braun\.br\Date and Time Signed: 10/20/23 10:33 EST CHEMISTRYOrdered By: SYSTEM SYSTEM on 08-24-2023 Amphetamines Screen method >1000 ng/mL Ql (U) Negative 6 (08/24/23 5:00 PM) Normal Negative [facility] Comment on above: Interpretive Data: N egative Cutoff: <1000 ng/mL Barbiturates Screen Ql (U) Negative 7 (08/24/23 5:00 PM) Normal Negative [facility] Comment on above: Interpretive Data: N egative Cutoff: <200 ng/mL Benzodiazepines Ql (U) Negative 1 (08/24/23 5:00 PM) Normal Negative [facility] Comment on above: Interpretive Data: N egative Cutoff: <200 ng/mL Cocaine Ql (U) Negative 2 (08/24/23 5:00 PM) Normal Negative [facility] Comment on above: Interpretive Data: N egative Cutoff: <300 ng/mL Opiates Screen Ql (U) Negative 3 (08/24/23 5:00 PM) Normal Negative [facility] Comment on above: Interpretive Data: N egative Cutoff: <300 ng/mL Phencyclidine Screen method >25 ng/mL Ql (U) Negative 4 (08/24/23 5:00 PM) Normal Negative [facility] Comment on above: Interpretive Data: N egative Cutoff: <25 ng/mL These drug screen results are to be used for medical (i.e., treatment) purposes only. Unconfirmed drug screening results must not be used for non-medical purposes (e.g., employment testing, legal testing). Tetrahydrocannabinol Screen method >50 ng/mL Ql (U) Negative 5 (08/24/23 5:00 PM) Normal Negative [facility] Comment on above: Interpretive Data: N egative Cutoff: <50 ng/mL Albumin [Mass/Vol] 4.7 g/dL Normal 3.3 - 5.0 gm/dL [facility] Albumin/Globulin [Mass ratio] 1.3 {ratio} Normal 1.1 - 2.2 [facility] ALP [Catalytic activity/Vol] 61 [iU]/d Normal 21 - 98 Int._Unit/ L [facility] ALT No additional P-5'-P [Catalytic activity/Vol] 17 [iU]/d Normal 6 - 46 Int._Unit/ L [facility] Anion gap [Moles/Vol] 10 mmol/L Normal 6 - 16 mEq/L [facility] AST [Catalytic activity/Vol] 23 [iU]/d Normal 5 - 43 Int._Unit/ L [facility] Bilirubin [Mass/Vol] 0.7 mg/dL Normal 0.0 - 1 .1 mg/dL [facility] Calcium [Mass/Vol] 9.5 mg/dL Normal 8.9 - 11. 1 mg/dL [facility] Chloride [Moles/Vol] 107 mmol/L Normal 101 - 1 11 mmol/L [facility] CO2 [Moles/Vol] 25 mmol/L Normal 21 - 31 mmol/L [facility] Creatinine [Mass/Vol] 0.8 mg/dL Normal 0.5 - 1.3 mg/dL [facility] Ethanol [Mass/Vol] mg/dL Normal <=7mg/dL [facility] R em[facility] GFR/1.73 sq M.predicted among non-blacks MDRD (S/P/Bld) [Vol rate/Area] 106 mL/min/1.73 m2 Normal >=59mL/min /1.73 m2 [facility] S Comment on above: Interpretive Data: C hronic kidney disease could be indicated at eGFR's of less than 60 mL/min/1.73m2. Kidney failure is indicated at less than 15 mL/min/1.73m2. Globulin (S) [Mass/Vol] 3.6 g/dL Normal 1.4 - 4.0 gm/dL [facility] Glucose [Mass/Vol] 106 mg/dL Normal 55 - 199 mg/dL [facility] Comment on above: Interpretive Data: I f this glucose result represents a fasting glucose, interpretation should refer to the following reference range: 55-99 mg/dL Potassium [Moles/Vol] 3.5 mmol/L Normal 3.5 - 5.3 mmol/L [facility] Protein [Mass/Vol] 8.3 g/dL High 6.0 - 7.8 gm/dL [facility] Sodium [Moles/Vol] 138 mmol/L Normal 135 - 145 mmol/L [facility] T4 [Mass/Vol] 8.0 ug/dL Normal 4.6 - 9.1 mcg/dL [facility] TSH Qn 3.01 m[IU]/L Normal 0.34 - 5.60 mcIU/mL [facility] Urea nitrogen [Mass/Vol] 12 mg/dL Normal 5 - 21 mg/dL [facility] Urea nitrogen/Creatinine [Mass ratio] 15 mg/mg Normal 10 - 20 [facility] HEMATOLOGYOrdered By: SYSTEM SYSTEM on 08-24-2023 Basophils/100 WBC (Bld) 0.4 % Normal 0.0 - 2.0 % [facility]eAutoSS Basophils/Leukocytes Auto (Bld) [Pure # fraction] 0.0 E9/L Normal 0.0 - 0.2 E9/L [facility] Eosinophils/100 WBC (Bld) 2.3 % Normal 0.0 - 8.0 % [facility] Eosinophils/Leukocytes Auto (Bld) [Pure # fraction] 0.2 E9/L Normal 0.0 - 0.5 E9/L [facility] Lymphocytes/100 WBC (Bld) 26.3 % Normal 14.0 - 50.0 % [facility] Lymphocytes/Leukocytes Auto (Bld) [Pure # fraction] 2.6 E9/L Normal 1.0 - 4.0 E9/L [facility] Monocytes/100 WBC (Bld) 5.6 % Normal 4.0 - 14.0 % [facility] Monocytes/Leukocytes Auto (Bld) [Pure # fraction] 0.5 E9/L Normal 0.2 - 1.0 E9/L [facility] Neutrophils/100 WBC (Bld) 65.4 % Normal 36.0 - 75.0 % [facility] Neutrophils/Leukocytes Auto (Bld) [Pure # fraction] 6.4 E9/L Normal 2.0 - 7.5 E9/L [facility] HEMATOLOGYOrdered By: Jakc Mcclure on 08-24-2023 Erythrocyte distribution width (RBC) [Ratio] 13.8 % Normal 10.9 - 14.2 % [facility] Hematocrit (Bld) [Volume fraction] 40.1 % Normal 34.0 - 46.0 % [facility] Hemoglobin (Bld) [Mass/Vol] 13.5 g/dL Normal 12.0 - 16.0 gm/dL [facility] MCH (RBC) [Entitic mass] 28.9 pg Normal 27.0 - 34.0 pg [facility] MCHC (RBC) [Mass/Vol] 33.7 g/dL Normal 31.4 - 36.0 gm/dL [facility] MCV (RBC) [Entitic vol] 85.7 fL Normal 80.0 - 100.0 fL [facility] Platelet mean volume (Bld) [Entitic vol] 8.6 fL Normal 6.4 - 10.8 fL [facility] Platelets (Bld) [#/Vol] 267.0 E9/L Normal 150.0 - 500.0 E9/L [facility] Comment on above: Result Comment: Unab le to obtain accurate platelet count due to platelet clumping. Platelet count estimate appears normal on slide. RBC (Bld) [#/Vol] 4.7 E12/L Normal 4.3 - 5.9 E12/L [facility] WBC corrected for nucl RBC Auto (Bld) [#/Vol] 9.8 E9/L Normal 4.0 - 11.0 E9/L [facility] HemeAutoSS SEROLOGYOrdered By: Janine Oscar on 08-24-2023 Beta hCG Ql Negative (08/24/23 4:44 PM) Normal [facility] Man Sero URINALYSISOrdered By: Toya Oscar on 08-24-2023 Bacteria LM Ql (Urine sed) Trace /HPF Normal Trace/HPF [facility] UA Auto SS Bilirubin Ql (U) Negative (08/24/23 5:00 PM) Normal Negative [facility] UA Auto SS Clarity (U) Slightly Cloudy *ABN* (08/24/23 5:00 PM) Invalid Interpretation Code Clear [facility] UA Auto SS Color (U) Yellow (08/24/23 5:00 PM) Normal Yellow [facility] UA Auto SS Epithelial cells.squamous LM.HPF (Urine sed) [#/Area] 5-8 /HPF Normal 0-2/HPF [facility]A Aut o SS Glucose Test strip (U) [Mass/Vol] Negative (08/24/23 5:00 PM) Normal Negative [facility] UA Auto SS Hemoglobin Ql (U) 3+ *ABN* (08/24/23 5:00 PM) Invalid Interpretation Code Negative [facility] UA Auto SS Ketones (U) [Mass/Vol] Negative (08/24/23 5:00 PM) Normal Negative [facility] UA Auto SS Rossiter.plasma/Rossiter .RBC (Bld) [Mass ratio] 0-3 /HPF Normal 0-3/HPF [facility] UA Auto SS Mucus Ql (Urine sed) 2+ (08/24/23 5:00 PM) Normal [facility] UA Auto SS Nitrite Ql (U) Negative (08/24/23 5:00 PM) Normal Negative [facility] UA Auto SS pH (U) 6.5 *NA* (08/24/23 5:00 PM) Invalid Interpretation Code 5.0 - 9.0 [facility] UA Auto SS Protein (U) [Mass/Vol] Negative (08/24/23 5:00 PM) Normal Negative [facility] UA Auto SS Specific gravity (U) [Rel density] 1.025 *NA* (08/24/23 5:00 PM) Invalid Interpretation Code 1.005 - 1.030 [facility] UA Auto SS UA Spec Desc Random Urine (08/24/23 5:00 PM) Normal [facility] UA Auto SS Urobilinogen Qn (U) [id number] {Harish'U}/dL Normal 0.0 - 1.0 EU/dL [facility] UA Auto SS WBC Auto Ql (U) 1+ *ABN* (08/24/23 5:00 PM) Invalid Interpretation Code Negative [facility] UA Auto SS WBC LM.HPF (Urine sed) [#/Area] 6-15 /HPF Invalid Interpretation Code 0-5/HPF [facility] UA Auto SS Quick Strepon 07-06-2023 S. pyogenes Org specific cx Ql (Throat) Negative [facility] Other Quick Strep [facility] Other COVID + FLU Quick Testingon 06-27-2023 SARS-CoV-2 (COVID-19) RNA MICHELLE+probe Ql (Unsp spec) Negative [facility] Other COVID + FLU Quick Testing Negative [facility] Other Initial Visit (Gastroenterol ogy)on 02-23-2022 Initial Visit (Gastroenterology) Diagnoses/Problems Assessed Irritable bowel syndrome with constipation (564.1) (K58.1) GERD (gastroesophageal reflux disease) (530.81) (K21.9) Orders GERD (gastroesophageal reflux disease) Start: Omeprazole 20 MG Oral Capsule Delayed Release; TAKE ONE CAPSULE BY MOUTH EVERY DAY Rx By: Sarah Limon; Dispense: 0 Days ; #:30 Capsule; Refill: 2;For: GERD (gastroesophageal reflux disease); ANTWAN = N; Verified Transmission to [facility]ACY #[id number]; Last Updated By: Munch On Me; 02/23/2022 11:17:30 AM Irritable bowel syndrome with constipation Start: Linzess 72 MCG Oral Capsule; TAKE 1 CAPSULE Daily Rx By: Sarah Limon; Dispense: 0 Days ; #:90 Capsule; Refill: 3;For: Irritable bowel syndrome with constipation; ANTWAN = N; [facility]; Msg to Pharmacy: Prior auth, prior failed attempts of benefiber and Miralax, IBS-C; Last Updated By: Munch On Me; 02/23/2022 11:18:05 AM Patient Discussion/Summary It was nice to talk to you I will get your colonoscopy from [facility] and CT from [facility] ([place]) I think some of your nausea could be related to constipation and reflux I would suggest starting Linzess daily to see if this helps with the bowel movements Also I would suggest OMeprazole for the reflux Follow up in 1 month (virtually) Provider Impressions This is a 21 year old with a PMH of depression who requests a virtual visit today for chronic nausea and constipation. Her reports intermittent symptoms for the last 6-7 years and has had a CT and Colonoscopy prior that were negative. She is having a BM every 3 days and prior failure of Benefiber and MiraLAX. She also has reflux 3 times/week. No records were available today. 1. Chronic nausea, constipation and GERD - reviewed that constipation and GERD could be contributory to nausea - would recommend a trial of Linzess - trial of Omeprazole - if no improvement will consider EGD - obtain OSH colonoscopy and CT 2. F/up in 1 month Chief Complaint An interactive audio and video telecommunication system which permits real time communications between the patient (at the originating site) and provider (at the distant site) was utilized to provide this telehealth service. Verbal consent was requested and obtained from HANSA ARREDONDO on this date, 02/23/2022 11:00 AM , for a telehealth visit. History of Present IllnessHansa Arredondo is a 21 year old with a PMH of depression. She requests an appointment today for chronic nausea. For about 6-7 years she has had constant nausea, abdominal pain, cramping. She has had a prior colonoscopy in 2018, in [address] scan and then she has had US and blood work. All of the tests were negative. She reports nausea, this is daily, this is intermittent, random. She denies aggravating or alleviating factors. Has nausea with and without eating. She uses emotorol and nauseen and these sort of help. She also reports cramping and pain, lower abdomen in the center and sometimes on the left side. She has IBS and has a BM once every 3 days. She denies rectal bleeding, diarrhea, fevers, weight loss, dysphagia, odynophagia, +acid reflux about 3/7 days. She does not use anything for that. She denies vomiting. SHe has tried Benefiber and MiraLAX Social Hx: Denies tobacco use, alcohol use, drug use, denies marijuana use Family Hx: She denies CRC, GI cancers, IBD, celiac, Anderson's esophagus Review of Systems Constitutional: no fever, no chills, not feeling tired and no recent weight loss. Eyes: no yellow sclera/jaundice. ENT: no lymphadenopathy. Cardiovascular: no shortness of breath and no chest pain. Respiratory: no cough. Gastrointestinal: as noted in HPI. Musculoskeletal: no joint swelling. Integumentary: no rashes, no skin lesions and was no jaundiced. Neurological: no headache. Psychiatric: no anxiety and no depression. Hematologic/Lymphatic: no tendency for easy bleeding and no tendency for easy bruising. All other systems have been reviewed and are negative for complaint. Allergies NoKnown No Known Allergies Recorded By: Sarah Limon; 02/23/2022 11:14:27 AM Current Meds Medication NameInstruction Effexor 37.5 MG TABS Vitals Vital Signs Recorded: 23Feb2022 11:02AM Cmpihg117 lb Tobacco Useb) No Physical Exam Constitutional General appearance: In no acute distress . Signatures Electronically signed by : SINDHU Hernandez; Feb 23 2022 11:21AM EST (Author) Normal [employer] Tobacco Screening.on 022 Tobacco use status CP b) No MG-Gastroente valerioVikki [address] [facility]: [facility]21 SUSHIL Telephone (MANPREET) ----- HANSA ARREDONDO ([id number]) 1 F Date Time Provider Department 02/12/21 FABIEN VASQUEZ During your visit today, we recorded the following information about you: Lester Ramon Adm Asst 02/12/2021 11:07 AM Signed Faxed patient's office note to Dr. Reyes. Lester Belfry [employer]asma Allergies As of Date: 02/12/2021 Noted Allergy Reaction DAIRY AID (LACTASE) 02/06/2021 5 - Intolerance Date Reviewed: 02/06/2021 Reviewed by: Fabien Vasquez - Fully Assessed Reason for Visit: Faxed Office Note [Other] Prescriptions as of 02/12/2021 Sig: VENLAFAXINE ER 37.5 MG CAPSUL* Take 37.5 mg by mouth. Problem List As Of Date: 02/12/2021 (None) Encounter Status:Closed by JAMESPORT LESTER MCDONALD on 02/12/21 [facility] CNOVon 02-06-2021 CNOV Office Visit (MANPREET ) ----- ARNULFOHANSA LYONS ([id number]) 1 F Date Time Provider Department 02/06/21 11:00 AM FABIEN VASQUEZ During your visit today, we recorded the following information about you: Pulse Respiration Blood pressure Weight 87/minute 16/minute 113/65 54.4 kg Height 1.676 m Fabien Vasquez MD 02/06/2021 11:13 AM Signed REASON FOR CONSULT: Abdominal Pain, Nausea, and trouble eating REQUESTING PHYSICIAN: SELF Phone: N/A Fax: Assessment ASSESSMENT AND PLAN It took patient 1 hour and [address] to my office today. Patient recently started on an anti-depressant and patient d/c prochlorperazine because of a potential interaction. Patient sees a psychiatrist. This is a new physician to the patient. Patient was given various medicines by prior GI but these were not helpful. Patient encouraged to continue with psyche. Patient will ask psyche to call me.(Fabien Whitmore MD) Patient to re-engage with his primary physician, Dr. Reyes. Patient aware that I would be pleased to discuss case with him also. No f/u with me arranged. Note Faxed to PCP. HPI: Ms. Arredondo is a 20 year old female who presents for Abdominal Pain, Nausea, and trouble eating. I saw patient virtually on 06/16/2020 with years of unexplained abd pain and nausea. Her sx's have not changed. She has constipation, diarrhea, abd pain, INGRAM's, fatigue and lightheadedness and loss of appetite. No dysphagia. No GI bleeding. No fever. No CP. No back pain. She has lost wt but wt is steady now. I had seen patient as a 2nd opinion. Patient had been under the care of a GI for the past 2 yrs or so. Add'l hx can be found in my prior note. Patient had colonoscopy 2017 and patient told WNL. FH Neg for Celiac/IBD/Colon Ca PAST MEDICAL HISTORY: History reviewed. No pertinent past medical history. PAST SURGICAL HISTORY: History reviewed. No pertinent surgical history. FAMILY HISTORY: FAMILY HISTORY Problem Relation Age of Onset - Colon Polyps No Family History - Colon Cancer No Family History SOCIAL HISTORY: Social History Tobacco Use - Smoking status: Never Smoker - Smokeless tobacco: Never Used Substance Use Topics - Alcohol use: Not on file - Drug use: Not on file MEDICATIONS: venlafaxine ER (EFFEXOR XR) 37.5 mg 24 hr capsule Take 37.5 mg by mouth. CURRENT ALLERGIES: Allergies As of Date: 02/06/2021 Allergen Noted Reaction DAIRY AID [LACTASE] 02/06/2021 Intolerance Fully Assessed 02/06/2021 Review of Systems: Gastrointestinal: Negative for-vomiting, heartburn, food sticking in throat, painful swallowing, vomiting blood, black stool and red blood in stool. Positive for-nausea, abdominal pain, constipation, diarrhea, loss of appetite, early satiety (feeling full fast) and bloating. Constitutional: Negative for-recent weight gain and fever . Positive for-recent weight loss # of pounds 5 and fatigue. HEENT: Negative for-Sore throat and hoarseness. Positive for-none. Cardiovascular: Negative for-abnormal heart rhythm, chest pain and palpitations. Positive for-none. Respiratory: Negative for-cough, shortness of breath at rest and wheezing. Positive for-shortness of breath on exertion. Genitourinary: Negative for-frequent urination, kidney failure/dialysis and painful urination. Positive for-none. Neurological: Negative for-seizures. Positive for-headaches. Dermatology: Negative for-RASH. Positive for-none. Musculoskeletal: Negative for-joint pain and arthritis. Positive for-none. Psychiatric: Negative for-dementia. Positive for-depression and anxiety. Where do you currently reside? Independently Are you taking any blood thinners? No I have confirmed and edited as necessary, the PFSH and ROS obtained by others. PHYSICAL EXAM: BP 113/65 Pulse 87 Resp 16 Ht 167.6 cm (5' 6 ) Wt 54.4 kg (120 lb) BMI 19.37 kg/m? General appearance: Well appearing, alert, in no acute distress, well-hydrated, well nourished. Abdomen: Abdomen soft, non-tender. Bowel sounds normal. DATA: Diagnostic tests reviewed for today's visit: 12/11/10 US Normal ? 11/08/17 US Normal ? 11/17/17 HIDA Normal 2018 Reportedly neg Colonoscopy ? 08/24/19 CAT No Acute Findings ? 08/24/19 Labs Rev'd Referring Provider: SELF [[id number]] Allergies As of Date: 02/06/2021 Noted Allergy Reaction DAIRY AID (LACTASE) 02/06/2021 5 - Intolerance Date Reviewed: 02/06/2021 Reviewed by: Fabien Vasquez - Fully Assessed Reason for Visit: Abdominal Pain [1] Nausea [70] trouble eating [Other] Primary Visit Diagnosis:Constipation, unspecified constipation type [K59.00] Other Visit Diagnoses:Diarrhea, unspecified type [R19.7] Depression, unspecified depression type [F32.9] Generalized abdominal pain [R10.84] Prescriptions as of 02/06/2021 Sig: VENLAFAXINE ER 37.5 MG CAPSUL* Take 37.5 mg by mouth. (more content not included)... Normal [facility] CBC Auto Differentialon - Basophils (Bld) [#/Vol] 0.04 10*3/uL [facility] [place] Basophils/100 WBC (Bld) 0.4 % 0 - 2 % [facility], [place] Eosinophils (Bld) [#/Vol] 0.07 10*3/uL [facility] [place] Eosinophils/100 WBC (Bld) 0.7 % 0 - 6 % [place], [place] Erythrocyte distribution width (RBC) [Ratio] 12.2 fL 11.5 - 15 fL [place], [place] Hematocrit (Bld) [Volume fraction] 40.3 % 34 - 48 % [place] Hemoglobin (Bld) [Mass/Vol] 13.3 g/dL 11.5 - 15.5 g/dL [place], [place] Immature granulocytes (Bld) [#/Vol] 0.04 10*3/uL E9/L [place] Immature granulocytes/100 WBC (Bld) 0.4 % 0 - 5 % [place] Interpretation and review of laboratory results Abnormal [place] Lymphocytes (Bld) [#/Vol] 1.50 10*3/uL [place] Lymphocytes/100 WBC (Bld) 14.0 % Low 20 - 42 % [place] MCH (RBC) [Entitic mass] 30.4 pg 26 - 35 pg [place] MCHC (RBC) [Mass/Vol] 33.0 % 32 - 3 4.5 % [place] MCV (RBC) [Entitic vol] 92.0 fL 80 - 99.9 fL [place] Monocytes (Bld) [#/Vol] 0.54 10*3/uL [place] Monocytes/100 WBC (Bld) 5.0 % 2 - 12 % [place] Neutrophils Absolute 8.53 [place] Neutrophils/100 WBC (Bld) 79.5 % 43 - 80 % [place] Platelet mean volume (Bld) [Entitic vol] 11.3 fL 7 - 12 fL [place] Platelets (Bld) [#/Vol] 285 10*3/uL [place] RBC (Bld) [#/Vol] 4.38 10*6/uL [place] WBC (Bld) [#/Vol] 10.7 10*3/uL [place] CBC With Platelet and Differ entialon 08-24-2019 Abs Imm Granulocytes 0.04 E9/L Normal [facility] Basophils (Bld) [#/Vol] 0.04 E9/L Normal 0.00-0.20 [facility] Basophils/100 WBC (Bld) 0.4 % Normal 0.0-2.0 [facility] Eosinophils (Bld) [#/Vol] 0.07 E9/L Normal 0.05-0.50 [facility] Eosinophils/100 WBC (Bld) 0.7 % Normal 0.0-6.0 [facility] Erythrocyte distribution width (RBC) [Ratio] 12.2 fL Normal 11.5-15.0 [facility] Hematocrit (Bld) [Volume fraction] 40.3 % Normal 34.0-48.0 [facility] Hemoglobin (Bld) [Mass/Vol] 13.3 g/dL Normal 11.5-15.5 [facility] Imm Granulocytes 0.4 % Normal 0.0-5.0 [facility] Lymphocytes (Bld) [#/Vol] 1.50 E9/L Normal 1.50-4.00 [facility] Lymphocytes/100 WBC (Bld) 14.0 % Low 20.0-42.0 [facility] MCH (RBC) [Entitic mass] 30.4 pg Normal 26.0-35.0 [facility] MCHC (RBC) [Mass/Vol] 33.0 % Normal 32.0-34.5 [facility] MCV (RBC) [Entitic vol] 92.0 fL Normal 80.0-99.9 [facility] Monocytes (Bld) [#/Vol] 0.54 E9/L Normal 0.10-0.95 [facility] Monocytes/100 WBC (Bld) 5.0 % Normal 2.0-12.0 [facility] Neutrophils (Bld) [#/Vol] 8.53 E9/L [place] 1.80-7.30 [facility] Neutrophils/100 WBC (Bld) 79.5 % Normal 43.0-80.0 [facility] Platelet mean volume (Bld) [Entitic vol] 11.3 fL Normal 7.0-12.0 [facility] Platelets (Bld) [#/Vol] 285 E9/L Normal 130-450 [facility] RBC (Bld) [#/Vol] 4.38 E12/L Normal 3.50-5.50 [facility] WBC (Bld) [#/Vol] 10.7 E9/L Normal 4.5-11.5 [facility] CT ABDOMEN PELVIS W IV CONTR Beth 08-24-2019 CT ABDOMEN PELVIS W IV CONTRAST Patient : 2000 Age: 19 years Gender: Female Order Date: 08/24/2019 2:30 PM EXAM: CT ABDOMEN PELVIS W IV CONTRAST NUMBER OF IMAGES: 275 INDICATION: ABDOMINAL PAIN right sided abdominal pain/r/o appendicitis COMPARISON: None TECHNIQUE: CT of the abdomen and pelvis with contrast was performed using standard technique, scanning from just above the dome of the diaphragms to the symphysis pubis. Contrast: IV contrast: 110 mL of Isovue-370. Oral contrast: 50 mL of Omnipaque 240 CT Radiation dose: Integrated Dose-length product (DLP) for this visit = 478 mGy*cm. RESULT: Liver: No mass. Biliary: No bile duct dilation. Gallbladder is unremarkable. Spleen: No mass. No splenomegaly. Pancreas: No mass or duct dilation. Adrenals: No mass. Kidneys: No mass or hydronephrosis. Assessment of stones precluded due to excretion of contrast into the collecting system. GI tract: No small bowel or colonic dilation. Normal appendix. Moderate to large colonic stool burden. Rectum is mildly dilated to 6.3 cm filled with feces. Lymph nodes: No abdominal or pelvic lymphadenopathy. Mesentery/Peritoneum: No ascites or mass. Vasculature: The celiac axis and SMA are patent. The portal vein and branches, splenic vein, SMV, and hepatic veins are patent Pelvis: No mass, ascites or fluid collection. Urinary bladder is distended. Bones/Soft Tissues: No significant finding. Lower thorax: 3 mm groundglass nodule in the right lower lobe, likely infectious/inflammatory in etiology. IMPRESSION: Normal appendix. Moderate to large colonic stool burden with mild rectal dilation. Interpreted by: Leroy Phillips DO Signed by: Leroy Phillips DO 08/24/19 Final result Normal [facility] CT ABDOMEN PELVIS W IV CONTR AST Additional Contrast? Oralon 08-24-2019 Roger, Mhy Incoming Ra alexander Results From [facility] [employer] SROs - 08/24/2019 7:42 PM EDT Patient : 2000 Age: 19 years Gender: Female Order Date: 08/24/2019 2:30 PM EXAM: CT ABDOMEN PELVIS W IV CONTRAST NUMBER OF IMAGES: 275 INDICATION: ABDOMINAL PAIN right sided abdominal pain/r/o appendicitis COMPARISON: None TECHNIQUE: CT of the abdomen and pelvis with contrast was performed using standard technique, scanning from just above the dome of the diaphragms to the symphysis pubis. Contrast: IV contrast: 110 mL of Isovue-370. Oral contrast: 50 mL of Omnipaque 240 CT Radiation dose: Integrated Dose-length product (DLP) for this visit = 478 mGy*cm. RESULT: Liver: No mass. Biliary: No bile duct dilation. Gallbladder is unremarkable. Spleen: No mass. No splenomegaly. Pancreas: No mass or duct dilation. Adrenals: No mass. Kidneys: No mass or hydronephrosis. Assessment of stones precluded due to excretion of contrast into the collecting system. GI tract: No small bowel or colonic dilation. Normal appendix. Moderate to large colonic stool burden. Rectum is mildly dilated to 6.3 cm filled with feces. Lymph nodes: No abdominal or pelvic lymphadenopathy. Mesentery/Peritoneum: No ascites or mass. Vasculature: The celiac axis and SMA are patent. The portal vein and branches, splenic vein, SMV, and hepatic veins are patent Pelvis: No mass, ascites or fluid collection. Urinary bladder is distended. Bones/Soft Tissues: No significant finding. Lower thorax: 3 mm groundglass nodule in the right lower lobe, likely infectious/inflammatory in etiology. IMPRESSION: Normal appendix. Moderate to large colonic stool burden with mild rectal dilation. [place] Patient 7 : 2000 Age: 19 years Gender: Female Order Date: 08/24/2019 2:30 PM EXAM: CT ABDOMEN PELVIS W IV CONTRAST NUMBER OF IMAGES: 275 INDICATION: ABDOMINAL PAIN right sided abdominal pain/r/o appendicitis COMPARISON: None TECHNIQUE: CT of the abdomen and pelvis with contrast was performed using standard technique, scanning from just above the dome of the diaphragms to the symphysis pubis. Contrast: IV contrast: 110 mL of Isovue-370. Oral contrast: 50 mL of Omnipaque 240 CT Radiation dose: Integrated Dose-length product (DLP) for this visit = 478 mGy*cm. RESULT: Liver: No mass. Biliary: No bile duct dilation. Gallbladder is unremarkable. Spleen: No mass. No splenomegaly. Pancreas: No mass or duct dilation. Adrenals: No mass. Kidneys: No mass or hydronephrosis. Assessment of stones precluded due to excretion of contrast into the collecting system. GI tract: No small bowel or colonic dilation. Normal appendix. Moderate to large colonic stool burden. Rectum is mildly dilated to 6.3 cm filled with feces. Lymph nodes: No abdominal or pelvic lymphadenopathy. Mesentery/Peritoneum: No ascites or mass. Vasculature: The celiac axis and SMA are patent. The portal vein and branches, splenic vein, SMV, and hepatic veins are patent Pelvis: No mass, ascites or fluid collection. Urinary bladder is distended. Bones/Soft Tissues: No significant finding. Lower thorax: 3 mm groundglass nodule in the right lower lobe, likely infectious/inflammatory in etiology. [place] Normal appendix. Mod erate to large colonic stool burden with mild rectal dilation. [place] Comprehensive Metabolic Pane chantal 08-24-2019 Albumin [Mass/Vol] 4.9 g/dL Normal 3.5-5.2 [facility] ALP [Catalytic activity/Vol] 64 U/L Normal 35-104 [facility] ALT [Catalytic activity/Vol] 10 U/L Normal 0-32 [facility] Anion gap [Moles/Vol] 10 mmol/L Normal 7-16 [facility] AST [Catalytic activity/Vol] 20 U/L Normal 0-31 [facility] Bilirubin [Mass/Vol] 0.7 mg/dL Normal 0.0-1.2 [facility] Calcium [Mass/Vol] 9.2 mg/dL Normal 8.6-10.2 [facility] Chloride [Moles/Vol] 105 mmol/L Normal 98-107 [facility] CO2 [Moles/Vol] 27 mmol/L Normal 22-29 [facility] Creatinine [Mass/Vol] 0.6 mg/dL Normal 0.5-1.0 [facility] GFR/1.73 sq M predicted among blacks MDRD (S/P/Bld) [Vol rate/Area] mL/min/{1.73_m2} Normal [facility] GFR/1.73 sq M predicted among non-blacks MDRD (S/P/Bld) [Vol rate/Area] mL/min/{1.73_m2} Normal >=60 [facility] Comment on above: Result Comment: Hand Scraper nicolás Kidney Disease: less than 60 ml/min/1.73 sq.m. Kidney Failure: less than 15 ml/min/1.73 sq.m. Results valid for patients 18 years and older. Glucose [Mass/Vol] 91 mg/dL Normal 74-99 [facility] Potassium [Moles/Vol] 3.7 mmol/L Normal 3.5-5.0 [facility] Protein [Mass/Vol] 7.7 g/dL Normal 6.4-8.3 [facility] Sodium [Moles/Vol] 142 mmol/L Normal 132-146 [facility] Urea nitrogen [Mass/Vol] 13 mg/dL Normal 6-20 [facility] Albumin [Mass/Vol] 4.9 g/dL 3.5 - 5.2 g/dL [place] ALP [Catalytic activity/Vol] 64 U/L 35 - 104 U/L [place] ALT [Catalytic activity/Vol] 10 U/L 0 - 32 U/L [place] Anion gap [Moles/Vol] 10 mmol/L 7 - 16 mmol/L [place] AST [Catalytic activity/Vol] 20 U/L 0 - 31 U/L [place] Bilirubin Ql (U) 0.7 mg/dL 0 - 1.2 mg/dL [place] Calcium [Mass/Vol] 9.2 mg/dL 8.6 - 10. 2 mg/dL [place] Chloride [Moles/Vol] 105 mmol/L 98 - 10 7 mmol/L [place] CO2 [Moles/Vol] 27 mmol/L 22 - 29 mmol/L [place] Creatinine [Mass/Vol] 0.6 mg/dL 0.5 - 1 mg/dL [place] GFR >60 [place] GFR Non- >60 >=60 mL/min/1.7 3 [place] Comment on above: Chronic Kidney Disea se: less than 60 ml/min/1.73 sq.m. Kidney Failure: less than 15 ml/min/1.73 sq.m. Results valid for patients 18 years and older. Glucose [Mass/Vol] 91 mg/dL 74 - 99 mg/dL [place] Potassium [Moles/Vol] 3.7 mmol/L 3.5 - 5 mmol/L [place] Protein [Mass/Vol] 7.7 g/dL 6.4 - 8.3 g/dL [place] Sodium [Moles/Vol] 142 mmol/L 132 - 146 mmol/L [place] Urea nitrogen [Mass/Vol] 13 mg/dL 6 - 20 mg/dL [place] Lactic Acidon 08-24-2019 Lactate [Moles/Vol] 1.3 mmol/L Normal 0.5-2.2 [facility] Lactic Acid, Plasmaon 2018 Lactate [Moles/Vol] 1.3 mmol/L 0.5 - 2. 2 mmol/L [place] Lipaseon 08-24-2019 Lipase [Catalytic activity/Vol] 20 U/L Normal 13-60 [facility] Lipase [Catalytic activity/Vol] 20 U/L 13 - 60 U/L [place] Microscopic Urinalysison Bacteria, UA RARE Abnormal /HPF [place] Epi Cells FEW /HPF [place] Interpretation and review of laboratory results Abnormal [place] RBC (U) [#/Vol] /uL [place] WBC, UA 1-3 [place] POC Urine Qualon 1 10-24-2018 Beta HCG ( test) Ql (U) Negative Negative [place] Interpretation and review of laboratory results Normal [place] Lot Number [id number] [place] Negative QC Pass/Fail Acceptable [place], [place] Positive QC Pass/Fail Acceptable [place] Urinalysison 08-24-2019 Bilirubin Urine Negative Negative [place] Blood, Urine LARGE Abnormal Negative [place] Clarity, UA Clear Clear [place] Color, UA Yellow [place] Glucose, Ur Negative Negative mg/dL [place] Interpretation and review of laboratory results Abnormal [place] Ketones Ql (U) Negative Negative mg/dL [place] Leukocyte esterase Test strip Ql (U) Negative Negative [place] Nitrite, Urine Negative Negative [place], [place] pH, UA 7.0 [place] Protein (U) [Mass/Vol] Negative Negat eli mg/dL [place] Specific [place], UA 1.020 [place] Urobilinogen, Urine 2.0 Abnormal <2.0 E.U./dL [place] Urinalysis, reflex to micros copicon 08-24-2019 Bilirubin Ql (U) Negative Normal Negative [facility] Clarity (U) Clear Normal Clear [facility] Color (U) Yellow Normal [place] [facility] Glucose Ql (U) Negative Normal Negative [facility] Hemoglobin Ql (U) LARGE Abnormal Negative [facility] Ketones Ql (U) Negative Normal Negative [facility] Leukocyte esterase Test strip Ql (U) Negative Normal Negative [facility] Nitrite Ql (U) Negative Normal Negative [facility] pH (U) 7.0 [pH] Normal 5.0-9.0 [facility] Protein Ql (U) Negative Normal Negative [facility] Specific gravity (U) [Rel density] 1.020 Normal 1.005-1.03 0 [facility] Urobilinogen Qn (U) 2.0 {Harish'U}/dL Abnormal < 2.0 [facility] Urine Microscopicon 08-24-20 19 Bacteria LM.HPF (Urine sed) [#/Area] RARE Abnormal [facility] Epithelial cells LM Ql (Urine sed) FEW Normal [facility] RBC (U) [#/Vol] /uL Normal 0-2 [facility] WBC (U) [#/Vol] 1-3 Normal 0-5 [facility] NM HEPATOBILIARY SCAN WITH E JECTION FRACTIONon 11-17-2017 NM HEPATOBILIARY SCAN WITH EJECTION FRACTION Patient : 2000Age: 17 yearsGender: FemaleEXAM: NM HEPATOBILIARY SCAN WITH EJECTION FRACTIONINDICATION: R10.9 Abdominal pain, unspecified abdominal location Abdominal pain, unspecified abdominal location COMPARISON: NoneTECHNIQUE: Hepatobiliary scintigraphy was performed for a total of onehour after the uncomplicated administration of 8.0 mCi technetium-99mMebrofenin. CCK (0.97 mcg IV) was injected, and additional imagingwas performed for time in order to determine the gallbladder ejectionfraction.FINDINGS : There is normal biliary uptake of the radiopharmaceutical with promptclearance of the blood pool activity. There is normal subsequentvisualization of the gallbladder, common bile duct and small bowel.The gallbladder ejection fraction is calculated to be 96%. This iswithin normal limits.IMPRESSION: 1. Normal hepatobiliary scintigraphy.2. Normal gallbladder ejection fraction equal to 96 %Interpreted by:ANA Brennanigned by:Roderick Martinez MD11/17/17inal result Normal [facility] US GALLBLADDER RUQon 018 US GALLBLADDER RUQ Patient 8DOB: 2000Age: 17 yearsGender: FemaleOrder Date: 11/08/2017 9:42 AMEXAM: US GALLBLADDER RUQNUMBER OF IMAGES: 30 Multiple real-time sonographic images of thegallbladder were obtained.INDICATION: Abdominal pain, unspecified abdominal location COMPARISON: NoneFINDINGS:The gallbladder shows no intraluminal areas of increased echogenicityto suggest cholelithiasis. No gallbladder wall thickening (1.4 mm),pericholecystic fluid, or biliary tree dilatation is seen. Common bileduct measures 1.6 mm.Visualized portions of the liver appear sonographically unremarkable.IMPRESSION: 1. Sonographically unremarkable gallbladder.Interpreted by:ANA Gonzalezigned by:Timothy Salazar MD11/08/17inal result Normal [facility] Vital Signs Date Time Vital Sign Value Performing Clinician Facility 11-26-2024 12:31-0500 Blood Pressure Location GABE ALBARRAN [facility] 11-26-2024 12:31-0500 Diastolic blood pressure 68 mm[Hg] [facility] ALBARR[facility] 11-26-2024 12:31-0500 Heart rate 76 /min AGBE ALBARRAN [facility] 11-26-2024 12:31-0500 SaO2% (BldA) [Mass fraction] 100 % [facility] ALBARR[facility] 11-26-2024 12:31-0500 Systolic blood pressure 108 mm[Hg] [facility] AL[facility]ARR[facility] 09-14-2024 12:42-0500 Blood Pressure Location Nicki Anglin [facility] 09-14-2024 12:42-0500 Body temperature 98.6 [degF] Nicki Ambrosioer [facility] 09-14-2024 12:42-0500 Diastolic blood pressure 60 mm[Hg] Nicki Anglin [facility] 09-14-2024 12:42-0500 Heart rate 99 /min Nicki Anglin [facility] 09-14-2024 12:42-0500 SaO2% (BldA) [Mass fraction] 98 % Nicki Derrek [facility] 09-14-2024 12:42-0500 Systolic blood pressure 110 mm[Hg] Nicki Derrek [facility] 08-15-2024 12:42-0400 Diastolic blood pressure 55 mm[Hg] [facility] 08-15-2024 12:42-0400 Heart rate 71 /min [facility] 08-15-2024 12:42-0400 Respiratory rate 20 /min [facility] 08-15-2024 12:42-0400 SaO2% (BldA) [Mass fraction] 100 % [facility] 08-15-2024 12:42-0400 Systolic blood pressure 99 mm[Hg] [facility] 08-15-2024 11:31-0400 Body temperature 98.3 [degF] [facility] 08-15-2024 10:23-0400 Body height 166.37 cm [facility] 08-15-2024 10:23-0400 Body weight 50.1 kg [facility] 05-16-2024 10:39-0400 Blood Pressure Location GABE ALBARRAN [facility] 05-16-2024 10:39-0400 Diastolic blood pressure 62 mm[Hg] GABE ALBARRAN [facility] 05-16-2024 10:39-0400 Heart rate 89 /min GABE ALBARRAN [facility] 05-16-2024 10:39-0400 Respiratory rate 16 /min GABE ALBARR[facility] 05-16-2024 10:39-0400 SaO2% (BldA) [Mass fraction] 98 % [facility] ALBARR[facility] 05-16-2024 10:39-0400 Systolic blood pressure 108 mm[Hg] [facility] ALBARRAN [facility] 11-29-2023 13:42-0500 Body mass index (BMI) [Ratio] 17.44 kg/m2 Flavia Wu [employer] Work Phone: [facility] 11-29-2023 13:42-0500 Body temperature 99.1 [degF] Flavia Wu [employer] Work Phone: [facility] 11-29-2023 13:42-0500 Body weight 49 kg Flavia Wu [employer] Work Phone: [facility] 11-29-2023 13:42-0500 Diastolic blood pressure 70 mm[Hg] Flavia Wu [employer] Work Phone: [facility] 11-29-2023 13:42-0500 Heart rate 102 /min Flavia Wu [employer] Work Phone: [facility] 11-29-2023 13:42-0500 SaO2% (BldA) [Mass fraction] 99 % Flavia Wu [employer] Work Phone: [facility] 11-29-2023 13:42-0500 Systolic blood pressure 118 mm[Hg] Flavia Wu [employer] Work Phone: [facility] 08-24-2023 20:52-0400 Diastolic blood pressure 67 mm[Hg] [facility] 08-24-2023 20:52-0400 Heart rate 85 /min [facility] 08-24-2023 20:52-0400 Respiratory rate 16 /min [facility] 08-24-2023 20:52-0400 SaO2% (BldA) [Mass fraction] 100 % [facility] 08-24-2023 20:52-0400 Systolic blood pressure 110 mm[Hg] [facility] 08-24-2023 19:19-0400 Diastolic blood pressure 65 mm[Hg] [facility] 08-24-2023 19:19-0400 Heart rate 80 /min [facility] 08-24-2023 19:19-0400 Mean blood pressure 79 mm[Hg] [facility] 08-24-2023 19:19-0400 Respiratory rate 18 /min [facility] 08-24-2023 19:19-0400 SaO2% (BldA) [Mass fraction] 100 % [facility] 08-24-2023 19:19-0400 Systolic blood pressure 107 mm[Hg] [facility] 08-24-2023 15:57-0400 Body temperature 97.7 [degF] [facility] 08-24-2023 15:57-0400 Diastolic blood pressure 58 mm[Hg] [facility] 08-24-2023 15:57-0400 Heart rate 90 /min [facility] 08-24-2023 15:57-0400 Respiratory rate 18 /min [facility] 08-24-2023 15:57-0400 SaO2% (BldA) [Mass fraction] 100 % [facility] 08-24-2023 15:57-0400 Systolic blood pressure 106 mm[Hg] [facility] 07-06-2023 16:00-0400 Body height Angeline Durbin Other [employer] Other 07-06-2023 16:00-0400 Body mass index (BMI) [Ratio] 16.78 kg/m2 Angeline Durbin Other [employer] Other 07-06-2023 16:00-0400 Body temperature 98.5 [degF] Angeline Durbin Other [employer] Other 07-06-2023 16:00-0400 Body weight 47.17 kg Angeline Durbin Other [employer] Other 07-06-2023 16:00-0400 Diastolic blood pressure 64 mm[Hg] Angeline Durbin Other [facility] Other 07-06-2023 16:00-0400 Respiratory rate 18 /min Angeline Durbin Other [employer] Other 07-06-2023 16:00-0400 SaO2% (BldA) [Mass fraction] 98 % Angeline Durbin Other [employer] Other 07-06-2023 16:00-0400 Systolic blood pressure 95 mm[Hg] Angeline Durbin Other [facility] Other 06-27-2023 11:25-0400 Body height Zak Lorenz Other [employer] Other 06-27-2023 11:25-0400 Body mass index (BMI) [Ratio] 16.78 kg/m2 Zak Lorenz Other [facility] Other 06-27-2023 11:25-0400 Body temperature 98.4 [degF] Zak Lorenz Other [facility] Other 06-27-2023 11:25-0400 Body weight 47.17 kg Zak Lorenz Other [facility] Other 06-27-2023 11:25-0400 Respiratory rate 20 /min Zak Lorenz Other [facility] [employer] Other 06-27-2023 11:25-0400 SaO2% (BldA) [Mass fraction] 99 % Zak Lorenz Other [facility] [employer] Other 03-07-2023 13:33-0400 Blood Pressure Location Jyotsnapayal VenturaJones [facility] 03-07-2023 13:33-0400 Diastolic blood pressure 62 mm[Hg] Jyotsnapayal [facility]Jones [facility] 03-07-2023 13:33-0400 Heart rate 82 /min Jyotsnapayal [facility] 03-07-2023 13:33-0400 Respiratory rate 18 /min Jyotsnapayal [facility] 03-07-2023 13:33-0400 SaO2% (BldA) [Mass fraction] 98 % Jyotsnapayal [facility] 03-07-2023 13:33-0400 Systolic blood pressure 102 mm[Hg] Jyotsnapayal [facility] 12-21-2022 08:10-0500 Blood Pressure Location SARAN SIDELL [facility] 12-21-2022 08:10-0500 Body temperature 98.06 [degF] SARAN SIDELL [facility] 12-21-2022 08:10-0500 Diastolic blood pressure 66 mm[Hg] SARAN SIDELL [facility] 02-28-2023 08:10-0500 Heart rate 78 /min SARAN GOMEZ [facility] 12-21-2022 08:10-0500 SaO2% (BldA) [Mass fraction] 98 % SARAN GOMEZ [facility] 12-21-2022 08:10-0500 Systolic blood pressure 112 mm[Hg] SARAN GOMEZ [facility] 02-23-2022 11:02-0400 Body weight 47.63 kg Referring Provider [address] Work Phone: 08-24-2019 20:18-0400 Body Temperature 97 [degF] Fabien [place] 08-24-2019 20:18-0400 BP Diastolic 62 mm[Hg] [facility] [place] 08-24-2019 20:18-0400 BP Systolic 120 mm[Hg] [facility] [place] 08-24-2019 20:18-0400 Pulse (Heart Rate) 79 /min [facility] [place] 08-24-2019 20:18-0400 Pulse Oximetry 99 % [facility] 08-24-2019 20:18-0400 Respiratory Rate 17 /min [facility] [place] 08-24-2019 13:56-0400 BMI (Body Mass Index) 17.43 kg/m2 [facility] [place] 08-24-2019 13:56-0400 Body weight 48.99 kg [facility] [place] 08-24-2019 13:56-0400 Height 167.6 cm [facility] [place] Encounters Encounter Date Encounter Type Care Provider Facility Start: 02-13-2025 End: 02-13-2025 Lab Drop off Tammi Pulido [facility] Start: 02-13-2025 End: 02-13-2025 ambulatory PILOT CONTROL OPERATOR Tammi L Ashok Facility:[facility] Start: 02-08-2025 End: 02-08-2025 ambulatory Tammi L Ashok Facility:[facility] Start: 02-08-2025 End: 02-08-2025 Patient encounter [facility] Start: 12-10-2024 End: 12-10-2024 ambulatory GABE ALBARRAN Facility:[facility] Start: 12-10-2024 End: 12-10-2024 Patient encounter procedure GABE ALBARRAN [facility] Start: 11-28-2024 End: 11-28-2024 ambulatory Tammi L Ashok Facility:[facility] Start: 11-28-2024 End: 11-28-2024 Patient encounter procedure [facility] Start: 11-26-2024 End: 11-26-2024 ambulatory GABE ALBARRAN Facility:[facility] Start: 11-26-2024 End: 11-26-2024 Patient encounter procedure GABE ALBARRAN [facility] Start: 09-14-2024 End: 09-14-2024 Lab Drop off Nicki C Dailyer [facility] Start: 09-14-2024 End: 09-14-2024 ambulatory Nicki C Bordner Facility:[facility] Start: 09-14-2024 End: 09-14-2024 Patient encounter procedure Nicki C Bordner [facility] Start: 08-27-2024 End: 08-27-2024 ambulatory Tammi L Ashok Facility:[facility] Start: 08-21-2024 ambulatory Tammi L Ashok Facility: [facility] Start: 08-15-2024 End: 08-15-2024 Emergency department patient visit [facility] Work Phone: Start: 06-12-2024 End: 06-12-2024 ambulatory OLIVA NORTHEIM Not Available Start: 06-12-2024 End: 06-12-2024 Office outpatient new 45 minutes Oliva Northeim PA Work Phone: [facility] Comment on above: Acne vulgaris (Prima ry Dx) Start: 06-12-2024 End: 06-12-2024 Bamboo flowsheet Oliva [facility] PA Work Phone: [facility] Start: 06-12-2024 End: 06-12-2024 Bamboo flowsheet Oliva [facility] PA Work Phone: [facility] Start: 05-16-2024 End: 05-16-2024 ambulatory GABE ALBARRAN Facility:[facility] Start: 05-16-2024 End: 05-16-2024 Patient encounter procedure GABE ALBARRAN [facility] Mittie Start: 02-13-2024 End: 02-13-2024 ambulatory AVERY MCLAIN Not Available Start: 01-24-2024 ambulatory Tammi L Ashok Facility: [facility] Start: 01-04-2024 End: 01-04-2024 ambulatory Tammi L Ashok Facility:[facility] Start: 11-29-2023 End: 11-29-2023 ambulatory FLAVIA WU Not Available Start: 11-29-2023 End: 11-29-2023 Office outpatient new 45 minutes Flavia Wu [employer] Work Phone: [facility] Comment on above: Influenza A (Primary Dx); Pharyngitis, unspecified etiology Start: 10-20-2023 End: 10-20-2023 ambulatory Tammi Pulido Facility:[facility] [place] Start: 10-20-2023 End: 10-20-2023 Patient encounter procedure Brigette Murcia [facility] Start: 08-24-2023 End: 08-24-2023 Emergency department patient visit Edmund Henriquez [facility] Start: 08-24-2023 End: 11-22-2023 Recurring Tammi Pulido [facility] Start: 08-09-2023 End: 08-09-2023 Patient encounter procedure Tammi Pulido [facility] Start: 07-06-2023 End: 07-06-2023 ambulatory Angeline Durbin Other [facility] Other Start: 07-06-2023 Office outpatient vi sit 15 minutes Angeline Durbin [facility] Start: 06-27-2023 End: 06-27-2023 ambulatory Zak Lorenz Other [facility] Other Start: 06-27-2023 Office outpatient ne w 20 minutes Zak Lorenz [facility] Start: 03-07-2023 End: 03-07-2023 Patient encounter procedure Jyotsna Jones [facility] Ganesh Start: 12-21-2022 End: 12-21-2022 Lab Drop off SARAN GOMEZ [facility] Start: 12-21-2022 End: 12-21-2022 Patient encounter procedure SARAN GOMEZ [facility] Start: 12-21-2022 End: 12-21-2022 Preprocedural examination done SARAN GOMEZ [facility] Start: 03-24-2022 Rx Renewal Referring Prov ider Unknown MN-Xcszlwzdsivyddca-[facility] [address] [facility] Work Phone: Start: 02-24-2022 NPV, Provider: Clark Thomas, Status: Pen, Time: 2:00 PM Referring Provider Unknown IF-Wbnzkiqvsocodyjt-Wh [facility] Work Phone: Start: 02-23-2022 Office outpatient ne w 45 minutes Referring Provider Unknown ZY-Vszibjiztlecrpli-Wz [facility] [facility] Work Phone: Start: 08-24-2019 End: 08-24-2019 Emergency department patient visit FABIEN REYES JR [facility] Start: 08-24-2019 End: 08-24-2019 Emergency department patient visit Fabien Reyes [facility] Comment on above: Abdominal pain, unsp ecified abdominal location (Primary Dx); Constipation, unspecified constipation type; Dysuria Start: 11-17-2017 End: 11-18-2017 Ambulatory FABIEN BUSTOS Facility:[facility] Start: 11-08-2017 End: 11-09-2017 Ambulatory FABIEN JENKINS BUSTOS Facility:[facility] Procedures Date Procedure Procedure Detail Performing Clinician Start: 08-15-2024 Plain chest X-ray Start: 11-29-2023 Iadna streptococcus group a amplified probe tq Avery Mclain DO Work Phone: Start: 11-29-2023 STATUS COVID-19/FLU Ant shirlene Mclain DO Work Phone: Start: 08-24-2019 Ct abdomen & pelvis w/contrast material FABIEN REYES JR Start: 08-24-2019 Ct abdomen & pelvis w/contrast material Elizabeth White Work Phone: Start: 08-24-2019 Urine test visual color cmprsn meths FABIEN REYES JR Start: 08-24-2019 Urinalysis microscopic only FABIEN ERIC JENKINS Start: 08-24-2019 Urnls dip stick/tabl et rgnt auto w/o microscopy FABIEN REYES JR Start: 08-24-2019 Assay of lactate MICHAE Nemesio REYES JR Start: 08-24-2019 Assay of lipase FABIEN REYES JR Start: 08-24-2019 Blood count complete auto&auto difrntl wbc FABIEN REYES JR Start: 08-24-2019 Comprehensive metabo lic panel FABIEN REYES JR Start: 08-24-2019 Urine test visual color cmprsn meths Elizabeth White Work Phone: Start: 08-24-2019 Urinalysis microscopic only Elizabeth White Work Phone: Start: 08-24-2019 Urnls dip stick/tabl et rgnt auto w/o microscopy Elizabeth [employer] Work Phone: Start: 08-24-2019 Assay of lactate Ivette Rodrigues Work Phone: Start: 08-24-2019 Assay of lipase Val Rodrigues Work Phone: Start: 08-24-2019 Blood count complete auto&auto difrntl wbc Val Rodrigues Work Phone: Start: 08-24-2019 Comprehensive metabo lic panel Val Rodrigues Work Phone: Surgical procedure Tammi Schw ab Plan of Treatment Date Care Activity Detail Author Start: 08-15-2024 Bacteria identified in Urine by Culture Urine Culture [facility] Start: 08-15-2024 Urine culture [facility] Start: 08-15-2024 End: 08-15-2024 Patient encounter procedure 08/15/2024 10:30 AM EDT Office Visit [facility] [address] [place] [address] Oliva Figueroa PA [address] [place] [address] [facility] Start: 06-24-2024 Influenza vaccination Influenza Vacc ine (#1) [facility] Start: 06-24-2019 Influenza vaccination Flu vaccine (# 1) [place], [place] Start: 2019 DTaP/Tdap/Td vaccine (1 - Tdap) DTaP/Tdap/Td vaccine (1 - Tdap) [place] Start: 2016 Chlamydia screen Chlamydia screen [place], [place] Start: 2015 HIV screen HIV screen [place], [place] Start: 2015 HPV vaccine (1 - Fem micah 3-dose series) HPV vaccine (1 - Female 3-dose series) [place], [place] Start: 2013 Varicella Vaccine (1 of 2 - 13+ 2-dose series) Varicella Vaccine (1 of 2 - 13+ 2-dose series) [place], [place] Patient Education [employer] Candy garcia, Adult ED [facility] Work Phone: Patient referral [facility] Work Phone: Immunizations Immunization Date Immunization Notes Care Provider Fa eloise 06-06-2018 meningococcal ACWY vaccine, unspecified formulation Brigette Murcia [facility] 05-28-2013 tetanus toxoid, redu dick diphtheria toxoid, and acellular pertussis vaccine, adsorbed Brigette Murcia [facility] 05-28-2004 DTaP, unspecified formulation Brigette Murcia [facility] 05-28-2004 measles, mumps and rubella virus vaccine Brigette Murcia [facility] 05-28-2004 poliovirus vaccine, unspecified formulation Brigette Murcia [facility] 08-02-2001 DTaP, unspecified formulation Brigette Murcia [facility] 08-02-2001 varicella virus vaccine Cassie mast Too [facility] 05-03-2001 measles, mumps and rubella virus vaccine Brigette Clark [facility] 05-03-2001 poliovirus vaccine, unspecified formulation Brigette Too [facility] 2000 DTaP, unspecified formulation Brigette Too [facility] 2000 DTaP, unspecified formulation Brigette Too [facility] 2000 poliovirus vaccine, unspecified formulation Brigette Too [facility] 2000 DTaP, unspecified formulation Brigette Too [facility] 2000 poliovirus vaccine, unspecified formulation Brigette Too [facility] Payers Date Payer Category Payer Self-pay 2024 Unknown [id number] 2022 Unknown 2018 Unknown BCBS [place] - [place] P PO xxxxxxxxxxxx 2018-Present [address] [place] [address] xxxxxxxxxxxx [id number] 2001 Unknown [id number] 2000 Unknown [id number] [id number] 9 2000 Unknown [id number] 2.16.840.1.499781.3.579.2.125 9 2000 Unknown [id number] 2.16.840.1.632644.3.579.2.125 9 2000 Unknown [id number] 2.16.840.1.626964.3.579.2.727 2000 Unknown [id number] 2.16.840.1.258285.3.579.2.727 2000 Unknown [id number] 2.16.840.1.591239.3.579.2.727 2000 Unknown [id number] 2.16.840.1.115213.3.579.2.727 2000 Unknown [id number] 2.16.840.1.338211.3.579.2.72 2000 Unknown [id number] 2.16.840.1.395816.3.579.2.727 2000 Unknown [id number] 2.16.840.1.664267.3.579.2.727 2000 Unknown [id number] 2.16.840.1.100070.3.579.2.727 2000 Unknown [id number] 2.16.840.1.917120.3.579.2.727 2000 Unknown [id number] 2.16.840.1.574058.3.579.2.727 2000 Unknown [id number] 2.16.840.1.259756.3.579.2.727 2000 Unknown [id number] 2.16.840.1.756130.3.579.2.727 2000 Unknown [id number] 2.16.840.1.844872.3.579.2.727 2000 Unknown [id number] 2.16.840.1.623652.3.579.2.727 2000 Unknown [id number] 2.16.840.1.403871.3.579.2.727 1966 Unknown [id number] 2.16.840.1.640206.3.579.2.204 Unknown [id number] 2.16.840.1.537000.3.579.2.531 Social History Date Type Detail Facility Start: 08-24-2019 End: 11-26-2024 Tobacco smoking status NHIS Never smoker [facility] Start: 08-24-2019 End: 11-29-2023 Alcohol intake Not Currently [facility] Start: 2000 Sex Assigned At Not on file [facility] [place] Tobacco smoking status Never [facility] Start: 11-29-2023 Tobacco use and exposure Smokeless tobacco non-user [facility] Start: 11-29-2023 End: 01-21-2024 Alcohol intake Lifetime non-drinker (finding) [facility] Start: 2000 Sex Assigned At Female F [facility] Start: 11-29-2023 End: 06-12-2024 History of Social function [facility] Sexual Orientation [facility] Start: 07-22-2021 Sex Female (finding) [facility] NEGATED: Highlighted row [facility] Functional Status Date Assessment Result Facility 11-26-2024 Functional Status N/A [facility] 05-16-2024 Functional Status N/A [facility] 08-24-2023 Functional Status N/A [facility] 03-07-2023 Functional Status N/A [facility] 12-21-2022 Functional Status N/A [facility] Clinical Notes 02-06-2021 to 02-13-2025 SEBAS Macias - 06/12/2024 3:00 PM Tom Wu NP - 11/29/2023 1:40 PM EST Note Date & Type Note Facility 02-13-2025 Evaluation + Plan note Diagnostic Tests PendingT3 Free 02/13/25 [facility] 09-16-2024 Note Microbiology PROCEDURE: Strep Screen Culture [R1] SOURCE: Throat BODY SITE: COLLECTED DATE/TIME: 09/14/2024 13:09 EST RECEIVED DATE/TIME: 09/14/2024 15:49 EST START DATE/TIME: 09/14/2024 15:49 EST FREE TEXT SOURCE: Bordner PILOT CONTROL OPERATOR-C, Carole Bordner PILOT CONTROL OPERATOR-C, Carole FINAL REPORTS Final Report [] Verified Date/Time: 09/16/2024 07:48 EST Streptococcus Group A screen negative Performing Locations R1: This test was performed at: [facility], [address] [place] [address], [id number] [place] [address], [facility] Comment on above: Performed By: #### [id number] #### [facility] [address] [place] [id number] 09-16-2024 Note Microbiology PROCEDURE: Strep Screen Culture [R1] SOURCE: Throat BODY SITE: COLLECTED DATE/TIME: 09/14/2024 13:09 EST RECEIVED DATE/TIME: 09/14/2024 15:49 EST START DATE/TIME: 09/14/2024 15:49 EST FREE TEXT SOURCE: Bordner PILOT CONTROL OPERATOR-C, Carole Bordner PILOT CONTROL OPERATOR-C, Carole FINAL REPORTS Final Report [] Verified Date/Time: 09/16/2024 07:48 EST Streptococcus Group A screen negative Performing Locations R1: This test was performed at: [facility], [address] [place] [address], [id number] [place] [address], [facility] Comment on above: Performed By: #### [id number] #### [facility] [address] [place] [id number] 09-14-2024 Hospital Discharge instructions Patient Education 09/14/2024 13:37:15 Otitis Media, Adult, Icqb-ek-Phqj Otitis Media, Adult Otitis media is a condition in which the middle ear is red and swollen (inflamed) and full of fluid. The middle ear is the part of the ear that contains bones for hearing as well as air that helps send sounds to the brain. The condition usually goes away on its own. What are the causes? This condition is caused by a blockage in the eustachian tube. This tube connects the middle ear to the back of the nose. It normally allows air into the middle ear. The blockage is caused by fluid or swelling. Problems that can cause blockage include: A cold or infection that affects the nose, mouth, or throat. Allergies. An irritant, such as tobacco smoke. Adenoids that have become large. The adenoids are soft tissue located in the back of the throat, behind the nose and the roof of the mouth. Growth or swelling in the upper part of the throat, just behind the nose (nasopharynx). Damage to the ear caused by a change in pressure. This is called barotrauma. What increases the risk? You are more likely to develop this condition if you: Smoke or are exposed to tobacco smoke. Have an opening in the roof of your mouth (cleft palate). Have acid reflux. Have problems in your body's defense system (immune system). What are the signs or symptoms? Symptoms of this condition include: Ear pain. Fever. Problems with hearing. Being tired. Fluid leaking from the ear. Ringing in the ear. How is this treated? This condition can go away on its own within 3 5 days. But if the condition is caused by germs (bacteria) and does not go away on its own, or if it keeps coming back, your doctor may: Give you antibiotic medicines. Give you medicines for pain. Follow these instructions at home: Take kdir-ykp-tuysfef and prescription medicines only as told by your doctor. If you were prescribed an antibiotic medicine, take it as told by your doctor. Do not stop taking it even if you start to feel better. Keep all follow-up visits. Contact a doctor if: You have bleeding from your nose. There is a lump on your neck. You are not feeling better in 5 days. You feel worse instead of better. Get help right away if: You have pain that is not helped with medicine. You have swelling, redness, or pain around your ear. You get a stiff neck. You cannot move part of your face (paralysis). You notice that the bone behind your ear hurts when you touch it. You get a very bad headache. Summary Otitis media means that the middle ear is red, swollen, and full of fluid. This condition usually goes away on its own. If the problem does not go away, treatment may be needed. You may be given medicines to treat the infection or to treat your pain. If you were prescribed an antibiotic medicine, take it as told by your doctor. Do not stop taking it even if you start to feel better. Keep all follow-up visits. This information is not intended to replace advice given to you by your health care provider. Make sure you discuss any questions you have with your health care provider. Document Revised: 01/18/2022 Document Reviewed: 01/18/2022 [employer] Patient Education 2023 [employer] 09/14/2024 13:37:09 Pharyngitis, Azrm-gr-Tirl Pharyngitis Pharyngitis is a sore throat (pharynx). This is when there is redness, pain, and swelling in your throat. Most of the time, this condition gets better on its own. In some cases, you may need medicine. What are the causes? An infection from a virus. An infection from bacteria. Allergies. What increases the risk? Being 5 24 years old. Being in crowded environments. These include: ?Daycares. ?Schools. ?Dormitories. Living in a place with cold temperatures outside. Having a weakened disease-fighting (immune) system. What are the signs or symptoms? Symptoms may vary depending on the cause. Common symptoms include: Sore throat. Tiredness (fatigue). Low-grade fever. Stuffy nose. Cough. Headache. Other symptoms may include: Glands in the neck (lymph nodes) that are swollen. Skin rashes. Film on the throat or tonsils. This can be caused by an infection from bacteria. Vomiting. Red, itchy eyes. Loss of appetite. Joint pain and muscle aches. Tonsils that are temporarily bigger than usual (enlarged). How is this treated? Many times, treatment is not needed. This condition usually gets better in 3 4 days without treatment. If the infection is caused by a bacteria, you may be need to take antibiotics. Follow these instructions at home: Medicines Take nxwu-ohf-tehfsmn and prescription medicines only as told by your doctor. If you were prescribed an antibiotic medicine, take it as told by your doctor. Do not stop taking the antibiotic even if you start to feel better. Use throat lozenges or sprays to soothe your throat as told by your doctor. Children can get pharyngitis. Do not give your child aspirin. Managing pain To help with pain, try: Sipping warm liquids, such as: ?Broth. ?Herbal tea. ?Warm water. Eating or drinking cold or frozen liquids, such as frozen ice pops. Rinsing your mouth (gargle) with a salt water mixture 3 4 times a day or as needed. ?To make salt water, dissolve 1 tsp (3 6 g) of salt in 1 cup (237 mL) of warm water. ?Do not swallow this mixture. Sucking on hard candy or throat lozenges. Putting a cool-mist humidifier in your bedroom at night to moisten the air. Sitting in the bathroom with the door closed for 5 10 minutes while you run hot water in the shower. General instructions Do not smoke or use any products that contain nicotine or tobacco. If you need help quitting, ask your doctor. Rest as told by your doctor. Drink enough fluid to keep your pee (urine) pale yellow. How is this prevented? Wash your hands often for at least 20 seconds with soap and water. If soap and water are not available, use hand dormitory keeper. Do not touch your eyes, nose, or mouth with unwashed hands. Wash hands after touching these areas. Do not share cups or eating utensils. Avoid close contact with people who are sick. Contact a doctor if: You have large, tender lumps in your neck. You have a rash. You cough up green, yellow-brown, or bloody spit. Get help right away if: You have a stiff neck. You drool or cannot swallow liquids. You cannot drink or take medicines without vomiting. You have very bad pain that does not go away with medicine. You have problems breathing, and it is not from a stuffy nose. You have new pain and swelling in your knees, ankles, wrists, or elbows. These symptoms may be an emergency. Get help right away. Call your local emergency services (911 in the .[place] Do not wait to see if the symptoms will go away. Do not drive yourself to the hospital. Summary Pharyngitis is a sore throat (pharynx). This is when there is redness, pain, and swelling in your throat. Most of the time, pharyngitis gets better on its own. Sometimes, you may need medicine. If you were prescribed an antibiotic medicine, take it as told by your doctor. Do not stop taking the antibiotic even if you start to feel better. This information is not intended to replace advice given to you by your health care provider. Make sure you discuss any questions you have with your health care provider. Document Revised: 01/06/2022 Document Reviewed: 01/06/2022 [employer] Patient Education 2023 [employer] Follow Up Care 09/14/2024 11:44:28 With:Tammi Braun FAM, MED Address:Unknown When: Unknown [facility] 09-14-2024 Evaluation + Plan note Diagnostic Tests PendingStrep Screen Culture 09/14/24 [facility] 09-14-2024 Note Patient Education ENT Otitis Media, Adult Otitis media is a condition in which the middle ear is red and swollen (inflamed) and full of fluid. The middle ear is the part of the ear that contains bones for hearing as well as air that helps send sounds to the brain. The condition usually goes away on its own. What are the causes? This condition is caused by a blockage in the eustachian tube. This tube connects the middle ear to the back of the nose. It normally allows air into the middle ear. The blockage is caused by fluid or swelling. Problems that can cause blockage include: ??? A cold or infection that affects the nose, mouth, or throat. ??? Allergies. ??? An irritant, such as tobacco smoke. ??? Adenoids that have become large. The adenoids are soft tissue located in the back of the throat, behind the nose and the roof of the mouth. ??? Growth or swelling in the upper part of the throat, just behind the nose (nasopharynx). ??? Damage to the ear caused by a change in pressure. This is called barotrauma. What increases the risk? You are more likely to develop this condition if you: ??? Smoke or are exposed to tobacco smoke. ??? Have an opening in the roof of your mouth (cleft palate). ??? Have acid reflux. ??? Have problems in your body's defense system (immune system). What are the signs or symptoms? Symptoms of this condition include: ??? Ear pain. ??? Fever. ??? Problems with hearing. ??? Being tired. ??? Fluid leaking from the ear. ??? Ringing in the ear. How is this treated? This condition can go away on its own within 3?5 days. But if the condition is caused by germs (bacteria) and does not go away on its own, or if it keeps coming back, your doctor may: ??? Give you antibiotic medicines. ??? Give you medicines for pain. Follow these instructions at home: ??? Take fdnx-hvu-yarrrrz and prescription medicines only as told by your doctor. ??? If you were prescribed an antibiotic medicine, take it as told by your doctor. Do not stop taking it even if you start to feel better. ??? Keep all follow-up visits. Contact a doctor if: ??? You have bleeding from your nose. ??? There is a lump on your neck. ??? You are not feeling better in 5 days. ??? You feel worse instead of better. Get help right away if: ??? You have pain that is not helped with medicine. ??? You have swelling, redness, or pain around your ear. ??? You get a stiff neck. ??? You cannot move part of your face (paralysis). ??? You notice that the bone behind your ear hurts when you touch it. ??? You get a very bad headache. Summary ??? Otitis media means that the middle ear is red, swollen, and full of fluid. ??? This condition usually goes away on its own. ??? If the problem does not go away, treatment may be needed. You may be given medicines to treat the infection or to treat your pain. ??? If you were prescribed an antibiotic medicine, take it as told by your doctor. Do not stop taking it even if you start to feel better. ??? Keep all follow-up visits. This information is not intended to replace advice given to you by your health care provider. Make sure you discuss any questions you have with your health care provider. Document Revised: 01/18/2022 Document Reviewed: 01/18/2022 [employer] Patient Education ? 2023 [employer]. Infectious Disease Pharyngitis Pharyngitis is a sore throat (pharynx). This is when there is redness, pain, and swelling in your throat. Most of the time, this condition gets better on its own. In some cases, you may need medicine. What are the causes? An infection from a virus. ??? An infection from bacteria. ??? Allergies. What increases the risk? Being 5?24 years old. ??? Being in crowded environments. These include: ? Daycares. ? Schools. ? Dormitories. ??? Living in a place with cold temperatures outside. ??? Having a weakened disease-fighting (immune) system. What are the signs or symptoms? Symptoms may vary depending on the cause. Common symptoms include: ??? Sore throat. ??? Tiredness (fatigue). ??? Low-grade fever. ??? Stuffy nose. ??? Cough. ??? Headache. Other symptoms may include: ??? Glands in the neck (lymph nodes) that are swollen. ??? Skin rashes. ??? Film on the throat or tonsils. This can be caused by an infection from bacteria. ??? Vomiting. ??? Red, itchy eyes. ??? Loss of appetite. ??? Joint pain and muscle aches. ??? Tonsils that are temporarily bigger than usual (enlarged). How is this treated? Many times, treatment is not needed. This condition usually gets better in 3?4 days without treatment. If the infection is caused by a bacteria, you may be need to take antibiotics. Follow these instructions at home: Medicines ??? Take aaxu-dcf-eutqmxv and prescription medicines only as told by your doctor. ??? If you were prescribed an antibioti (more content not included)... [facility] 06[facility]12[facility]24 History of Present illness Narrative Images from the original note were not included. Acne Location: face, chest, and back Duration: years Severity: mild Nature of acne: pimples, blackheads, scars Modifying factors: worse during menses Associated Factors: combination Treatments used in the past: OTC acne products Current treatment: inky list face wash and moisturizer, glycolic acid exfoliating New patient All pertinent medical history, medications, and allergies were reviewed. General Exam: alert , oriented to person, place, and time , normal affect, well appearing Unaccompanied A focused exam completed based on patient reported problems, see below: 1. Acne vulgaris Chest (Upper Torso, Anterior), Head - Anterior (Face), Torso - Posterior (Back) Scattered comedones and inflammatory pustules. Flaring today The patient was counseled that it may take up to 2-3 months to notice significant improvement of acne. The use of non-comedogenic cleansers and moisturizers was recommended. Acne treatment plan given today. May continue use of glycolic acid exfoliant 1-2 times were week. Start Doxycycline 50mg BID with food to avoid stomach upset. Also discussed sun protection while on this medicine. Patient has tried Differin gel in the past. She tolerated it well but continues to have break outs. Start tretinoin 0.025% cream once daily at night. Apply a pea-sized amount over the entire face and use every other night if skin becomes too dry. Avoid while on these medications, pt denies current /plans to become . Has copper IUD. Follow up in 2 months. Related Medications doxycycline (Adoxa) 50 MG tablet Take 1 tablet (50 mg) by mouth in the morning and 1 tablet (50 mg) before bedtime. tretinoin (Retin-A) 0.025 % cream Apply thin layer to face at bedtime Next Visit: 2 months documented in this encounter [facility] 11-29-2023 History of Present illness Narrative HPI: Historian of HPI: patient Hansa Arredondo is a 23 y.o. female who presents today to the Urgent Care with the following complaints and denials which have been present for 3 day(s) pt states she has been vomiting which started this morning pt is not able to keep any fluids or solids down. Pt denies any diarrhea. C/O Denies Symptom Comments [] [x] Runny Nose [] [x] Difficulty Swallowing [x] [] Sore Throat Exposed to strep X3 days [x] [] Cough Wet cough [x] [] Ear Pain Bilateral ear pain [x] [] Fever [x] [] Chills [x] [] Nasal Congestion [x] [] Myalgia [] [x] Sinus Pain [x] [] Sinus Pressure X3 days Additional Comments: pt has not taken any OTC medications Denies or . ROS: A complete system ROS was performed and negative aside from the pertinent positives noted in the HPI and PE. IH Testing: The following tests were performed PCR Strep Test Rapid Flu Test Rapid COVID Test SEE TEST(S) ORDERS FOR RESULTS Examination General Examination: General Examination: in no acute distress, well developed, well nourished Head: normocephalic, atraumatic Eyes: no discharge Ears: BOTH EARS canals normal. TM with mild erythema bilat. Nose: nares patent, sinuses nontender bilaterally clear nasal discharge bilat. Oral Cavity: mucosa moist Throat: pharynx with erythema and PND. No trismus, muffled voice, drooling or protrusion of soft palate. Uvula midline Neck/Thyroid: neck supple, trachea midline Lymph Nodes: no cervical adenopathy Skin: warm and dry Heart: S1, S2 normal, regular rate and rhythm, no S3, S4, no murmurs, rubs, gallops Lungs: clear anteriorly and posteriorly, clear to auscultation bilaterally, good air movement, no wheezes, rales, rhonchi Chest: normal shape and expansion, normal anteroposterior (AP) diameter Psych: alert, oriented. 1. Influenza A Rapid strep and covid neg. Rapid flu pos for A. Supportive care at this time. Start tamiflu -see rx, discussed need to start today to be effective. Immediate eval if new, worsening or warning s/s otherwise follow up with PCP over next 5-7 days for recheck - oseltamivir (Tamiflu) 75 MG capsule; Take 1 capsule (75 mg) by mouth in the morning and 1 capsule (75 mg) before bedtime. Do all this for 5 days. Dispense: 10 capsule; Refill: 0 2. Pharyngitis, unspecified etiology See 1. - STREP DNA PROBE - STATUS COVID-19/FLU documented in this encounter [facility] 08-24-2023 Hospital Discharge instructions Patient Education 08/24/2023 20:29:09 Suicidal Feelings: How to Help Yourself Suicidal Feelings: How to Help Yourself Suicide is when you end your own life. Suicidal ideation includes expressing thoughts about, or a preoccupation with, ending your own life. There are many things you can do to help yourself feel better when struggling with these feelings. Many services and people are available to support you and others who struggle with similar feelings. If you ever feel like you may hurt yourself or others, or have thoughts about taking your own life, get help right away. To get help: Go to your nearest emergency department. Call your local emergency services (911 in the [place] Call the [facility] and human services helpline (211 in the [place] Call or text a suicide hotline to speak with a trained counselor. The following suicide hotlines are available in the [place]: ?4-763-543-TALK ( or 182 in the [place] ?9-413-SMXYOGK ( ). ?Text 922613. This is the Crisis Text Line in the [place] ? . This is a hotline for Polish speakers. ? . This is a hotline for TTY users. ?1-552-8-U-JEOVANY ( ). This is a hotline for lesbian, carmona, bisexual, transgender, or questioning youth. ?For a list of hotlines in [place], visit suicide.org/hotlines/internatio nal/hqpang-igokneu-mhvrueox.htm l Contact a crisis center or a local suicide prevention center. To find a crisis center or suicide prevention center: ?Call your local hospital, clinic, community service organization, mental health center, social service provider, or health department. Ask for help with connecting to a crisis center. ?For a list of crisis centers in the [place], visit: suicidepreventionlifeline.org ?For a list of crisis centers in [place], visit: suicideprevention.ct How to help yourself feel better Promise yourself that you will not do anything bad or extreme when you have suicidal feelings. Remember the times you have felt hopeful. ?Many people have gotten through suicidal thoughts and feelings, and you can too. ?If you have had these feelings before, remind yourself that you can get through them again. Let family, friends, teachers, or counselors know how you are feeling. Do not separate yourself from those who care about you and want to help you. ?Talk with someone every day, even if you do not feel like talking to anyone or being with other people. ?Vhqh-jw-ztni conversation is best to help them understand your feelings. Contact a mental health care provider and work with this person regularly. Make a safety plan that you can follow during a crisis. ?Include phone numbers of suicide prevention hotlines, mental health professionals, and trusted friends and family members you can call during an emergency. ?Save these numbers on your phone. If you are thinking of taking a lot of medicine, give your medicine to someone who can give it to you as prescribed. ?If you are on antidepressants and are concerned you will overdose, tell your health care provider so that he or she can give you safer medicines. Try to stick to your routines and follow a schedule every day. Make self-care a priority. Make a list of realistic goals, and cross them off when you achieve them. Accomplishments can give you a sense of worth. Wait until you are feeling better before doing things that you find difficult or unpleasant. Do things that you have always enjoyed to take your mind off your feelings. ?Try reading a book, or listening to or playing music. ?Spending time outside, in nature, may help you feel better. Follow these instructions at home: Visit your primary health care provider every year for a physical and a mental health checkup. Take mknw-wlb-asoedoy and prescription medicines only as told by your health care provider. ?Ask your health care provider about the possible side effects of any medicines you are taking. ?Ask your health care provider about whether suicidal ideation is a possible side effect of any of your medicines. Learn about suicidal ideation and what increases the risk for the development of suicidal thoughts. Eat a well-balanced diet, and eat regular meals. Get plenty of rest. Exercise if you are able. Just 30 minutes of exercise each day can help you feel better. Keep your living space well lit. Do not use alcohol or drugs. Remove these substances from your home. General recommendations Remove weapons, poisons, knives, and other deadly items from your home. Work with a mental health care provider as needed. When you are feeling well, write yourself a letter with tips and support that you can read when you are not feeling well. Remember that life's difficulties can be sorted out with help. Conditions can be treated, and you can learn behaviors and ways of thinking that will help you. ?Work with your health care provider or counselor to learn ways of coping with your thoughts and feelings. Where to find more information National Suicide Prevention Lifeline: www.suicidepreventionlifeline.o Hopeline: www.hopeline.[employer] for Suicide Prevention: www.afsp.org The [employer]ov[employer] Project (for lesbian, carmona, bisexual, transgender, or questioning youth): www.thetrevorproject.org National [place] of Mental Health: www.nimh.nih.gov/health/topics/ suicide-prevention Suicide Prevention Resources: afsp.org/fauymqw-brgeitasmq-xyw ources Contact a health care provider if: You feel as though you are a burden to others. You feel agitated, angry, vengeful, or have extreme mood swings. You have withdrawn from family and friends. You are frequently using drugs or alcohol. Get help right away if: You are talking about suicide or wishing to . You start making plans for how to commit suicide. You feel that you have no reason to live. You start making plans for putting your affairs in order, saying goodbye, or giving your possessions away. You feel guilt, shame, or unbearable pain, and it seems like there is no way out. You are engaging in risky behaviors that could lead to . If you have any of these thoughts or symptoms, get help right away: Go to your nearest emergency department or crisis center. Call emergency services (911 in the [place] Call or text a suicide crisis helpline. Summary Suicide is when you take your own life. Suicidal feelings are thoughts about ending your own life. Promise yourself that you will not do anything bad or extreme when you have suicidal feelings. Let family, friends, teachers, or counselors know how you are feeling. Get help right away if you start making plans for how to commit suicide. This information is not intended to replace advice given to you by your health care provider. Make sure you discuss any questions you have with your health care provider. Document Revised: 05/06/2022 Document Reviewed: 02/18/2022 [employer] Patient Education 2022 [employer] 08/24/2023 20:29:08 Nausea and Vomiting, Adult, Sypg-tu-Jcht Nausea and Vomiting, Adult Nausea is feeling that you have an upset stomach and that you are about to vomit. Vomiting is when food in your stomach forcefully comes out of your mouth. Vomiting can make you feel weak. If you vomit, or if you are not able to drink enough fluids, you may not have enough water in your body (get dehydrated). If you do not have enough water in your body, you may: Feel tired. Feel thirsty. Have a dry mouth. Have cracked lips. Pee (urinate) less often. Older adults and people with other diseases or a weak body defense system (immune system) are at higher risk for not having enough water in the body. If you feel like you may vomit or you vomit, it is important to follow instructions from your doctor about how to take care of yourself. Follow these instructions at home: Watch your symptoms for any changes. Tell your doctor about them. Eating and drinking Take an ORS (oral rehydration solution). This is a drink that is sold at pharmacies and stores. Drink clear fluids in small amounts as you are able, such as: ?Water. ?Ice chips. ?Fruit juice that has water added (diluted fruit juice). ?Low-calorie sports drinks. Eat bland, mhxm-si-spoczg foods in small amounts as you are able, such as: ?Bananas. ?Applesauce. ?Rice. ?Low-fat (lean) meats. ?Welch. ?Crackers. Avoid drinking fluids that have a lot of sugar or caffeine in them. This includes energy drinks, sports drinks, and soda. Avoid alcohol. Avoid spicy or fatty foods. General instructions Take ryla-ohc-zvfgqjd and prescription medicines only as told by your doctor. Drink enough fluid to keep your pee (urine) pale yellow. Wash your hands often with soap and water for at least 20 seconds. If you cannot use soap and water, use hand dormitory keeper. Make sure that everyone in your home washes their hands well and often. Rest at home until you feel better. Watch your condition for any changes. Take slow and deep breaths when you feel like you may vomit. Keep all follow-up visits. Contact a doctor if: Your symptoms get worse. You have new symptoms. You have a fever. You cannot drink fluids without vomiting. You feel like you may vomit for more than 2 days. You feel light-headed or dizzy. You have a headache. You have muscle cramps. You have a rash. You have pain while peeing. Get help right away if: You have pain in your chest, neck, arm, or jaw. You feel very weak or you faint. You vomit again and again. You have vomit that is bright red or looks like black coffee grounds. You have bloody or black poop (stools) or poop that looks like tar. You have a very bad headache, a stiff neck, or both. You have very bad pain, cramping, or bloating in your belly (abdomen). You have trouble breathing. You are breathing very quickly. Your heart is beating very quickly. Your skin feels cold and clammy. You feel confused. You have signs of losing too much water in your body, such as: ?Dark pee, very little pee, or no pee. ?Cracked lips. ?Dry mouth. ?Sunken eyes. ?Sleepiness. ?Weakness. These symptoms may be an emergency. Get help right away. Call 911. Do not wait to see if the symptoms will go away. Do not drive yourself to the hospital. Summary Nausea is feeling that you have an upset stomach and that you are about to vomit. Vomiting is when food in your stomach comes out of your mouth. Follow instructions from your doctor about eating and drinking. Take aljc-ocq-egerslh and prescription medicines only as told by your doctor. Contact your doctor if your symptoms get worse or you have new symptoms. Keep all follow-up visits. This information is not intended to replace advice given to you by your health care provider. Make sure you discuss any questions you have with your health care provider. Document Revised: 04/16/2022 Document Reviewed: 04/16/2022 [employer] Patient Education 2022 [employer] Follow Up Care 08/24/2023 15:54:49 With:SARAN GOMEZ CNP Address: [address] [place] [address] When:08/27/2023 [facility] 07-06-2023 Evaluation note Encounter Date Diagnosis Assessment Notes Jun, Sore throat (ICD-10 - J02.9) Jun, Acute sinusitis (ICD-10 - J01.90) testing is negative today in clinic. low suspicion for bacterial infection at this time. rx sent, take as directed. continue with otc flonase. may use tylenol for breakthrough pain. recommended hot steam baths and/or cool mist humidifier. push rest/fluids. reinforced universal infection control protocols and good hand hygiene for infection control. pt education and anticipatory guidance provided on viral vs bacterial infection progression. immediate eval if warning s/s of intractable fevers, respir distress or other emergent symptoms. otherwise f/u with PCP if febrile or new/worsening s/s. [facility] Other 09-04-2023 Evaluation note* Encounter Date Diagnosis Assessment Notes Treatment Notes Treatment Clinical Notes Jun, Cough (ICD-10 - R05.9) Jun, Acute non-recurrent pansinusitis (ICD-10 - J01.40) Sinus infections can be triggeredby a secondary infection; usually a viral URI or even seasonal allergies. Take medications as directed. Use saline nasal spray prior to presciption nasal spray. Complete all doses of medication even if you start to feel better. Symptoms should improve during treatment period. Follow up with primary care provider if no improvement of symptoms occur by end of treatment. [facility] Other 05-15-2023 Hospital Discharge instructions Follow Up Care 03/07/2023 11:31:59 With:Jyotsna Jones PA-C Address: [address] [place] [phone] When:Within 1 Month(s) [facility] G[facility]h 02-28-2023 Evaluation + Plan note Diagnostic Tests Pending * Basic Metabolic Panel 12/21/22 [facility]02[facility]23 Hospital Discharge instructions Patient Education 12/21/2022 08:39:44 Health Maintenance, Female Health Maintenance, Female Adopting a healthy lifestyle and getting preventive care are important in promoting health and wellness. Ask your health care provider about: The right schedule for you to have regular tests and exams. Things you can do on your own to prevent diseases and keep yourself healthy. What should I know about diet, weight, and exercise? Eat a healthy diet Eat a diet that includes plenty of vegetables, fruits, low-fat dairy products, and lean protein. Do not eat a lot of foods that are high in solid fats, added sugars, or sodium. Maintain a healthy weight Body mass index (BMI) is used to identify weight problems. It estimates body fat based on height and weight. Your health care provider can help determine your BMI and help you achieve or maintain a healthy weight. Get regular exercise Get regular exercise. This is one of the most important things you can do for your health. Most adults should: Exercise for at least 150 minutes each week. The exercise should increase your heart rate and make you sweat (moderate-intensity exercise). Do strengthening exercises at least twice a week. This is in addition to the moderate-intensity exercise. Spend less time sitting. Even light physical activity can be beneficial. Watch cholesterol and blood lipids Have your blood tested for lipids and cholesterol at 20 years of age, then have this test every 5 years. Have your cholesterol levels checked more often if: Your lipid or cholesterol levels are high. You are older than 40 years of age. You are at high risk for heart disease. What should I know about cancer screening? Depending on your health history and family history, you may need to have cancer screening at various ages. This may include screening for: Breast cancer. Cervical cancer. Colorectal cancer. Skin cancer. Lung cancer. What should I know about heart disease, diabetes, and high blood pressure? Blood pressure and heart disease High blood pressure causes heart disease and increases the risk of stroke. This is more likely to develop in people who have high blood pressure readings, are of descent, or are overweight. Have your blood pressure checked: ?Every 3 5 years if you are 18 39 years of age. ?Every year if you are 40 years old or older. Diabetes Have regular diabetes screenings. This checks your fasting blood sugar level. Have the screening done: Once every three years after age 40 if you are at a normal weight and have a low risk for diabetes. More often and at a younger age if you are overweight or have a high risk for diabetes. What should I know about preventing infection? Hepatitis B If you have a higher risk for hepatitis B, you should be screened for this virus. Talk with your health care provider to find out if you are at risk for hepatitis B infection. Hepatitis C Testing is recommended for: Everyone born from 1945 through 1965. Anyone with known risk factors for hepatitis C. Sexually transmitted infections (STIs) Get screened for STIs, including gonorrhea and chlamydia, if: ?You are sexually active and are younger than 24 years of age. ?You are older than 24 years of age and your health care provider tells you that you are at risk for this type of infection. ?Your sexual activity has changed since you were last screened, and you are at increased risk for chlamydia or gonorrhea. Ask your health care provider if you are at risk. Ask your health care provider about whether you are at high risk for HIV. Your health care providermay recommend a prescription medicine to help prevent HIV infection. If you choose to take medicineto prevent HIV, you should first get tested for HIV. You should then be tested every 3 months for as long as you are taking the medicine. If you are about to stop having your period (premenopausal) and you may become , seek counseling before you get . Take 400 to 800 micrograms (mcg) of folic acid every day if you become . Ask for control (contraception) if you want to prevent . Osteoporosis and menopause Osteoporosis is a disease in which the bones lose minerals and strength with aging. This can resultin bone fractures. If you are 65 years old or older, or if you are at risk for osteoporosis and fractures, ask your health care provider if you should: Be screened for bone loss. Take a calcium or vitamin D supplement to lower your risk of fractures. Be given hormone replacement therapy (HRT) to treat symptoms of menopause. Follow these instructions at home: Lifestyle Do not use any products that contain nicotine or tobacco, such as cigarettes, e- cigarettes, and chewing tobacco. If you need help quitting, ask your health care provider. Do not use street drugs. Do not share needles. Ask your health care provider for help if you need support or information about quitting drugs. Alcohol use Do not drink alcohol if: ?Your health care provider tells you not to drink. ?You are , may be , or are planning to become . If you drink alcohol: ?Limit how much you use to 0 1 drink a day. ?Limit intake if you are . Be aware of how much alcohol is in your drink. In the [place] one drink equals one 12 oz bottle of beer (355 mL), one 5 oz glass of wine (148 mL), or one 1 oz glass of hard liquor (44 mL). General instructions Schedule regular health, dental, and eye exams. Stay current with your vaccines. Tell your health care provider if: ?You often feel depressed. ?You have ever been abused or do not feel safe at home. Summary Adopting a healthy lifestyle and getting preventive care are important in promoting health and wellness. Follow your health care provider's instructions about healthy diet, exercising, and getting tested or screened for diseases. Follow your health care provider's instructions on monitoring your cholesterol and blood pressure. This information is not intended to replace advice given to you by your health care provider. Make sure you discuss any questions you have with your health care provider. Document Released: 04/24/2012 Document Revised: 10/03/2019 Document Reviewed: 10/03/2019 [employer] Patient Education 2020 [employer] 12/21/2022 08:39:39 General Anesthesia, Adult General Anesthesia, Adult General anesthesia is the use of medicines to make a person go to sleep (unconscious) for a medical procedure. General anesthesia must be used for certain procedures, and is often recommended for procedures that: Last a long time. Require you to be still or in an unusual position. Are major and can cause blood loss. The medicines used for general anesthesia are called general anesthetics. As well as making you unconscious for a certain amount of time, these medicines: Prevent pain. Control your blood pressure. Relax your muscles. Tell a health care provider about: Any allergies you have. All medicines you are taking, including vitamins, herbs, eye drops, creams, and lgru-foa-svzsfmj medicines. Any problems you or family members have had with anesthetic medicines. Types of anesthetics you have had in the past. Any blood disorders you have. Any surgeries you have had. Any medical conditions you have. Any recent upper respiratory, chest, or ear infections. Any history of: ?Heart or lung conditions, such as heart failure, sleep apnea, asthma, or chronic obstructive pulmonary disease (COPD). ? service. ?Depression or anxiety. Any tobacco or drug use, including marijuana or alcohol use. Whether you are or may be . What are the risks? Generally, this is a safe procedure. However, problems may occur, including: Allergic reaction. Lung and heart problems. Inhaling food or liquid from the stomach into the lungs (aspiration). Nerve injury. Dental injury. Air in the bloodstream, which can lead to stroke. Extreme agitation or confusion (delirium) when you wake up from the anesthetic. Waking up during your procedure and being unable to move. This is rare. These problems are more likely to develop if you are having a major surgery or if you have an advanced or serious medical condition. You can prevent some of these complications by answering all of your health care provider's questions thoroughly and by following all instructions before your procedure. General anesthesia can cause side effects, including: Nausea or vomiting. A sore throat from the breathing tube. Hoarseness. Wheezing or coughing. Shaking chills. Tiredness. Body aches. Anxiety. Sleepiness or drowsiness. Confusion or agitation. What happens before the procedure? Staying hydrated Follow instructions from your health care provider about hydration, which may include: Up to 2 hours before the procedure you may continue to drink clear liquids, such as water, clear fruit juice, black coffee, and plain tea. Eating and drinking restrictions Follow instructions from your health care provider about eating and drinking, which may include: 8 hours before the procedure stop eating heavy meals or foods such as meat, fried foods, or fatty foods. 6 hours before the procedure stop eating light meals or foods, such as toast or cereal. 6 hours before the procedure stop drinking milk or drinks that contain milk. 2 hours before the procedure stop drinking clear liquids. Medicines Ask your health care provider about: Changing or stopping your regular medicines. This is especially important if you are taking diabetes medicines or blood thinners. Taking medicines such as aspirin and ibuprofen. These medicines can thin your blood. Do not take these medicines unless your health care provider tells you to take them. Taking hfvr-gry-dppepii medicines, vitamins, herbs, and supplements. Do not take these during the week before your procedure unless your health care provider approves them. General instructions Starting 3 6 weeks before the procedure, do not use any products that contain nicotine or tobacco, such as cigarettes and e-cigarettes. If you need help quitting, ask your health care provider. If you brush your teeth on the morning of the procedure, make sure to spit out all of the toothpaste. Tell your health care provider if you become ill or develop a cold, cough, or fever. If instructed by your health care provider, bring your sleep apnea device with you on the day of your surgery (if applicable). Ask your health care provider if you will be going home the same day, the following day, or after alonger hospital stay. ?Plan to have someone take you home from the hospital or clinic. ?Plan to have a responsible adult care for you for at least 24 hours after you leave the hospital or clinic. This is important. What happens during the procedure? You will be given anesthetics through both of the following: ?A mask placed over your nose and mouth. ?An IV in one of your veins. You may receive a medicine to help you relax (sedative). After you are unconscious, a breathing tube may be inserted down your throat to help you breathe. This will be removed before you wake up. An anesthesia specialist will stay with you throughout your procedure. He or she will: ?Keep you comfortable and safe by continuing to give you medicines and adjusting the amount of medicine that you get. ?Monitor your blood pressure, pulse, and oxygen levels to make sure that the anesthetics do not cause any problems. The procedure may vary among health care providers and hospitals. What happens after the procedure? Your blood pressure, temperature, heart rate, breathing rate, and blood oxygen level will be monitored until the medicines you were given have worn off. You will wake up in a recovery area. You may wake up slowly. If you feel anxious or agitated, you may be given medicine to help you calm down. If you will be going home the same day, your health care provider may check to make sure you can walk, drink, and urinate. Your health care provider will treat any pain or side effects you have before you go home. Do not drive for 24 hours if you were given a sedative. Summary General anesthesia is used to keep you still and prevent pain during a procedure. It is important to tell your health care provider about your medical history and any surgeries you have had, and previous experience with anesthesia. Follow your health care provider's instructions about when to stop eating, drinking, or taking certain medicines before your procedure. Plan to have someone take you home from the hospital or clinic. This information is not intended to replace advice given to you by your health care provider. Make sure you discuss any questions you have with your health care provider. Document Released: 01/16/2009 Document Revised: 02/27/2019 Document Reviewed: 05/26/2018 [employer] Patient Education 2019 [employer] Follow Up Care 12/20/2022 14:23:14 With:SARAN GOMEZ CNP Address: [address] [place] [address] When: Unknown [facility] Mittie 05-03-2022 Chief complaint Narrative - Reported* An interactive audio and video telecommunication system which permits real time communications between the patient (at the originating site) and provider (at the distant site) was utilized to providethis telehealth service. * Verbal consent was requested and obtained from HANSA ARREDONDO on this date, 02/23/2022 11:00 AM , for atelehealth visit. [place] [id number] [facility] Work Phone: [phone]) 914-637305-03-2022 History of Present illness Narrative* Hansa Arredondo is a 21 year old with a PMH of depression. * She requests an appointment today for chronic nausea. For about 6-7 years she has had constant nausea, abdominal pain, cramping. She has had a prior colonoscopy in 2019, in [address] scan andthen she has had US and blood work. All of the tests were negative. * She reports nausea, this is daily, this is intermittent, random. She denies aggravating or alleviating factors. Has nausea with and without eating. She uses emotorol and nauseen and these sort of help. * She also reports cramping and pain, lower abdomen in the center and sometimes on the left side. Shehas IBS and has a BM once every 3 days. * She denies rectal bleeding, diarrhea, fevers, weight loss, dysphagia, odynophagia, +acid reflux about 3/7 days. She does not use anything for that. She denies vomiting. SHe has tried Benefiber and MiraLAX * Social Hx: Denies tobacco use, alcohol use, drug use, denies marijuana use * Family Hx: She denies CRC, GI cancers, IBD, celiac, Anderson's esophagus [id number] Work Phone: [phone]) 358-280204-16-2021 NoteHNO ID: [id number] Author: Fabien Vasquez Service: ? Author Type: Physician Type: Progress Notes Filed: 02/06/2021 11:13 AM Note Text: REASON FOR CONSULT: Abdominal Pain, Nausea, and trouble eating REQUESTING PHYSICIAN: SELF Phone: N/A Fax: Assessment ASSESSMENT AND PLAN It took patient 1 hour and [address] to my office today. Patient recently started on an anti-depressant and patient d/c prochlorperazine because of a potential interaction. Patient sees a psychiatrist. This is a new physician to the patient. Patient was given various medicines by prior GI but these were not helpful. Patient encouraged to continue with psyche. Patient will ask psyche to call me.(Fabien Whitmore MD) Patient to re-engage with his primary physician, Dr. Reyes. Patient aware that I would be pleased to discuss case with him also. No f/u with me arranged. Note Faxed to PCP. HPI: Ms. Arredondo is a 20 year old female who presents for Abdominal Pain, Nausea, and trouble eating. I saw patient virtually on 06/16/2020 with years of unexplained abd pain and nausea. Her sx's have not changed. She has constipation, diarrhea, abd pain, INGRAM's, fatigue and lightheadedness and loss of appetite. No dysphagia. No GI bleeding. No fever. No CP. No back pain. She has lost wt but wt is steady now. I had seen patient as a 2nd opinion. Patient had been under the care of a GI for the past 2 yrs or so. Add'l hx can be found in my prior note. Patient had colonoscopy 2017 and patient told WNL. Neg for Celiac/IBD/Colon Ca PAST MEDICAL HISTORY: History reviewed. No pertinent past medical history. PAST SURGICAL HISTORY: History reviewed. No pertinent surgical history. FAMILY HISTORY: FAMILY HISTORY Problem Relation Age of Onset - Colon Polyps No Family History - Colon Cancer No Family History SOCIAL HISTORY: Social History Tobacco Use - Smoking status: Never Smoker - Smokeless tobacco: Never Used Substance Use Topics - Alcohol use: Not on file - Drug use: Not on file MEDICATIONS: venlafaxine ER (EFFEXOR XR) 37.5 mg 24 hr capsule Take 37.5 mg by mouth. CURRENT ALLERGIES: Allergies As of Date: 02/06/2021 Allergen Noted Reaction DAIRY AID [LACTASE] 02/06/2021 Intolerance Fully Assessed 02/06/2021 Review of Systems: Gastrointestinal: Negative for-vomiting, heartburn, food sticking in throat, painful swallowing, vomiting blood, black stool and red blood in stool. Positive for-nausea, abdominal pain, constipation, diarrhea, loss of appetite, early satiety (feeling full fast) and bloating. Constitutional: Negative for-recent weight gain and fever . Positive for-recent weight loss # of pounds 5 and fatigue. HEENT: Negative for-Sore throat and hoarseness. Positive for-none. Cardiovascular: Negative for-abnormal heart rhythm, chest pain and palpitations. Positive for-none. Respiratory: Negative for-cough, shortness of breath at rest and wheezing. Positive for-shortness of breath on exertion. Genitourinary: Negative for-frequent urination, kidney failure/dialysis and painful urination. Positive for-none. Neurological: Negative for-seizures. Positive for-headaches. Dermatology: Negative for-RASH. Positive for-none. Musculoskeletal: Negative for-joint pain and arthritis. Positive for-none. Psychiatric: Negative for-dementia. Positive for-depression and anxiety. Where do you currently reside? Independently Are you taking any blood thinners? No I have confirmed and edited as necessary, the PFSH and ROS obtained by others. PHYSICAL EXAM: BP 113/65 Pulse 87 Resp 16 Ht 167.6 cm (5' 6 ) Wt 54.4 kg (120 lb) BMI 19.37 kg/m? General appearance: Well appearing, alert, in no acute distress, well-hydrated, well nourished. Abdomen: Abdomen soft, non-tender. Bowel sounds normal. DATA: Diagnostic tests reviewed for today's visit: 12/11/10 US Normal ? 11/08/17 US Normal ? 11/17/17 HIDA Normal 2018 Reportedly neg Colonoscopy ? 08/24/19 CAT No Acute Findings ? 08/24/19 [facility] No data available for this section [facility] Evaluation + Plan note Future Appointments Appointment Date:04/05/2023 09:40:00 AM Scheduled Provider:Jyotsna Jones PA-C Location:[facility] Appointment Type:[facility] Evaluation + Plan note Future Appointments Appointment Date:08/17/2023 08:20:00 AM Scheduled Provider:Tammi Braun [facility]ments Appointment Date:11/28/2024 08:40:00 AM Scheduled Provider:Tammi Braun Location:[facility] Appointment Type:[facility] Evaluation + Plan note Future Appointments Appointment Date:02/11/2025 10:40:00 AM Scheduled Provider:Tammi Braun Location:[facility] Appointment Type:[facility] Evaluation note* Diagnosis Influenza A- Primary Influenza with other respiratory manifestations Pharyngitis, unspecified etiology [facility] Work Phone: Evaluation note* Diagnosis Acne vulgaris- Primary Other acne [facility] No data available for this section [facility] No data available for this section [facility] Summary Purpose Family History No Family History Records FoundNo Family History Records FoundNo Family History Records FoundNo Family History Records Found No data available for this section No data available for this section No data available for this section No data available for this section No data available for this section No Family History Records FoundNo Family History Records Found No data available for this section No data available for this section No Family History Records FoundNo Family History Records Found No data available for this section No data available for this section No data available for this section No data available for this section No data available for this section No Family History Records FoundNo Family History Records FoundNo Family History Records FoundNo Family History Records FoundNo Family History Records FoundNo Family History Records FoundNo Family History Records FoundNo Family History Records FoundNo Family History Records FoundNo Family History Records FoundNo Family History Records Found Advance Directives No Advanced Directives Records FoundDocuments on File Type Date Recorded Patient Measurement Superintendent Expl anation Advance Directives and Living Will Power of Right Of Way Maintenance Supervisor Advance Directive Response Recorded Date/ Time Advance Directives No August 15, 2024 10:38am Discharge Instructions * Instructions* Elizabeth White APRN - TEXTILE CONSERVATOR - 08/24/2019 Drink plenty of fluids. Return for any new, changing, worsening symptoms or concerns * Attachments The following attachments cannot be sent through Care Everywhere. * Dysuria (Barbadian) * Constipation (Barbadian) * Abdominal Pain (Barbadian) documented in this encounter Assessments Diagnosis Abdominal pain, unspecified abdominal location- Primary Constipation, unspecified constipation type Dysuria Chief Complaint and Reason for Visit Chief Complaint chest pain Additional Source Comments INFORMATION SOURCE (unrecogn ized section and content) DATE CREATED AUTHOR 04/17/2018 [facility] DATE CREATED AUTHOR AUTHOR'S ORGANIZ ATION 08/27/2019 [facility] DATE CREATED AUTHOR AUTHOR'S ORGANIZ ATION 12/18/2021 [facility] DATE CREATED AUTHOR AUTHOR'S ORGANIZ ATION 02/25/2022 [employer] DATE CREATED AUTHOR AUTHOR'S ORGANIZ ATION 06/14/2024 [facility] EPIC DATE CREATED AUTHOR AUTHOR'S ORGANIZ ATION 08/26/2024 [facility] DATE CREATED AUTHOR AUTHOR'S ORGANIZ ATION 09/17/2024 [employer] [facility] DATE CREATED AUTHOR AUTHOR'S ORGANIZ ATION 09/18/2024 [place] [facility] DATE CREATED AUTHOR AUTHOR'S ORGANIZ ATION 02/14/2025 [place] [facility] DATE CREATED AUTHOR AUTHOR'S ORGANIZ ATION 02/15/2025 [place] [facility] DATE CREATED AUTHOR AUTHOR'S ORGANIZ ATION 02/25/2025 Miguel Castano [facility] Reason for Visit (unrecogniz ed section and content) Reason Comments Abdominal Pain sent up from [facility] for eval of right side abd pain since last night Reason Comments Acne Patient Care team informatio n (unrecognized section and content) Sleeve Separator Relationship Specialty Start Date End Date Unallocated, [place] Provider [address], [facility] PCP - General Family Medicine 11/29/23 Team Status: Active Member Role Status Dates NON STAFF Primary Care Provider Active Team Status: Inactive Member Role Status Dates NON STAFF Primary Care Provider Active Start: August 15, 2024 End: August 15, 2024 Thien Olea DO Emergency Provider Active St art: August 15, 2024 End: August 15, 2024 Sleeve Separator Relationship Specialty Start Date End Date Unallocated, Layne Jackson MD [address] [place] [address] PCP - General Family Medicine 11/29/23 Sleeve Separator Relationship Specialty Start Date End Date Unallocated, Layne Jackson MD [address] [place] [address] PCP - General Family Medicine 11/29/23 Goals (unrecognized section and content) Goals may be documented in a n alternate section FOR RECORDS PERTAINING TO PATIENTS WHO ARE OR HAVE BEEN ENROLLED IN A CHEMICAL DEPENDENCY/SUBSTANCEABUSE PROGRAM, SOME INFORMATION MAY BE OMITTED. This clinical summary was aggregated from multiple sources. Caution should be exercised in using it in the provision of clinical care. This summary normalizes information from multiple sources, and as a consequence, information in this document may materially change the coding, format and clinical context of patient data. In addition, data may be omitted in some cases. CLINICAL DECISIONS SHOULD BE BASED ON THE PRIMARY CLINICAL RECORDS. [employer] provides no warranty or guarantee of the accuracy or completeness of information in this document.
--- NOTE | 2025-03-01 17:40 | ED.FEMALEGU1 ---
HPI - Female Genitourinary General Chief complaint: Vaginal Bleeding Stated complaint: BLOOD DISCHARGE Time Seen by Provider: 03/01/25 17:22 Source: patient Mode of arrival: walk-in Limitations: no limitations History of Present Illness HPI Narrative: Patient is a 24-year-old female who presents to the emergency department for abnormal vaginal bleeding. She states she started bleeding 2 weeks ago and has had persistent bleeding, she is not saturating more than a pad an hour. She has had no fevers, cough, congestion, abdominal pain or pelvic pain. No urinary symptoms. She has a copper IUD in place for the last 5 years. She does not have a local ham sawyer since moving to the area 4 years ago. She states she came to the emergency department because she started passing small clots. Related Data Home Medications ?Medication ?Instructions ?Recorded ?Confirmed ergocalciferol (vitamin D2) 1,250 1,250 mcg PO .weekly 03/01/25 03/01/25 mcg (50,000 unit) capsule venlafaxine 37.5 mg 37.5 mg PO DAILY 03/01/25 03/01/25 capsule,extended release 24 hr Previous Rx's ?Medication ?Instructions ?Recorded ondansetron 4 mg disintegrating 4 mg PO Q6H PRN nausea and 11/22/24 tablet vomiting #20 tabs cephalexin 500 mg capsule 500 mg PO Q8H 5 days #15 caps 03/01/25 Allergies Allergy/AdvReac Type Severity Reaction Status Date / Time No Known Drug Allergies Allergy Verified 11/22/24 21:55 Review of Systems ROS Constitutional Denies: fever or chills Ears, nose, mouth, and throat Denies: throat pain or nasal discharge Cardiovascular Denies: chest pain Respiratory Denies: shortness of breath or cough Gastrointestinal Denies: abdominal pain, nausea or vomiting Genitourinary Reports: vaginal bleeding; Denies: painful urination or pelvic pain Musculoskeletal Denies: back pain Integumentary/Breast Denies: rash Hematologic/Lymphatic Denies: easy bruising or easy bleeding PFSH PFSH Social History Little interest or pleasure in doing things: not at all Feeling down, depressed, or hopeless: not at all Exam Narrative Exam Narrative: Gen.: Awake, alert, in no distress Head: Normocephalic, atraumatic ENT: Moist mucous membranes Respiratory: No respiratory distress, lungs clear bilaterally Cardio: Regular rate and rhythm Gastrointestinal: Abdomen is soft, nondistended and nontender to palpation Extremities: Moves extremities equally Psych: Normal mood and affect Neuro: No focal neuro deficit Skin: Warm, dry, intact Constitutional Vital Signs, click to edit/add: Last Vital Signs Temp 98.2 F 03/01/25 17:12 Pulse 69 03/01/25 21:11 Resp 18 03/01/25 21:11 BP 107/56 03/01/25 21:11 Pulse Ox 99 03/01/25 21:11 O2 Del Method Room Air 03/01/25 21:11 Course Vital Signs Vital signs: Vital Signs Temperature 98.2 F 03/01/25 17:12 Pulse Rate 96 H 03/01/25 17:12 Respiratory Rate 18 03/01/25 17:12 Blood Pressure 132/64 03/01/25 17:12 Pulse Oximetry 100 03/01/25 17:12 Oxygen Delivery Method Room Air 03/01/25 17:12 Temperature 98.2 F 03/01/25 17:12 Pulse Rate 69 03/01/25 21:11 Respiratory Rate 18 03/01/25 21:11 Blood Pressure 107/56 03/01/25 21:11 Pulse Oximetry 99 03/01/25 21:11 Oxygen Delivery Method Room Air 03/01/25 21:11 MDM - Female Genitourinary MDM Narrative Medical decision making narrative: test is negative, urine specimen shows a mild contaminated UTI. CBC is unremarkable. Patient sent for an ultrasound which shows appropriate positioning of the IUD with no other acute process, there is a very small complex right ovarian cyst. She was given education and reassurance. She is placed on Keflex for home for UTI and will be discharged home with an DIVISION MANAGER referral. Return to the emergency department if symptoms change or worsen. SUPERVISED APC VISIT, PHYSICIAN ATTESTATION: Based on the medical record the care appears appropriate. ? Medical Records Attestation: I reviewed the patient's medical records. Lab Data Attestation: I reviewed the patient's lab results. Labs: Lab Results 03/01/25 03/01/25 Range/Units 17:35 17:43 WBC 10.0 (4.0-11.0) 10^3/uL RBC 4.39 (4.20-5.40) 10^6/uL Hgb 12.6 (12.0-16.0) g/dL Hct 39.2 (36.0-48.0) % MCV 89.3 (81.0-99.0) fL MCH 28.7 (26.7-34.0) pg MCHC 32.1 (29.9-35.2) g/dL RDW 13.0 (11.0-15.0) % Plt Count 335 (150-450) 10^3/uL MPV 10.0 (9.5-13.5) fL Neut % (Auto) 71.9 (43.0-75.0) % Lymph % (Auto) 19.8 L (20.5-60.0) % Divide % (Auto) 6.8 (1.7-12.0) % Eos % (Auto) 0.6 L (0.9-7.0) % Baso % (Auto) 0.6 (0.2-2.0) % Neut # (Auto) 7.2 H (1.4-6.5) 10^3/uL Lymph # (Auto) 2.0 (1.2-3.8) 10^3/uL Divide # (Auto) 0.7 (0.3-0.8) 10^3/uL Eos # (Auto) 0.1 (0.0-0.7) 10^3/uL Baso # (Auto) 0.1 (0.0-0.1) 10^3/uL Abs Immat Gran (auto) 0.03 (0.00-0.03) 10^3/uL Imm/Tot Granulo (auto) 0.3 (0.0-0.5) % Serum HCG, Qual Negative (NEGATIVE) Urine Color Lt. yellow (YELLOW) Urine Clarity Clear (CLEAR) Urine pH 6.0 (5.0-9.0) Ur Specific [place] >=1.030 A (1.005-1.025) Urine Protein Negative (NEG/TRACE) mg/dL Urine Glucose (UA) Negative (NEGATIVE) mg/dL Urine Ketones Negative (NEGATIVE) mg/dL Urine Occult Blood Large A (NEGATIVE) Urine Nitrite Negative (NEGATIVE) Urine Bilirubin Negative (NEGATIVE) Urine Urobilinogen 0.2 (0.2-1.0) EU/dL Ur Leukocyte Esterase Trace A (NEGATIVE) Urine RBC 0-2 (0-2) #/HPF Urine WBC 5-10 A (NONE SEEN) #/HPF Ur Squamous Epith Cells Many A (NONE/RARE) #/LPF Urine Crystals None seen (None Seen) #/HPF Urine Bacteria Moderate A (NONE SEEN) #/HPF Urine Casts None seen (NONE SEEN) #/LPF Urine Mucus Large A (NONE SEEN) Ur Culture Indicated? Yes-[facility] [place] Imaging Data US - abdomen: Attestation: I have reviewed the pertinent imaging results. Discharge Plan Discharge Chief Complaint: Vaginal Bleeding Clinical Impression: Dysfunctional uterine bleeding, UTI (urinary tract infection) Patient Disposition: Home, Self-Care Time of Disposition Decision: 21:07 Condition: Good Mode of Transportation: Private Vehicle Prescriptions / Home Meds: New cephalexin 500 mg capsule 500 mg PO Q8H 5 Days Qty: 15 0RF No Action venlafaxine 37.5 mg capsule,extended release 24hr 37.5 mg PO DAILY ergocalciferol (vitamin D2) 1,250 mcg (50,000 unit) capsule 1,250 mcg PO .weekly ondansetron 4 mg tablet,disintegrating 4 mg PO Q6H PRN (Reason: nausea and vomiting) Qty: 20 0RF Print Language: Bel[place]ian Instructions: Abnormal (Dysfunctional) Uterine Bleeding (ED) Referrals: Emory Sheffield DO [Physician, DIVISION MANAGER] - As needed Discharge Date/Time: 03/01/25 21:12
[2025-03-01 17:54] LABS: Bilirubin Urine NEGATIVE (NEGATIVE); Blood Urine LARGE (NEGATIVE); Clarity Urine CLEAR (CLEAR); Color Urine LT. YELLOW (YELLOW); Glucose Urine UA NEGATIVE (NEGATIVE); Ketones Urine NEGATIVE (NEGATIVE); Leukocyte Esterase Urine TRACE (NEGATIVE); Nitrite Urine NEGATIVE (NEGATIVE); Protein Urine NEGATIVE (NEG/TRACE); Specific Gravity Urine >=1.030 (1.005-1.025); Urobilinogen Urine 0.2 EU/dL (0.2-1.0)
[2025-03-01 17:57] LABS: Basophils Absolute Auto 0.1 10^3/uL (0.0-0.1); Basophils Percent Auto 0.6 % (0.2-2.0); Eosinophils Absolute Auto 0.1 10^3/uL (0.0-0.7); Eosinophils Percent Auto 0.6 % (0.9-7.0); Hematocrit 39.2 % (36.0-48.0); Hemoglobin 12.6 g/dL (12.0-16.0); Immature Granulocytes Abs Auto 0.03 10^3/uL (0.00-0.03); Immature Granulocytes Pct Auto 0.3 % (0.0-0.5); Lymphocytes Percent Auto 19.8 % (20.5-60.0); Mean Corpuscular HGB Conc 32.1 g/dL (29.9-35.2); Mean Corpuscular Hemoglobin 28.7 pg (26.7-34.0); Mean Corpuscular Volume 89.3 fL (81.0-99.0); Monocytes Absolute Auto 0.7 10^3/uL (0.3-0.8); Monocytes Percent Auto 6.8 % (1.7-12.0); Neutrophils Absolute Auto 7.2 10^3/uL (1.4-6.5); Neutrophils Percent Auto 71.9 % (43.0-75.0); Platelet Count 335 10^3/uL (150-450); Red Blood Count 4.39 10^6/uL (4.20-5.40)
[2025-03-01 18:12] LABS: Bacteria Urine MODERATE #/HPF (NONE SEEN); Cast Seen? NONE SEEN #/LPF (NONE SEEN); Crystals Seen? None Seen #/HPF (None Seen); Mucus Urine LARGE (NONE SEEN); RBC Urine 0-2 #/HPF (0-2); Squamous Epithelial Cell Urine MANY #/LPF (NONE/RARE); Urine Culture Indicated YES-FRMC
[2025-03-01 18:27] LABS: HCG Qualitative NEGATIVE (NEGATIVE); Internal Control Within Normal Limits
[2025-03-01 21:11] VITALS: BP 107/56; PULSE 69; O2SAT 99
== END 2025-03-01 21:12 | disposition home or self-care (01) ==
PROVIDERS: Physician Assistant; Emergency Provider Emergency Medicine; PCP Nurse Practitioner
DX: N93.8 Other specified abnormal uterine and vaginal bleeding (principal); N39.0 Urinary tract infection, site not specified; Z97.5 Presence of (intrauterine) contraceptive device; N83.291 Other ovarian cyst, right side
CPT/HCPCS: 36415; 76830; 81001; 84703; 85025; 87086; 99284